=== PATIENT | female | born 1930 | race Two or more races ===

== ENCOUNTER 2016-06-08 01:21 | Emergency (ER) | payer MEDICARE, OTHER ==
[~2016-06-08] VITALS: Ht 162.6 cm; Wt 68.0 kg
[~2016-06-08 01:21] MED LIST: ANTIVERT25 MG ORAL; ASPIR-LOW81 MG PO; ATROVENT 0.03%30 M1 NASAL; CELEXA20 MG ORAL; DETROL LA2 MG ORAL; DIABETIC T100 MG/5 M; DILANTIN50 MG ORAL; DOC-Q-LACE100 M1 PO; EXELON1.5 MG ORAL; FOLIC ACID1 M1; IMODIUM2 MG ORAL; KENALOG IN ORABA1 EA APPLIC; LEVAQUIN750 MG ORAL; LINZESS290 MCG PO; MIRALAX17 G2 ORAL; MOBIC7.5 MG ORAL; OYSTER SHELL C500 MG PO; PEPCID20 MG ORAL; SIMVASTATIN20 MG ORAL; TOPIRAMATE100 MG ORAL; VOLTAREN 1%; ZESTRIL10 MG ORAL; ZOFRAN4 MG ORAL
[2016-06-08 01:30] VITALS: BP 148/78
[2016-06-08] MEDS ORDERED: Norco 5mg/325mg tab ORAL ONE (01:45)
--- NOTE | 2016-06-08 02:46 | Emergency Room Report ---
History of Present Illness General Chief Complaint: Pain Source: EMS Present Illness HPI The patient presents after a fall. According to the assisted living she has right shoulder pain. The patient after extensive questioning states that the pain is mainly in her right upper back when she attempts to ambulate. The shoulder does not hurt her. They allege she did not have a seizure. She has a h/o seizure disorder. No fevers, NVD, headache, dyspnea, chest pain, dysuria. Allergies: Coded Allergies: No Known Allergies (Unverified , 08/09/13) Patient History Past Medical History: see triage record, seizures Social History Narrative assisted living Last Menstrual Period: Unknown Now: No Reviewed Nursing Documentation: PMH: Agreed, PSxH: Agreed Nursing Documentation-PMH Past Medical History: No History, Except For Hx Cardiac Problems: Yes - Hyperlipidemia, anemia Hx Hypertension: Yes Hx Gastrointestinal Problems: Yes - Constipation Hx Neurological Problems: Yes - Alzh. Hx Seizures: Yes - S/P brain surg Review of Systems All Other Systems: negative except mentioned in HPI Physical Exam Vital Signs Date Time Temp Pulse Resp B/P Pulse Ox O2 Delivery O2 Flow Rate FiO2 06/08/16 01:18 98.4 80 16 148/78 100 Room Air Sp02 EP Interpretation: reviewed, normal General Appearance: well appearing, no apparent distress, alert Head: normocephalic, atraumatic Eyes: bilateral eye EOMI, bilateral eye PERRL, bilateral eye normal inspection ENT: moist mucus membranes - no lingual macerations Neck: supple Respiratory: lungs clear, normal breath sounds, other - tenderness R medial to scapula on R Cardiovascular #1: regular rate, rhythm Cardiovascular #2: 2+ radial (R) Gastrointestinal: normal inspection, normal bowel sounds, non tender, no mass, non-distended Musculoskeletal: gait/station normal, normal range of motion - including shoulder, tender - posterior R shoulder Neurologic: alert, motor strength/tone normal, DTRs symmetric, sensory intact, cerebellar normal, normal gait, speech normal - pressured, oriented - X2 Psychiatric: anxious Skin: no rash, other - no hematomata Medical Decision Making Diagnostic Impression: Primary Impression: Back contusion Qualified Codes: S20.221A - Contusion of right back wall of thorax, initial encounter Additional Impression: Fall Qualified Codes: W19.XXXA - Unspecified fall, initial encounter ER Course Patient presents post fall. Difficult to determine site injured - initially x- rayed R shoulder, but then re-evaluated and found to have more upper back pain. CT ordered. Ddx: fx, contusion, strain. Analgesic given. There is no physical evidence of seizure. No laboratory studies indicated. Xrays negative for acute traumatic injury. See various findings of CT below. Patient anxious and ambulating without difficulty. Patient stable for outpatient observation and treatment. Other X-Ray Diagnostic Results Other X-Ray Diagnostic Results : X-Ray Ordered: R shoulder EP Interpretation: Yes Findings: no fractures, no dislocation, no soft tissue swelling, other - djd Number of Views: 3 CT/MRI/US Diagnostic Results CT/MRI/US Diagnostic Results : Imaging Test Ordered: chest Impression Impression: Somewhat limited, due to lack of IV contrast ministration No definite acute traumatic abnormality demonstrated. Noncalcified 5 mm right upper lobe pulmonary nodule. This is stable since prior neck CT of 08/09/2013, and therefore presumed benign Chronic pulmonary parenchymal changes and bilateral basilar atelectasis Diffusely enlarged multinodular thyroid. This is also described on the neck CT scan of 08/09/2013 Cardiomegaly Incidental finding right upper pole renal cyst Last Vital Signs Date Time Temp Pulse Resp B/P Pulse Ox O2 Delivery O2 Flow Rate FiO2 06/08/16 08:44 98.1 79 16 141/79 100 Room Air Status: improved Disposition: ASSISTED LIVING Condition: Improved Scripts Lactulose (LACTULOSE*) 20 Gm/30 Ml Solution 30 ML ORAL BID Y for constipation, #240 ML 0 Refills Prov: Perez Garvey M.D. 06/08/16 Hydrocodone Bit/Acetaminophen 5-325* (NORCO 5-325*) 1 Each Tablet 1 TAB ORAL Q6H Y for For Pain, #16 TAB 0 Refills Prov: Perez Garvey M.D. 06/08/16 Referrals: SYED KIM (PCP) Perez Garvey M.D. Jun 08, 2016 02:46
[2016-06-08] MEDS ORDERED: NORCO 5-325 TA1 EACH ORAL (03:30)
[2016-06-08] MEDS ORDERED: LACTULOSE20 GM/301 ORAL (03:30)
[2016-06-08 03:48] VITALS: BP 144/75
[2016-06-08 05:48] VITALS: BP 146/79
[2016-06-08 07:21] VITALS: BP 141/79
[2016-06-08 08:44] VITALS: BP 141/79
--- NOTE | 2016-06-08 08:52 | Diagnostic Imaging Report ---
Clinical Indication: TRAUMA, chest pain Technique: Spiral acquisitions obtained through the chest. No IV contrast utilized, reason not stated. Multiplanar reconstructions generated. Total dose length product 618 mGycm. CTDIvol(s) 20 mGy. Dose reduction achieved using automated exposure control Comparison: None Findings:No acute fractures are evident. Lungs demonstrate an area of scarring and chronic volume loss at the right lung apex. There is also a 5 mm noncalcified nodule in the right upper lobe, series 4 image 14. This is also evident on prior neck CT, in retrospect. Chronic appearing interstitial changes and compressive atelectatic changes are seen at both lung bases. No pneumothorax. No infiltrates. No effusions. No masses. The heart is enlarged. No pericardial effusion is evident. No evidence of substernal hematoma. No mediastinal or hilar mass or adenopathy. There is a diffuse markedly enlarged heterogeneous thyroid, however. This is incompletely included on the imaging volume. No axillary or chest wall mass or adenopathy. The esophagus is unremarkable. The included upper abdomen and demonstrates a 3 cm cyst in the right renal upper pole. A calcification in the right renal hilum is probably arterial. Impression: Somewhat limited, due to lack of IV contrast ministration No definite acute traumatic abnormality demonstrated. Noncalcified 5 mm right upper lobe pulmonary nodule. This is stable since prior neck CT of 08/09/2013, and therefore presumed benign Chronic pulmonary parenchymal changes and bilateral basilar atelectasis Diffusely enlarged multinodular thyroid. This is also described on the neck CT scan of 08/09/2013 Cardiomegaly Incidental finding right upper pole renal cyst This agrees with the preliminary interpretation provided overnight by [facility]. The CT scanner at [facility] is accredited by the [employer] and the scans are performed using protocols designed to limit radiation exposure to as low as reasonably achievable to attain images of sufficient resolution adequate for diagnostic evaluation.
--- NOTE | 2016-06-08 14:48 | Diagnostic Imaging Report ---
Indication: TRAUMA Technique: 3 views of the right shoulder Comparison: none Findings: No acute fractures. No dislocations. The joint spaces are preserved. Impression:Negative This agrees with the preliminary interpretation provided by the emergency room physician
== END 2016-06-08 08:46 | disposition home or self-care (01) ==
LOC: EDBD 01:21 → EMR 02:03
DX: S20.221A Contusion of right back wall of thorax, initial encounter (principal); E78.5 Hyperlipidemia, unspecified; I10 Essential (primary) hypertension; G40.909 Epilepsy, unspecified, not intractable, without status epilepticus; R91.1 Solitary pulmonary nodule; J98.11 Atelectasis; E04.2 Nontoxic multinodular goiter; I51.7 Cardiomegaly; N28.1 Cyst of kidney, acquired; M25.511 Pain in right shoulder; G30.9 Alzheimer's disease, unspecified; F02.80 Dementia in other diseases classified elsewhere, unspecified severity, without behavioral disturbance, psychotic disturbance, mood disturbance, and anxiety; W18.30XA Fall on same level, unspecified, initial encounter; Y92.199 Unspecified place in other specified residential institution as the place of occurrence of the external cause; Y99.8 Other external cause status
CPT/HCPCS: 71250; 99284

== ENCOUNTER 2017-08-30 11:50 | Emergency (ER) | payer MEDICARE, OTHER ==
[~2017-08-30] VITALS: Ht 160 cm; Wt 72.6 kg
[~2017-08-30 11:50] MED LIST changes: +LACTULOSE20 GM/301 ORAL; +NORCO 5-325 TA1 EACH ORAL
[2017-08-30 11:54] VITALS: BP 157/33
[2017-08-30 12:45] VITALS: BP 148/42
[2017-08-30] MEDS ORDERED: Isovue-300 100ml vial INJ PRN (13:15)
[2017-08-30] MEDS ORDERED: LORazepam Inj 2mg/ml 1ml IV ONE (13:45)
[2017-08-30 14:50] LABS: BASOPHILS % (AUTO) 0.7 % (0.0-2.0); EOSINOPHILS % (AUTO) 0.5 % (0.0-3.0); HEMOGLOBIN 11.6 G/DL (12.0-16.0); LYMPHOCYTES % (AUTO) 23.6 % (20.0-45.0); MEAN CORPUSCULAR VOLUME 91 FL (80-99); MONOCYTES % (AUTO) 12.1 % (1.0-10.0); NEUTROPHILS % (AUTO) 63.1 % (45.0-75.0); PLATELET COUNT 309 K/UL (150-450); RED BLOOD COUNT 3.95 M/UL (4.20-5.40); RED CELL DISTRIBUTION WIDTH 12.1 % (11.6-14.8)
[2017-08-30 15:03] LABS: ANION GAP 8 mmol/L (5-15); BLOOD UREA NITROGEN 39 mg/dL (7-18); CALCIUM 9.7 MG/DL (8.5-10.1); CARBON DIOXIDE 25 MMOL/L (21-32); CHLORIDE 106 MMOL/L (98-107); CREATININE 1.4 MG/DL (0.55-1.30); POTASSIUM 3.4 MMOL/L (3.5-5.1); SODIUM 139 MMOL/L (136-145)
[2017-08-30 15:06] LABS: ALANINE AMINOTRANSFERASE 50 U/L (12-78); ALBUMIN 3.4 G/DL (3.4-5.0); ALBUMIN/GLOBULIN RATIO 0.8 (1.0-2.7); ALKALINE PHOSPHATASE 133 U/L (46-116); ASPARTATE AMINO TRANSFERASE 48 U/L (15-37); BILIRUBIN,TOTAL 0.4 MG/DL (0.2-1.0)
--- NOTE | 2017-08-30 15:49 | Emergency Room Report ---
History of Present Illness General Chief Complaint: Nausea, Vomiting, and Diarrhea Source: EMS Present Illness HPI 86-year-old female presents ED complaining of vomiting and diarrhea 1 day. Coming from [facility] facility. History of dementia. Upon arrival patient showing no signs of distress. No reported chest pain or shortness of breath. No other aggravating relieving factors. No other associated symptoms Allergies: Coded Allergies: No Known Allergies (Unverified , 08/09/13) Patient History Past Medical History: HTN, GERD, dementia, seizures, psych hx Past Surgical History: none Pertinent Family History: none Social History: Denies: smoking, alcohol use, drug use Last Menstrual Period: n/a Now: No Immunizations: UTD Reviewed Nursing Documentation: PMH: Agreed; PSxH: Agreed Nursing Documentation-PMH Hx Cardiac Problems: Yes - anemia, hyperlipidemia Hx Hypertension: Yes Hx Gastrointestinal Problems: Yes - GERD, constipation History Of Psychiatric Problem: Yes - depression Hx Neurological Problems: Yes - Alzh. Hx Seizures: Yes Review of Systems All Other Systems: negative except mentioned in HPI Physical Exam Vital Signs Date Time Temp Pulse Resp B/P (MAP) Pulse Ox O2 Delivery O2 Flow Rate FiO2 08/30/17 11:44 99.9 50 16 135/46 95 Room Air 99.9 Sp02 EP Interpretation: reviewed, normal General Appearance: no apparent distress, alert, GCS 15, non-toxic, other - dementia Head: normocephalic, atraumatic Eyes: bilateral eye normal inspection, bilateral eye PERRL ENT: hearing grossly normal, normal pharynx, no angioedema, normal voice Neck: full range of motion, supple/symm/no masses Respiratory: chest non-tender, lungs clear, normal breath sounds, speaking full sentences Cardiovascular #1: regular rate, rhythm, no edema Cardiovascular #2: 2+ carotid (R), 2+ carotid (L), 2+ radial (R), 2+ radial (L) , 2+ dorsalis pedis (R), 2+ dorsalis pedis (L) Gastrointestinal: normal bowel sounds, non tender, soft, non-distended, no guarding, no rebound Rectal: deferred Genitourinary: normal inspection, no CVA tenderness Musculoskeletal: back normal, gait/station normal, normal range of motion, non- tender Neurologic: alert, responsive, motor strength/tone normal, sensory intact, speech normal, other - dementia Psychiatric: other - dementia Reflexes: 3+ bicep (R), 3+ bicep (L), 3+ tricep (R), 3+ tricep (L), 3+ knee (R) , 3+ knee (L) Skin: normal color, no rash, warm/dry, well hydrated Lymphatic: no adenopathy Medical Decision Making Diagnostic Impression: Primary Impression: Gastroenteritis ER Course Hospital Course 86-year-old F presents to ED with vomiting, diarrhea differential diagnosis: gastritis, SBO, cholecystits, gastroenteritis Clinical course Patient placed on stretcher. On hospital monitor. After initial history and physical I ordered labs, IV fluids, Zofran and Zantac Labs - no leukocytosis, Cr 1.4, LFTs normal findings consistent with gastroenteritis. discussed findings with PMD Dr Riggs. No concern for C. difficile. Vital stable. He agrees that patient can be safely discharged back to facility after IV hydration I feel this is a highly complex case requiring extensive working including EKG/ Rhythm strip, Xray/CT/US, Blood/urine lab work, repeat exams while in ED, and administration of strong opiates/narcotics for pain control, admission to hospital or close patient follow up. Diagnosis - gastroenteritis Stable and discharged to SNF. Followup with PMD. Return to ED if symptoms recur or worsen Labs Test 08/30/17 14:25 White Blood Count 9.0 K/UL (4.8-10.8) Red Blood Count 3.95 M/UL (4.20-5.40) Hemoglobin 11.6 G/DL (12.0-16.0) Hematocrit 36.0 % (37.0-47.0) Mean Corpuscular Volume 91 FL (80-99) Mean Corpuscular Hemoglobin 29.4 PG (27.0-31.0) Mean Corpuscular Hemoglobin Concent 32.3 G/DL (32.0-36.0) Red Cell Distribution Width 12.1 % (11.6-14.8) Platelet Count 309 K/UL (150-450) Mean Platelet Volume 6.2 FL (6.5-10.1) Neutrophils (%) (Auto) 63.1 % (45.0-75.0) Lymphocytes (%) (Auto) 23.6 % (20.0-45.0) Monocytes (%) (Auto) 12.1 % (1.0-10.0) Eosinophils (%) (Auto) 0.5 % (0.0-3.0) Basophils (%) (Auto) 0.7 % (0.0-2.0) Sodium Level 139 MMOL/L (136-145) Potassium Level 3.4 MMOL/L (3.5-5.1) Chloride Level 106 MMOL/L (98-107) Carbon Dioxide Level 25 MMOL/L (21-32) Anion Gap 8 mmol/L (5-15) Blood Urea Nitrogen 39 mg/dL (7-18) Creatinine 1.4 MG/DL (0.55-1.30) Estimat Glomerular Filtration Rate mL/min (>60) Glucose Level 112 MG/DL (74-106) Calcium Level 9.7 MG/DL (8.5-10.1) Total Bilirubin 0.4 MG/DL (0.2-1.0) Aspartate Amino Transf (AST/SGOT) 48 U/L (15-37) Alanine Aminotransferase (ALT/SGPT) 50 U/L (12-78) Alkaline Phosphatase 133 U/L (46-116) Total Protein 7.7 G/DL (6.4-8.2) Albumin 3.4 G/DL (3.4-5.0) Globulin 4.3 g/dL Albumin/Globulin Ratio 0.8 (1.0-2.7) Lipase 215 U/L (73-393) Last Vital Signs Date Time Temp Pulse Resp B/P (MAP) Pulse Ox O2 Delivery O2 Flow Rate FiO2 08/30/17 11:54 99.9 58 12 157/33 99 Room Air 99.9 Status: improved Disposition: XFER SNF Condition: Stable Referrals: Addy Riggs MD Patient Instructions: Viral Gastroenteritis, Adult, [id number] Uche Lr MD Aug 30, 2017 15:49
[2017-08-30 17:40] VITALS: BP 140/65
[2017-08-30 17:45] VITALS: BP 140/65
== END 2017-08-30 17:45 ==
LOC: EDBD 11:50 → EMR 14:00
DX: K52.9 Noninfective gastroenteritis and colitis, unspecified (principal); K21.9 Gastro-esophageal reflux disease without esophagitis; F32.9 Major depressive disorder, single episode, unspecified; G30.9 Alzheimer's disease, unspecified; F02.80 Dementia in other diseases classified elsewhere, unspecified severity, without behavioral disturbance, psychotic disturbance, mood disturbance, and anxiety; E78.5 Hyperlipidemia, unspecified
CPT/HCPCS: 36415; 80053; 83690; 85025; 99284; J2405; S0028

== ENCOUNTER 2017-08-31 19:42 | Inpatient (IN) | payer MEDICARE, OTHER ==
[~2017-08-31] VITALS: Ht 170.2 cm; Wt 74.8 kg
[2017-08-31 20:00] VITALS: BP 158/67
--- NOTE | 2017-08-31 20:07 | Emergency Room Report ---
History of Present Illness General Chief Complaint: Generalized Weakness Source: Patient Present Illness HPI 86-year-old female coming from a [facility] facility for generalized weakness. Patient was seen yesterday and diagnosed with gastroenteritis had a normal workup done with the exception of mild renal insufficiency at 1.4. Patient screaming season saying that she does not want to be here. EMS states pt has been coughing Also daughter stating she is altered Allergies: Coded Allergies: No Known Allergies (Unverified , 08/09/13) Patient History Past Medical History: see triage record Past Surgical History: none Pertinent Family History: none Reviewed Nursing Documentation: PMH: Agreed; PSxH: Agreed Nursing Documentation-PMH Hx Cardiac Problems: Yes - anemia, hyperlipidemia Hx Hypertension: Yes Hx Gastrointestinal Problems: Yes - GERD, constipation Hx Neurological Problems: Yes - Alzh. Hx Seizures: Yes Review of Systems All Other Systems: negative except mentioned in HPI Physical Exam Vital Signs Date Time Temp Pulse Resp B/P (MAP) Pulse Ox O2 Delivery O2 Flow Rate FiO2 08/31/17 19:37 102.4 66 18 172/67 93 Room Air 102.4 Sp02 EP Interpretation: abnormal General Appearance: alert, moderate distress Head: normocephalic, atraumatic Eyes: bilateral eye normal inspection, bilateral eye PERRL, bilateral eye EOMI ENT: normal ENT inspection, normal pharynx, normal voice, moist mucus membranes Neck: normal inspection, full range of motion, supple Respiratory: lungs clear, no retraction, respiratory distress, speaking full sentences, other - +R sided dec b/s, chest symmetrical Cardiovascular #1: normal inspection, regular rate, rhythm, normal capillary refill Cardiovascular #2: 2+ radial (R), 2+ radial (L) Gastrointestinal: normal inspection, non tender, soft, non-distended, no guarding Musculoskeletal: normal inspection, back normal, normal range of motion, non- tender Neurologic: alert, responsive, motor strength/tone normal, sensory intact Skin: normal inspection, normal color, no rash, warm/dry, well hydrated, normal turgor Medical Decision Making Diagnostic Impression: Primary Impression: HCAP (healthcare-associated pneumonia) Additional Impressions: Altered mental status UTI (urinary tract infection) ER Course 86-year-old female coming from [facility] with generalized weakness DDX: Dehydration, electrolyte disturbance, UTI, pneumonia, worsening of her renal failure//enteritis Plan: Obtain labs, ua, EKG, CXR ER course: Patient has been monitored during ED stay, HD stable She was agitated so 2 mg Ativan given broad spec abx given - PNA noted on CXR Fluids given I discussed with Dr Rivera and let him know about patient's status Disposition: ADMIT TO MEDICINE Please note that this Emergency Department Report was dictated using [employer]/event planner technology software, occasionally this can lead to erroneous entry secondary to interpretation by the dictation equipment. EKG Diagnostic Results EP Interpretation: Yes Rate: normal Rhythm: NSR ST Segments: No acute changes ASA given to patient: No Rhythm Strip EP Interpretation: Yes Rate: 80 Rhythm: NSR, no PVCs, no ectopy Chest X-ray CXR: Ordered: Yes 1 view Indication: weakness EP interpretation: Yes Interpretation: R sided PNA Impression:R sided PNA Electronically signed by Fauzia Verma MD Laboratory Tests Test 08/31/17 20:46 09/01/17 07:50 White Blood Count 11.1 K/UL (4.8-10.8) H 13.0 K/UL (4.8-10.8) H Red Blood Count 3.81 M/UL (4.20-5.40) L 4.02 M/UL (4.20-5.40) L Hemoglobin 11.8 G/DL (12.0-16.0) L 12.0 G/DL (12.0-16.0) Hematocrit 34.6 % (37.0-47.0) L 36.8 % (37.0-47.0) L Mean Corpuscular Volume 91 FL (80-99) 91 FL (80-99) Mean Corpuscular Hemoglobin 31.0 PG (27.0-31.0) 29.9 PG (27.0-31.0) Mean Corpuscular Hemoglobin Concent 34.1 G/DL (32.0-36.0) 32.7 G/DL (32.0-36.0) Red Cell Distribution Width 12.1 % (11.6-14.8) 11.8 % (11.6-14.8) Platelet Count 254 K/UL (150-450) 251 K/UL (150-450) Mean Platelet Volume 5.7 FL (6.5-10.1) L 6.4 FL (6.5-10.1) L Neutrophils (%) (Auto) 80.9 % (45.0-75.0) H 76.1 % (45.0-75.0) H Lymphocytes (%) (Auto) 9.6 % (20.0-45.0) L 12.0 % (20.0-45.0) L Monocytes (%) (Auto) 9.0 % (1.0-10.0) 11.5 % (1.0-10.0) H Eosinophils (%) (Auto) 0.0 % (0.0-3.0) 0.1 % (0.0-3.0) Basophils (%) (Auto) 0.5 % (0.0-2.0) 0.4 % (0.0-2.0) Urine Color Pale yellow Urine Appearance Cloudy Urine pH 5 (4.5-8.0) Urine Specific [place] 1.010 (1.005-1.035) Urine Protein 3+ (NEGATIVE) H Urine Glucose (UA) Negative (NEGATIVE) Urine Ketones 1+ (NEGATIVE) H Urine Occult Blood 4+ (NEGATIVE) H Urine Nitrite Positive (NEGATIVE) H Urine Bilirubin Negative (NEGATIVE) Urine Urobilinogen Normal MG/DL (0.0-1.0) Urine Leukocyte Esterase 3+ (NEGATIVE) H Urine RBC 10-15 /HPF (0 - 2) H Urine WBC 30-40 /HPF (0 - 2) H Urine Squamous Epithelial Cells Few /LPF (NONE/OCC) Urine Bacteria Many /HPF (NONE) H Sodium Level 142 MMOL/L (136-145) 143 MMOL/L (136-145) Potassium Level 3.4 MMOL/L (3.5-5.1) L 3.2 MMOL/L (3.5-5.1) L Chloride Level 105 MMOL/L (98-107) 107 MMOL/L (98-107) Carbon Dioxide Level 28 MMOL/L (21-32) 23 MMOL/L (21-32) Anion Gap 9 mmol/L (5-15) 13 mmol/L (5-15) Blood Urea Nitrogen 27 mg/dL (7-18) H 25 mg/dL (7-18) H Creatinine 1.3 MG/DL (0.55-1.30) 1.3 MG/DL (0.55-1.30) Estimate Glomerular Filtration Rate mL/min (>60) mL/min (>60) Glucose Level 166 MG/DL (74-106) H 152 MG/DL (74-106) H Lactic Acid Level 1.60 mmol/L (0.4-2.0) Calcium Level 9.3 MG/DL (8.5-10.1) 8.8 MG/DL (8.5-10.1) Total Bilirubin 0.6 MG/DL (0.2-1.0) 0.8 MG/DL (0.2-1.0) Aspartate Amino Transferase (AST) 71 U/L (15-37) H 61 U/L (15-37) H Alanine Aminotransferase (ALT) 63 U/L (12-78) 58 U/L (12-78) Alkaline Phosphatase 150 U/L (46-116) H 135 U/L (46-116) H Total Creatine Kinase 116 U/L (26-308) Troponin I 0.618 ng/mL (0.000-0.056) 0.474 ng/mL (0.000-0.056) Pro-B-Type Natriuretic Peptide 4396 pg/mL (0-125) H Total Protein 7.9 G/DL (6.4-8.2) 7.4 G/DL (6.4-8.2) Albumin 3.5 G/DL (3.4-5.0) 3.1 G/DL (3.4-5.0) L Globulin 4.4 g/dL 4.3 g/dL Albumin/Globulin Ratio 0.8 (1.0-2.7) L 0.7 (1.0-2.7) L Last Vital Signs Date Time Temp Pulse Resp B/P (MAP) Pulse Ox O2 Delivery O2 Flow Rate FiO2 08/31/17 19:37 102.4 66 18 172/67 93 Room Air 102.4 Disposition: ADMITTED INPATIENT Condition: Fauzia Lobo M.D. Aug 31, 2017 20:07
[2017-08-31] MEDS ORDERED: LORazepam Inj 2mg/ml 1ml IV ONE (20:15)
[2017-08-31] MEDS ORDERED: Piperacillin/Tazobactam 3.375 GM in NS 110 ML IVPB ONE (20:30)
[2017-08-31] MEDS ORDERED: Vancomycin 1.5gm/D5W 250ml 250 ML IVPB ONE (20:30)
[2017-08-31 21:00] VITALS: BP 155/109
[2017-08-31 21:13] LABS: ANION GAP 9 mmol/L (5-15); BLOOD UREA NITROGEN 27 mg/dL (7-18); CALCIUM 9.3 MG/DL (8.5-10.1); CARBON DIOXIDE 28 MMOL/L (21-32); CHLORIDE 105 MMOL/L (98-107); CREATININE 1.3 MG/DL (0.55-1.30); POTASSIUM 3.4 MMOL/L (3.5-5.1); SODIUM 142 MMOL/L (136-145)
[2017-08-31 21:15] LABS: BASOPHILS % (AUTO) 0.5 % (0.0-2.0); HEMATOCRIT 34.6 % (37.0-47.0); HEMOGLOBIN 11.8 G/DL (12.0-16.0); LYMPHOCYTES % (AUTO) 9.6 % (20.0-45.0); MEAN CORPUSCULAR VOLUME 91 FL (80-99); NEUTROPHILS % (AUTO) 80.9 % (45.0-75.0); PLATELET COUNT 254 K/UL (150-450); RED BLOOD COUNT 3.81 M/UL (4.20-5.40); RED CELL DISTRIBUTION WIDTH 12.1 % (11.6-14.8); WHITE BLOOD COUNT 11.1 K/UL (4.8-10.8)
[2017-08-31 21:21] LABS: APPEARANCE,URINE CLOUDY; BILIRUBIN, URINE NEGATIVE (NEGATIVE); GLUCOSE, URINE (UA) NEGATIVE (NEGATIVE); KETONES,URINE 1+ (NEGATIVE); LEUKOCYTE ESTERASE ,URINE 3+ (NEGATIVE); NITRITE,URINE POSITIVE (NEGATIVE); PH,URINE 5 (4.5-8.0); PROTEIN,URINE 3+ (NEGATIVE); UROBILINOGEN,URINE NORMAL MG/DL (0.0-1.0)
[2017-08-31 21:23] LABS: ALANINE AMINOTRANSFERASE 63 U/L (12-78); ALBUMIN 3.5 G/DL (3.4-5.0); ALBUMIN/GLOBULIN RATIO 0.8 (1.0-2.7); ALKALINE PHOSPHATASE 150 U/L (46-116); ASPARTATE AMINO TRANSFERASE 71 U/L (15-37); BILIRUBIN,TOTAL 0.6 MG/DL (0.2-1.0); CREATINE KINASE 116 U/L (26-308)
[2017-08-31 21:24] LABS: COLOR,URINE PALE YELLOW
[2017-08-31 22:00] VITALS: BP 129/95
[2017-08-31 23:00] VITALS: BP 173/95
[2017-08-31] MEDS ORDERED: Enalaprilat 2.5mg/2ml Inj IV ONE (23:30)
[2017-09-01] VITALS (9 sets, daily range): BP systolic 113–182; BP diastolic 52–83
[2017-09-01] MEDS ORDERED: NUEDEXTA 20-101 EAC1 PO (00:25)
[2017-09-01] MEDS ORDERED: NORVASC5 MG ORAL (00:25)
[2017-09-01] MEDS ORDERED: HYZAAR 100-12.1 EACH ORAL (00:25)
[2017-09-01] MEDS ORDERED: Albuterol/Ipratropium 3ml neb HHN PRN (02:15)
[2017-09-01] MEDS ORDERED: Norco 5mg/325mg tab ORAL PRN (02:15)
--- NOTE | 2017-09-01 03:15 | History and Physical Report ---
DATE OF ADMISSION: 08/31/2017 CHIEF COMPLAINT: Coughing and altered mental status. HISTORY OF PRESENT ILLNESS: This is an 86-year-old [place] female who was brought in from assisted [facility] for complaint of coughing and being drowsy and altered for the past two days. The patient was seen in the emergency room yesterday. Her labs and workup were negative except for slight dehydration and the patient was hydrated and sent back to [facility]. However, she was seen today and she was more altered than yesterday and had a temperature in the assisted [facility] up to 101. The patient was taking Levaquin 750 for pneumonia and for bronchitis and apparently, the cough did not improve. She also had the workup of chest x-ray and UA in the emergency room. UA was consistent with urinary tract infection and chest x-ray was consistent with right-sided pneumonia. The patient received IV antibiotic Zosyn and vancomycin in the emergency room. PAST MEDICAL HISTORY: Includes history of hypertension, depression, history of constipation, GERD, osteoarthritis, hyperlipidemia, and has incontinence and memory loss. PAST SURGICAL HISTORY: None. FAMILY HISTORY: Noncontributory. SOCIAL HISTORY: No history of smoking. No alcohol use. No history of IV drug use. The patient resides at the [facility]. ALLERGIES: Questionable allergy to lisinopril. REVIEW OF SYSTEMS: Negative except for HPI. PHYSICAL EXAMINATION: VITAL SIGNS: Include temperature of 102.4, pulse 66, respiration 18, blood pressure 172/67, and pulse oximetry is 90% on room air. GENERAL APPEARANCE: Slightly drowsy with moderate distress. HEENT: Normocephalic and normochromic. Extraocular muscles intact. Throat is clear. NECK: Supple. No lymphadenopathy. LUNGS: Lungs showed right-sided decreased breath sounds. No crackles or rales and there is no respiratory distress. CARDIOVASCULAR: Regular rate and rhythm. No murmur. No gallop. ABDOMEN: Soft, nontender, and nondistended. Positive bowel sounds. EXTREMITIES: Positive for lymphedema. No cyanosis or clubbing. NEUROLOGICAL: Respond to commands and there are no motor or sensory deficits. SKIN: No rash. LABORATORY AND DIAGNOSTIC DATA: Sodium 142, potassium 3.4, chloride 105, carbon dioxide 28, BUN 27, creatinine 1.3, and glucose 166. Lactic acid 1.6. Calcium 9.3. AST 71, ALT 63, and alkaline phosphatase 150. Total creatine kinase 116. Troponin 0.618 and BNP 4396. Albumin 3.5. WBC 11.1, hemoglobin 11.8, hematocrit 34.6, platelet count 254,000, neutrophils 80.9, lymphocytes 9.6, monocytes 9, eosinophils 0, and basophils 0.5. UA showed +3 protein, +1 ketones, and +4 occult blood with positive nitrites and leukocyte esterase of +3, urine rbc 10 to 15, urine wbc 30 to 40, urine squamous epithelial cells are few, and urine bacteria many. Chest x-ray was consistent with right-sided pneumonia. EKG showed normal sinus rhythm, no acute changes. IMPRESSION: 1. Healthcare-associated pneumonia. 2. Altered mental status with mild encephalopathy. 3. Urinary tract infection. 4. Hypertension. 5. Elevated troponin. 6. Slight elevation in liver function tests. 7. History of depression. 8. Hyperlipidemia. 9. History of constipation. 10. Lymphedema. PLAN: 1. The patient will be started on IV antibiotic vancomycin and Zosyn to cover for pneumonia and urinary tract infection. The patient will have urine culture followed. 2. We will start the patient on her oral medications and adjust the blood pressure medications to control the blood pressure. 3. We will repeat the cardiac enzymes, troponin x3. We will have an echo done as an inpatient. The patient will be admitted for minimum of two-night stay for diagnoses of pneumonia and urinary tract infection with mild encephalopathy. Addy Riggs M.D. DR: POORNIMA JOB#: [id number] CC: PETER
[2017-09-01] MEDS: Piperacillin/Tazobactam 3.375 GM in D5W 110 ML IVPB SCH ×3 (04:00→23:12)
[2017-09-01 08:56] LABS: BASOPHILS % (AUTO) 0.4 % (0.0-2.0); EOSINOPHILS % (AUTO) 0.1 % (0.0-3.0); HEMATOCRIT 36.8 % (37.0-47.0); MEAN CORPUSCULAR VOLUME 91 FL (80-99); MONOCYTES % (AUTO) 11.5 % (1.0-10.0); NEUTROPHILS % (AUTO) 76.1 % (45.0-75.0); PLATELET COUNT 251 K/UL (150-450); RED BLOOD COUNT 4.02 M/UL (4.20-5.40); RED CELL DISTRIBUTION WIDTH 11.8 % (11.6-14.8)
[2017-09-01] MEDS: Citalopram Hydrobromide 10mg Tab ORAL SCH (09:00)
[2017-09-01] MEDS ORDERED: Hyzaar 12.5mg/50mg tab ORAL SCH (09:00)
[2017-09-01] MEDS ORDERED: Losartan 50mg tab ORAL SCH (09:00)
[2017-09-01] MEDS ORDERED: Nuedexta Capsule 20/10mg ORAL SCH (09:00)
[2017-09-01] MEDS: Aspirin Baby 81mg ORAL SCH (09:01)
[2017-09-01] MEDS: Heparin 5000 units/ml inj SUBQ SCH ×2 (09:03→23:18)
[2017-09-01] MEDS: Exelon 1.5mg cap ORAL SCH ×2 (09:23→18:03)
[2017-09-01] MEDS: Nuedexta Capsule 20/10mg ORAL SCH ×2 (09:23→18:03)
[2017-09-01 09:31] LABS: ALANINE AMINOTRANSFERASE 58 U/L (12-78); ALBUMIN 3.1 G/DL (3.4-5.0); ALBUMIN/GLOBULIN RATIO 0.7 (1.0-2.7); ALKALINE PHOSPHATASE 135 U/L (46-116); ANION GAP 13 mmol/L (5-15); ASPARTATE AMINO TRANSFERASE 61 U/L (15-37); BILIRUBIN,TOTAL 0.8 MG/DL (0.2-1.0); BLOOD UREA NITROGEN 25 mg/dL (7-18); CALCIUM 8.8 MG/DL (8.5-10.1); CARBON DIOXIDE 23 MMOL/L (21-32); CHLORIDE 107 MMOL/L (98-107); CREATININE 1.3 MG/DL (0.55-1.30); POTASSIUM 3.2 MMOL/L (3.5-5.1); SODIUM 143 MMOL/L (136-145)
--- NOTE | 2017-09-01 11:52 | Diagnostic Imaging Report ---
Indication: Chest pain Comparison: 08/09/2013 A single view chest radiograph was obtained. Findings: Interstitial edema and prominent vascularity demonstrated. There is evidence of a right pleural effusion. Cardiomegaly is present. The bones are mildly osteopenic. IMPRESSION: Congestive heart failure/interstitial edema. Right pleural effusion suspected
--- NOTE | 2017-09-01 12:57 | Consultation ---
History of Present Illness General Date patient seen: Sep 01, 2017 Chief Complaint: Generalized Weakness Present Illness HPI 86-year-old female with hx of mmp and dementia coming from a senior care facility for generalized weakness. the pt is agitated and yelling. She is unable to provide any hx. The staff are unable to care for her. the pt has waxing and waning of consciousness Allergies: Coded Allergies: No Known Allergies (Unverified , 08/09/13) Medication History Scheduled Amlodipine Besylate (Norvasc), 5 MG ORAL DAILY, (Reported) Aspirin* (Aspir-Low*), 81 MG PO DAILY, (Reported) Calcium Carbonate (Oyster Shell Calcium), 500 MG PO DAILY, (Reported) Citalopram Hydrobromide* (Celexa*), 20 MG ORAL DAILY, (Reported) Docusate Sodium (Doc-Q-Lace), 100 MG PO BID, (Reported) Famotidine (Pepcid), 20 MG ORAL BEDTIME, (Reported) Ipratropium [place] (Atrovent), 1 SPRAY NASAL BID, (Reported) Levofloxacin* (Levaquin*), 750 MG ORAL DAILY Linaclotide (Linzess), 290 MCG PO ACBREAKFAST, (Reported) Lisinopril* (Zestril*), 10 MG ORAL DAILY, (Reported) Losartan/Hydrochlorothiazide 100-12.5 Tablet (Hyzaar 100-12.5 Tablet), 1 TAB ORAL DAILY, (Reported) Meloxicam* (Mobic*), 7.5 MG ORAL DAILY, (Reported) Phenytoin (Dilantin), 100 MG ORAL QHS, (Reported) Rivastigmine Tartrate* (Exelon*), 1.5 MG ORAL TWICE A DAY, (Reported) Simvastatin (Zocor), 20 MG ORAL BEDTIME, (Reported) Tolterodine Tartrate (Detrol La), 2 MG ORAL DAILY, (Reported) Topiramate* (Topamax*), 100 MG ORAL DAILY, (Reported) Scheduled PRN Hydrocodone Bit/Acetaminophen 5-325* ([place] 5-325*), 1 TAB ORAL Q6H PRN for For Pain Lactulose (Lactulose*), 30 ML ORAL BID PRN for constipation Loperamide HCl (Loperamide), 2 MG ORAL BID PRN for Diarrhea, (Reported) Meclizine Hcl* (Antivert*), 25 MG ORAL BID PRN for for dizziness, (Reported) Ondansetron (Zofran), 4 MG ORAL Q8H PRN for Nausea & Vomiting, (Reported) Polyethylene Glycol 3350* (Miralax*), 17 GM ORAL DAILY PRN for Constipation, ( Reported) Triamcinolone (Triamcinolone Acetonide), 1 EA APPLIC BID PRN for skin irritation , (Reported) Miscellaneous Medications Dextromethorphan Hbr/Quinidine (Nuedexta 20-10 Mg Capsule), 1 EACH PO, (Reported ) Folic Acid (Folic Acid), (Reported) Guaifenesin (Diabetic Tussin Ex), (Reported) [voltaren gel 1 %], (Reported) Patient History Limited by: medical condition History Provided By: Patient, Medical Record, PMD Healthcare decision maker Resuscitation status Full Code Advanced Directive on File Past Medical/Surgical History Past Medical/Surgical History: (1) Peritonsillar abscess (2) Peritonsillar abscess (3) Peritonsillar abscess (4) Oropharyngeal mass (5) Oropharyngeal mass (6) Fall (7) Back contusion (8) Gastroenteritis (9) UTI (urinary tract infection) (10) Altered mental status (11) HCAP (healthcare-associated pneumonia) (12) Fever (13) Weakness (14) UTI (urinary tract infection) (15) Pneumonia Review of Systems Psychiatric: Reports: prior hx, anxiety, depressed feelings, emotional problems Physical Exam General Appearance: no apparent distress, lethargic, confused, agitated Last 24 Hour Vital Signs Date Time Temp Pulse Resp B/P (MAP) Pulse Ox O2 Delivery O2 Flow Rate FiO2 09/01/17 09:59 96.3 09/01/17 09:01 133/56 09/01/17 09:01 57 133/56 09/01/17 08:57 133/56 09/01/17 08:11 96.3 57 18 133/56 (81) 95 96.3 09/01/17 04:20 109 144/56 09/01/17 04:00 109 09/01/17 04:00 98.8 109 22 144/56 (85) 95 98.8 09/01/17 03:14 Room Air 09/01/17 02:44 99.1 64 22 147/62 (90) 96 99.1 09/01/17 00:50 99.1 60 18 129/83 100 Room Air 99.1 09/01/17 00:45 99.1 60 18 129/83 100 Room Air 99.1 09/01/17 00:30 99.1 62 18 155/52 99 Room Air 99.1 09/01/17 00:00 99.1 58 21 182/78 98 Room Air 99.1 08/31/17 23:51 182/78 08/31/17 23:00 99.1 65 18 173/95 99 Room Air 99.1 08/31/17 22:00 99.6 61 21 129/95 97 Room Air 99.6 08/31/17 21:00 100.2 62 18 155/109 96 Room Air 100.2 08/31/17 20:00 101.2 65 18 158/67 95 Room Air 101.2 08/31/17 19:37 102.4 66 18 172/67 93 Room Air 102.4 Intake and Output 08/31/17 09/01/17 19:00 07:00 Intake Total 1442.5 ml Output Total 400 ml Balance 1042.5 ml IV Total 1442.5 ml Output Urine Total 400 ml Laboratory Tests Test 08/31/17 20:46 09/01/17 07:50 White Blood Count 11.1 K/UL (4.8-10.8) H 13.0 K/UL (4.8-10.8) H Red Blood Count 3.81 M/UL (4.20-5.40) L 4.02 M/UL (4.20-5.40) L Hemoglobin 11.8 G/DL (12.0-16.0) L 12.0 G/DL (12.0-16.0) Hematocrit 34.6 % (37.0-47.0) L 36.8 % (37.0-47.0) L Mean Corpuscular Volume 91 FL (80-99) 91 FL (80-99) Mean Corpuscular Hemoglobin 31.0 PG (27.0-31.0) 29.9 PG (27.0-31.0) Mean Corpuscular Hemoglobin Concent 34.1 G/DL (32.0-36.0) 32.7 G/DL (32.0-36.0) Red Cell Distribution Width 12.1 % (11.6-14.8) 11.8 % (11.6-14.8) Platelet Count 254 K/UL (150-450) 251 K/UL (150-450) Mean Platelet Volume 5.7 FL (6.5-10.1) L 6.4 FL (6.5-10.1) L Neutrophils (%) (Auto) 80.9 % (45.0-75.0) H 76.1 % (45.0-75.0) H Lymphocytes (%) (Auto) 9.6 % (20.0-45.0) L 12.0 % (20.0-45.0) L Monocytes (%) (Auto) 9.0 % (1.0-10.0) 11.5 % (1.0-10.0) H Eosinophils (%) (Auto) 0.0 % (0.0-3.0) 0.1 % (0.0-3.0) Basophils (%) (Auto) 0.5 % (0.0-2.0) 0.4 % (0.0-2.0) Urine Color Pale yellow Urine Appearance Cloudy Urine pH 5 (4.5-8.0) Urine Specific [place] 1.010 (1.005-1.035) Urine Protein 3+ (NEGATIVE) H Urine Glucose (UA) Negative (NEGATIVE) Urine Ketones 1+ (NEGATIVE) H Urine Occult Blood 4+ (NEGATIVE) H Urine Nitrite Positive (NEGATIVE) H Urine Bilirubin Negative (NEGATIVE) Urine Urobilinogen Normal MG/DL (0.0-1.0) Urine Leukocyte Esterase 3+ (NEGATIVE) H Urine RBC 10-15 /HPF (0 - 2) H Urine WBC 30-40 /HPF (0 - 2) H Urine Squamous Epithelial Cells Few /LPF (NONE/OCC) Urine Bacteria Many /HPF (NONE) H Sodium Level 142 MMOL/L (136-145) 143 MMOL/L (136-145) Potassium Level 3.4 MMOL/L (3.5-5.1) L 3.2 MMOL/L (3.5-5.1) L Chloride Level 105 MMOL/L (98-107) 107 MMOL/L (98-107) Carbon Dioxide Level 28 MMOL/L (21-32) 23 MMOL/L (21-32) Anion Gap 9 mmol/L (5-15) 13 mmol/L (5-15) Blood Urea Nitrogen 27 mg/dL (7-18) H 25 mg/dL (7-18) H Creatinine 1.3 MG/DL (0.55-1.30) 1.3 MG/DL (0.55-1.30) Estimat Glomerular Filtration Rate mL/min (>60) mL/min (>60) Glucose Level 166 MG/DL (74-106) H 152 MG/DL (74-106) H Lactic Acid Level 1.60 mmol/L (0.4-2.0) Calcium Level 9.3 MG/DL (8.5-10.1) 8.8 MG/DL (8.5-10.1) Total Bilirubin 0.6 MG/DL (0.2-1.0) 0.8 MG/DL (0.2-1.0) Aspartate Amino Transf (AST/SGOT) 71 U/L (15-37) H 61 U/L (15-37) H Alanine Aminotransferase (ALT/SGPT) 63 U/L (12-78) 58 U/L (12-78) Alkaline Phosphatase 150 U/L (46-116) H 135 U/L (46-116) H Total Creatine Kinase 116 U/L (26-308) Troponin I 0.618 ng/mL (0.000-0.056) 0.474 ng/mL (0.000-0.056) Pro-B-Type Natriuretic Peptide 4396 pg/mL (0-125) H Total Protein 7.9 G/DL (6.4-8.2) 7.4 G/DL (6.4-8.2) Albumin 3.5 G/DL (3.4-5.0) 3.1 G/DL (3.4-5.0) L Globulin 4.4 g/dL 4.3 g/dL Albumin/Globulin Ratio 0.8 (1.0-2.7) L 0.7 (1.0-2.7) L Height (Feet): 5 Height (Inches): 7.00 Weight (Pounds): 165 Medications Current Medications Medications (Trade) Dose Ordered Sig/Kelly Route PRN Reason Start Time Stop Time Status Last Admin Dose Admin Acetaminophen (Tylenol) 650 mg Q6H PRN ORAL Mild Pain/Temp > 100.5 09/01/17 02:15 10/01/17 02:14 Acetaminophen/ Hydrocodone Bitart ([place] 5/325) 1 tab Q8H PRN ORAL For Pain 09/01/17 02:15 09/08/17 02:14 09/01/17 09:00 Albuterol/ Ipratropium (Albuterol/ Ipratropium) 3 ml Q6H PRN HHN Shortness of Breath 09/01/17 02:15 09/06/17 02:14 Amlodipine Besylate (Norvasc) 5 mg DAILY ORAL 09/01/17 09:00 10/01/17 08:59 09/01/17 09:01 Aspirin (ASA) 81 mg DAILY ORAL 09/01/17 09:00 10/01/17 08:59 09/01/17 09:01 Atorvastatin Calcium (Lipitor) 10 mg BEDTIME ORAL 09/01/17 21:00 10/01/17 20:59 Citalopram Hydrobromide (celeXA) 20 mg DAILY ORAL 09/01/17 09:00 10/01/17 08:59 09/01/17 09:00 Dextromethorphan/ Quinidine (Nuedexta Capsule) 1 cap BID ORAL 09/01/17 09:00 10/01/17 08:59 09/01/17 09:23 Famotidine (Pepcid) 20 mg BEDTIME ORAL 09/01/17 21:00 10/01/17 20:59 HCTZ/Losartan Potassium (Hyzaar 50-12.5) 1 tab DAILY ORAL 09/01/17 09:00 10/01/17 08:59 09/01/17 08:57 Heparin Sodium (Porcine) (Heparin 5000 units/ml) 5,000 units EVERY 12 HOURS SUBQ 09/01/17 09:00 10/01/17 08:59 09/01/17 09:03 Losartan Potassium (Cozaar) 50 mg DAILY ORAL 09/01/17 09:00 10/01/17 08:59 09/01/17 09:01 Meloxicam (Mobic) 7.5 mg DAILY ORAL 09/01/17 09:00 10/01/17 08:59 09/01/17 09:01 Ondansetron HCl (Zofran) 4 mg Q8H PRN ORAL Nausea & Vomiting 09/01/17 02:15 10/01/17 02:14 Phenytoin (Dilantin) 300 mg BEDTIME ORAL 09/01/17 21:00 10/01/17 20:59 Piperacillin Sod/ Tazobactam Sod 3.375 gm/Dextrose 110 ml @ 27.5 mls/hr Q8HR@0400,1200,2000 IVPB 09/01/17 04:00 09/08/17 03:59 09/01/17 12:01 Rivastigmine Tartrate (Exelon) 1.5 mg TWICE A DAY ORAL 09/01/17 09:00 10/01/17 08:59 09/01/17 09:23 Topiramate (Topamax) 100 mg DAILY ORAL 09/02/17 09:00 10/02/17 08:59 Vancomycin HCl (Vanco rx to dose) 1 ea DAILY PRN MISC Per rx protocol 09/01/17 02:45 10/01/17 02:44 Vancomycin HCl 1 gm/Dextrose 275 ml @ 183.708 mls/hr Q24H IVPB 09/02/17 00:00 09/07/17 00:00 Assessment/Plan Assessment/Plan Encephalopathy Agitation Dementia with behavioral dis -seroquel prn -provided ro - d/w staff Dayanna Luque MD Sep 01, 2017 12:57
--- NOTE | 2017-09-01 14:59 | Cardiology Report ---
APPROVED REPORT EXAM: Two-dimensional and M-mode echocardiogram with Doppler and color Doppler. INDICATION ALTERED LOC M-Mode DIMENSIONS IVSd2.1 (0.7-1.1cm)Left Atrium (MM)3.9 (1.6-4.0cm) LVDd4.7 (3.5-5.6cm)Aortic Root3.6 (2.0-3.7cm) PWd2.3 (0.7-1.1cm)Aortic Cusp Exc.1.9 (1.5-2.0cm) IVSs3.1 cm LVDs2.9 (2.5-4.0cm) PWs1.6 cm Normal left ventricular chamber size, systolic function and wall motion to extent visualized. Left ventricular ejection fraction estimated to be 55-60 %. No evidence of left ventricular hypertrophy. No evidence of pericardial effusion. All other cardiac chamber sizes are within normal limits. Focal aortic valve sclerosis with adequate cusp excursion. Thickened mitral valve leaflets with normal excursion. Mitral annulus and aortic root calcification. Pulmonic valve not well visualized. Normal tricuspid valve structure. IVC at 2.0 cm without physiologic collapse suggestive of increased RA pressure. A color flow and spectral Doppler study was performed and revealed: No aortic regurgitation. Mild mitral regurgitation. Normal left ventricular diastolic function . Mild tricuspid regurgitation. Tricuspid systolic velocities suggests peak right ventricular systolic pressure of 33 mmHg No Pulmonic regurgitation present.
--- NOTE | 2017-09-01 16:09 | Consultation ---
History of Present Illness General Date patient seen: Sep 01, 2017 Time patient seen: 16:00 Chief Complaint: Generalized Weakness Present Illness HPI Patient with history of hypertension, depression, history of constipation, GERD , osteoarthritis, hyperlipidemia, and has incontinence and memory loss.AOx1 was brought in by [facility] ambulance from [facility] with c/o generalized weakness. Patient was seen and released yesterday for similar symptoms. Patient is demented and easily agitated.The patient was taking Levaquin 750 for pneumonia and for bronchitis and apparently, the cough did not improve. She also had the workup of chest x-ray and UA in the emergency room. UA was consistent with urinary tract infection and chest x-ray was consistent with right-sided pneumonia. The patient received IV antibiotic Zosyn and vancomycin in the emergency room. cardiology consulted for elevated troponin. CXR with possible right pleural effusion, UA consistent with UTI, echo with preserved LV function. No chest pain currently. Allergies: Coded Allergies: No Known Allergies (Unverified , 08/09/13) Medication History Scheduled Amlodipine Besylate (Norvasc), 5 MG ORAL DAILY, (Reported) Aspirin* (Aspir-Low*), 81 MG PO DAILY, (Reported) Calcium Carbonate (Oyster Shell Calcium), 500 MG PO DAILY, (Reported) Citalopram Hydrobromide* (Celexa*), 20 MG ORAL DAILY, (Reported) Docusate Sodium (Doc-Q-Lace), 100 MG PO BID, (Reported) Famotidine (Pepcid), 20 MG ORAL BEDTIME, (Reported) Ipratropium [place] (Atrovent), 1 SPRAY NASAL BID, (Reported) Levofloxacin* (Levaquin*), 750 MG ORAL DAILY Linaclotide (Linzess), 290 MCG PO ACBREAKFAST, (Reported) Lisinopril* (Zestril*), 10 MG ORAL DAILY, (Reported) Losartan/Hydrochlorothiazide 100-12.5 Tablet (Hyzaar 100-12.5 Tablet), 1 TAB ORAL DAILY, (Reported) Meloxicam* (Mobic*), 7.5 MG ORAL DAILY, (Reported) Phenytoin (Dilantin), 100 MG ORAL QHS, (Reported) Rivastigmine Tartrate* (Exelon*), 1.5 MG ORAL TWICE A DAY, (Reported) Simvastatin (Zocor), 20 MG ORAL BEDTIME, (Reported) Tolterodine Tartrate (Detrol La), 2 MG ORAL DAILY, (Reported) Topiramate* (Topamax*), 100 MG ORAL DAILY, (Reported) Scheduled PRN Hydrocodone Bit/Acetaminophen 5-325* ([place] 5-325*), 1 TAB ORAL Q6H PRN for For Pain Lactulose (Lactulose*), 30 ML ORAL BID PRN for constipation Loperamide HCl (Loperamide), 2 MG ORAL BID PRN for Diarrhea, (Reported) Meclizine Hcl* (Antivert*), 25 MG ORAL BID PRN for for dizziness, (Reported) Ondansetron (Zofran), 4 MG ORAL Q8H PRN for Nausea & Vomiting, (Reported) Polyethylene Glycol 3350* (Miralax*), 17 GM ORAL DAILY PRN for Constipation, ( Reported) Triamcinolone (Triamcinolone Acetonide), 1 EA APPLIC BID PRN for skin irritation , (Reported) Miscellaneous Medications Dextromethorphan Hbr/Quinidine (Nuedexta 20-10 Mg Capsule), 1 EACH PO, (Reported ) Folic Acid (Folic Acid), (Reported) Guaifenesin (Diabetic Tussin Ex), (Reported) [voltaren gel 1 %], (Reported) Patient History Healthcare decision maker Resuscitation status Full Code Advanced Directive on File Review of Systems Constitutional: Reports: chills, sweats, fever, malaise, weakness Eye: Reports: no symptoms ENT: Reports: no symptoms Cardiovascular: Reports: no symptoms Gastrointestinal: Reports: no symptoms Genitourinary: Reports: no symptoms Musculoskeletal: Reports: no symptoms Skin: Reports: no symptoms Psychiatric: Reports: no symptoms Neurological: Reports: no symptoms Endocrine: Reports: no symptoms Hematologic/Lymphatic: Reports: no symptoms Physical Exam General Appearance: no apparent distress Lines, tubes and drains: peripheral HEENT: normocephalic Neck: non-tender Respiratory/Chest: chest wall non-tender Cardiovascular/Chest: normal peripheral pulses Abdomen: normal bowel sounds Extremities: normal range of motion Skin Exam: normal pigmentation Neurologic: motor weakness, sensory deficit, disoriented, depressed affect Last 24 Hour Vital Signs Date Time Temp Pulse Resp B/P (MAP) Pulse Ox O2 Delivery O2 Flow Rate FiO2 7/11/18 09:59 96.3 09/01/17 09:01 133/56 09/01/17 09:01 57 133/56 09/01/17 08:57 133/56 09/01/17 08:11 96.3 57 18 133/56 (81) 95 96.3 09/01/17 04:20 109 144/56 09/01/17 04:00 109 09/01/17 04:00 98.8 109 22 144/56 (85) 95 98.8 09/01/17 03:14 Room Air 09/01/17 02:44 99.1 64 22 147/62 (90) 96 99.1 09/01/17 00:50 99.1 60 18 129/83 100 Room Air 99.1 09/01/17 00:45 99.1 60 18 129/83 100 Room Air 99.1 09/01/17 00:30 99.1 62 18 155/52 99 Room Air 99.1 09/01/17 00:00 99.1 58 21 182/78 98 Room Air 99.1 08/31/17 23:51 182/78 08/31/17 23:00 99.1 65 18 173/95 99 Room Air 99.1 08/31/17 22:00 99.6 61 21 129/95 97 Room Air 99.6 08/31/17 21:00 100.2 62 18 155/109 96 Room Air 100.2 08/31/17 20:00 101.2 65 18 158/67 95 Room Air 101.2 08/31/17 19:37 102.4 66 18 172/67 93 Room Air 102.4 Intake and Output 08/31/17 09/01/17 19:00 07:00 Intake Total 1442.5 ml Output Total 400 ml Balance 1042.5 ml IV Total 1442.5 ml Output Urine Total 400 ml Laboratory Tests Test 08/31/17 20:46 09/01/17 07:50 White Blood Count 11.1 K/UL (4.8-10.8) H 13.0 K/UL (4.8-10.8) H Red Blood Count 3.81 M/UL (4.20-5.40) L 4.02 M/UL (4.20-5.40) L Hemoglobin 11.8 G/DL (12.0-16.0) L 12.0 G/DL (12.0-16.0) Hematocrit 34.6 % (37.0-47.0) L 36.8 % (37.0-47.0) L Mean Corpuscular Volume 91 FL (80-99) 91 FL (80-99) Mean Corpuscular Hemoglobin 31.0 PG (27.0-31.0) 29.9 PG (27.0-31.0) Mean Corpuscular Hemoglobin Concent 34.1 G/DL (32.0-36.0) 32.7 G/DL (32.0-36.0) Red Cell Distribution Width 12.1 % (11.6-14.8) 11.8 % (11.6-14.8) Platelet Count 254 K/UL (150-450) 251 K/UL (150-450) Mean Platelet Volume 5.7 FL (6.5-10.1) L 6.4 FL (6.5-10.1) L Neutrophils (%) (Auto) 80.9 % (45.0-75.0) H 76.1 % (45.0-75.0) H Lymphocytes (%) (Auto) 9.6 % (20.0-45.0) L 12.0 % (20.0-45.0) L Monocytes (%) (Auto) 9.0 % (1.0-10.0) 11.5 % (1.0-10.0) H Eosinophils (%) (Auto) 0.0 % (0.0-3.0) 0.1 % (0.0-3.0) Basophils (%) (Auto) 0.5 % (0.0-2.0) 0.4 % (0.0-2.0) Urine Color Pale yellow Urine Appearance Cloudy Urine pH 5 (4.5-8.0) Urine Specific [place] 1.010 (1.005-1.035) Urine Protein 3+ (NEGATIVE) H Urine Glucose (UA) Negative (NEGATIVE) Urine Ketones 1+ (NEGATIVE) H Urine Occult Blood 4+ (NEGATIVE) H Urine Nitrite Positive (NEGATIVE) H Urine Bilirubin Negative (NEGATIVE) Urine Urobilinogen Normal MG/DL (0.0-1.0) Urine Leukocyte Esterase 3+ (NEGATIVE) H Urine RBC 10-15 /HPF (0 - 2) H Urine WBC 30-40 /HPF (0 - 2) H Urine Squamous Epithelial Cells Few /LPF (NONE/OCC) Urine Bacteria Many /HPF (NONE) H Sodium Level 142 MMOL/L (136-145) 143 MMOL/L (136-145) Potassium Level 3.4 MMOL/L (3.5-5.1) L 3.2 MMOL/L (3.5-5.1) L Chloride Level 105 MMOL/L (98-107) 107 MMOL/L (98-107) Carbon Dioxide Level 28 MMOL/L (21-32) 23 MMOL/L (21-32) Anion Gap 9 mmol/L (5-15) 13 mmol/L (5-15) Blood Urea Nitrogen 27 mg/dL (7-18) H 25 mg/dL (7-18) H Creatinine 1.3 MG/DL (0.55-1.30) 1.3 MG/DL (0.55-1.30) Estimat Glomerular Filtration Rate mL/min (>60) mL/min (>60) Glucose Level 166 MG/DL (74-106) H 152 MG/DL (74-106) H Lactic Acid Level 1.60 mmol/L (0.4-2.0) Calcium Level 9.3 MG/DL (8.5-10.1) 8.8 MG/DL (8.5-10.1) Total Bilirubin 0.6 MG/DL (0.2-1.0) 0.8 MG/DL (0.2-1.0) Aspartate Amino Transf (AST/SGOT) 71 U/L (15-37) H 61 U/L (15-37) H Alanine Aminotransferase (ALT/SGPT) 63 U/L (12-78) 58 U/L (12-78) Alkaline Phosphatase 150 U/L (46-116) H 135 U/L (46-116) H Total Creatine Kinase 116 U/L (26-308) Troponin I 0.618 ng/mL (0.000-0.056) 0.474 ng/mL (0.000-0.056) Pro-B-Type Natriuretic Peptide 4396 pg/mL (0-125) H Total Protein 7.9 G/DL (6.4-8.2) 7.4 G/DL (6.4-8.2) Albumin 3.5 G/DL (3.4-5.0) 3.1 G/DL (3.4-5.0) L Globulin 4.4 g/dL 4.3 g/dL Albumin/Globulin Ratio 0.8 (1.0-2.7) L 0.7 (1.0-2.7) L Height (Feet): 5 Height (Inches): 7.00 Weight (Pounds): 165 Medications Current Medications Medications (Trade) Dose Ordered Sig/Kelly Route PRN Reason Start Time Stop Time Status Last Admin Dose Admin Acetaminophen (Tylenol) 650 mg Q6H PRN ORAL Mild Pain/Temp > 100.5 09/01/17 02:15 10/01/17 02:14 Acetaminophen/ Hydrocodone Bitart ([place] 5/325) 1 tab Q8H PRN ORAL For Pain 09/01/17 02:15 09/08/17 02:14 09/01/17 09:00 Albuterol/ Ipratropium (Albuterol/ Ipratropium) 3 ml Q6H PRN HHN Shortness of Breath 09/01/17 02:15 09/06/17 02:14 Amlodipine Besylate (Norvasc) 5 mg DAILY ORAL 09/01/17 09:00 10/01/17 08:59 09/01/17 09:01 Aspirin (ASA) 81 mg DAILY ORAL 09/01/17 09:00 10/01/17 08:59 09/01/17 09:01 Atorvastatin Calcium (Lipitor) 10 mg BEDTIME ORAL 09/01/17 21:00 10/01/17 20:59 Citalopram Hydrobromide (celeXA) 20 mg DAILY ORAL 09/01/17 09:00 10/01/17 08:59 09/01/17 09:00 Dextromethorphan/ Quinidine (Nuedexta Capsule) 1 cap BID ORAL 09/01/17 09:00 10/01/17 08:59 09/01/17 09:23 Famotidine (Pepcid) 20 mg BEDTIME ORAL 09/01/17 21:00 10/01/17 20:59 HCTZ/Losartan Potassium (Hyzaar 50-12.5) 1 tab DAILY ORAL 09/01/17 09:00 10/01/17 08:59 09/01/17 08:57 Heparin Sodium (Porcine) (Heparin 5000 units/ml) 5,000 units EVERY 12 HOURS SUBQ 09/01/17 09:00 10/01/17 08:59 09/01/17 09:03 Losartan Potassium (Cozaar) 50 mg DAILY ORAL 09/01/17 09:00 10/01/17 08:59 09/01/17 09:01 Meloxicam (Mobic) 7.5 mg DAILY ORAL 09/01/17 09:00 10/01/17 08:59 09/01/17 09:01 Ondansetron HCl (Zofran) 4 mg Q8H PRN ORAL Nausea & Vomiting 09/01/17 02:15 10/01/17 02:14 Phenytoin (Dilantin) 300 mg BEDTIME ORAL 09/01/17 21:00 10/01/17 20:59 Piperacillin Sod/ Tazobactam Sod 3.375 gm/Dextrose 110 ml @ 27.5 mls/hr Q8HR@0400,1200,2000 IVPB 09/01/17 04:00 09/08/17 03:59 09/01/17 12:01 Quetiapine Fumarate (SEROquel) 12.5 mg EVERY 4 HOURS PRN ORAL anxiety 09/01/17 13:00 10/01/17 12:59 Rivastigmine Tartrate (Exelon) 1.5 mg TWICE A DAY ORAL 09/01/17 09:00 10/01/17 08:59 09/01/17 09:23 Topiramate (Topamax) 100 mg DAILY ORAL 09/02/17 09:00 10/02/17 08:59 Vancomycin HCl (Vanco rx to dose) 1 ea DAILY PRN MISC Per rx protocol 09/01/17 02:45 10/01/17 02:44 Vancomycin HCl 1 gm/Dextrose 275 ml @ 183.708 mls/hr Q24H IVPB 09/02/17 00:00 09/07/17 00:00 Assessment/Plan Status: stable Assessment/Plan 1. Healthcare-associated pneumonia. 2. Altered mental status with mild encephalopathy. 3. Urinary tract infection. 4. Hypertension. 5. Elevated troponin. 6. Slight elevation in liver function tests. 7. History of depression. 8. Hyperlipidemia. 9. History of constipation. 10. Lymphedema. Plan Serial troponin -> downtrending, likely from urosepsis/PNA No indication for cath due to advanced age If troponin rises and conservatively give heparin gtt x48 hours Aspirin statin Physical therapy IV abx for UTI IV fluid hydration Amlodipine and Hyzaar for hypertension Perez Partida M.D. Sep 01, 2017 16:08
--- NOTE | 2017-09-01 16:18 | Cardiology Report ---
APPROVED REPORT EKG Measurement Heart [id number] Sinus rhythm with premature atrial complexes Nonspecific ST abnormality Abnormal ECG
--- NOTE | 2017-09-01 16:49 | Infectious Diseases Prog Note ---
Assessment/Plan Problems: (1) HCAP (healthcare-associated pneumonia) Assessment & Plan: continue vancomycin and zosyn empiric coverage for now, will order sputum culture (2) UTI (urinary tract infection) Assessment & Plan: will send urine culture, continue zosyn (3) Altered mental status Assessment & Plan: suspect metabolic and due to the above, continue neuro check (4) Fever Assessment & Plan: due to the above, improving, continue wide spectrum antibiotics and Tylenol (5) Sepsis Subjective Allergies: Coded Allergies: No Known Allergies (Unverified , 08/09/13) Objective Vital Signs Last 24 Hour Vital Signs Date Time Temp Pulse Resp B/P (MAP) Pulse Ox O2 Delivery O2 Flow Rate FiO2 09/01/17 09:59 96.3 09/01/17 09:01 133/56 09/01/17 09:01 57 133/56 09/01/17 08:57 133/56 09/01/17 08:11 96.3 57 18 133/56 (81) 95 96.3 09/01/17 04:20 109 144/56 09/01/17 04:00 109 09/01/17 04:00 98.8 109 22 144/56 (85) 95 98.8 09/01/17 03:14 Room Air 09/01/17 02:44 99.1 64 22 147/62 (90) 96 99.1 09/01/17 00:50 99.1 60 18 129/83 100 Room Air 99.1 09/01/17 00:45 99.1 60 18 129/83 100 Room Air 99.1 09/01/17 00:30 99.1 62 18 155/52 99 Room Air 99.1 09/01/17 00:00 99.1 58 21 182/78 98 Room Air 99.1 08/31/17 23:51 182/78 08/31/17 23:00 99.1 65 18 173/95 99 Room Air 99.1 08/31/17 22:00 99.6 61 21 129/95 97 Room Air 99.6 08/31/17 21:00 100.2 62 18 155/109 96 Room Air 100.2 08/31/17 20:00 101.2 65 18 158/67 95 Room Air 101.2 08/31/17 19:37 102.4 66 18 172/67 93 Room Air 102.4 Height (Feet): 5 Height (Inches): 7.00 Weight (Pounds): 165 Laboratory Tests Test 08/31/17 20:46 09/01/17 07:50 White Blood Count 11.1 K/UL (4.8-10.8) H 13.0 K/UL (4.8-10.8) H Red Blood Count 3.81 M/UL (4.20-5.40) L 4.02 M/UL (4.20-5.40) L Hemoglobin 11.8 G/DL (12.0-16.0) L 12.0 G/DL (12.0-16.0) Hematocrit 34.6 % (37.0-47.0) L 36.8 % (37.0-47.0) L Mean Corpuscular Volume 91 FL (80-99) 91 FL (80-99) Mean Corpuscular Hemoglobin 31.0 PG (27.0-31.0) 29.9 PG (27.0-31.0) Mean Corpuscular Hemoglobin Concent 34.1 G/DL (32.0-36.0) 32.7 G/DL (32.0-36.0) Red Cell Distribution Width 12.1 % (11.6-14.8) 11.8 % (11.6-14.8) Platelet Count 254 K/UL (150-450) 251 K/UL (150-450) Mean Platelet Volume 5.7 FL (6.5-10.1) L 6.4 FL (6.5-10.1) L Neutrophils (%) (Auto) 80.9 % (45.0-75.0) H 76.1 % (45.0-75.0) H Lymphocytes (%) (Auto) 9.6 % (20.0-45.0) L 12.0 % (20.0-45.0) L Monocytes (%) (Auto) 9.0 % (1.0-10.0) 11.5 % (1.0-10.0) H Eosinophils (%) (Auto) 0.0 % (0.0-3.0) 0.1 % (0.0-3.0) Basophils (%) (Auto) 0.5 % (0.0-2.0) 0.4 % (0.0-2.0) Urine Color Pale yellow Urine Appearance Cloudy Urine pH 5 (4.5-8.0) Urine Specific [place] 1.010 (1.005-1.035) Urine Protein 3+ (NEGATIVE) H Urine Glucose (UA) Negative (NEGATIVE) Urine Ketones 1+ (NEGATIVE) H Urine Occult Blood 4+ (NEGATIVE) H Urine Nitrite Positive (NEGATIVE) H Urine Bilirubin Negative (NEGATIVE) Urine Urobilinogen Normal MG/DL (0.0-1.0) Urine Leukocyte Esterase 3+ (NEGATIVE) H Urine RBC 10-15 /HPF (0 - 2) H Urine WBC 30-40 /HPF (0 - 2) H Urine Squamous Epithelial Cells Few /LPF (NONE/OCC) Urine Bacteria Many /HPF (NONE) H Sodium Level 142 MMOL/L (136-145) 143 MMOL/L (136-145) Potassium Level 3.4 MMOL/L (3.5-5.1) L 3.2 MMOL/L (3.5-5.1) L Chloride Level 105 MMOL/L (98-107) 107 MMOL/L (98-107) Carbon Dioxide Level 28 MMOL/L (21-32) 23 MMOL/L (21-32) Anion Gap 9 mmol/L (5-15) 13 mmol/L (5-15) Blood Urea Nitrogen 27 mg/dL (7-18) H 25 mg/dL (7-18) H Creatinine 1.3 MG/DL (0.55-1.30) 1.3 MG/DL (0.55-1.30) Estimat Glomerular Filtration Rate mL/min (>60) mL/min (>60) Glucose Level 166 MG/DL (74-106) H 152 MG/DL (74-106) H Lactic Acid Level 1.60 mmol/L (0.4-2.0) Calcium Level 9.3 MG/DL (8.5-10.1) 8.8 MG/DL (8.5-10.1) Total Bilirubin 0.6 MG/DL (0.2-1.0) 0.8 MG/DL (0.2-1.0) Aspartate Amino Transf (AST/SGOT) 71 U/L (15-37) H 61 U/L (15-37) H Alanine Aminotransferase (ALT/SGPT) 63 U/L (12-78) 58 U/L (12-78) Alkaline Phosphatase 150 U/L (46-116) H 135 U/L (46-116) H Total Creatine Kinase 116 U/L (26-308) Troponin I 0.618 ng/mL (0.000-0.056) 0.474 ng/mL (0.000-0.056) Pro-B-Type Natriuretic Peptide 4396 pg/mL (0-125) H Total Protein 7.9 G/DL (6.4-8.2) 7.4 G/DL (6.4-8.2) Albumin 3.5 G/DL (3.4-5.0) 3.1 G/DL (3.4-5.0) L Globulin 4.4 g/dL 4.3 g/dL Albumin/Globulin Ratio 0.8 (1.0-2.7) L 0.7 (1.0-2.7) L Current Medications Medications (Trade) Dose Ordered Sig/Kelly Route PRN Reason Start Time Stop Time Status Last Admin Dose Admin Acetaminophen (Tylenol) 650 mg Q6H PRN ORAL Mild Pain/Temp > 100.5 09/01/17 02:15 10/01/17 02:14 Acetaminophen/ Hydrocodone Bitart ([place] 5/325) 1 tab Q8H PRN ORAL For Pain 09/01/17 02:15 09/08/17 02:14 09/01/17 09:00 Albuterol/ Ipratropium (Albuterol/ Ipratropium) 3 ml Q6H PRN HHN Shortness of Breath 09/01/17 02:15 09/06/17 02:14 Amlodipine Besylate (Norvasc) 5 mg DAILY ORAL 09/01/17 09:00 10/01/17 08:59 09/01/17 09:01 Aspirin (ASA) 81 mg DAILY ORAL 09/01/17 09:00 10/01/17 08:59 09/01/17 09:01 Atorvastatin Calcium (Lipitor) 10 mg BEDTIME ORAL 09/01/17 21:00 10/01/17 20:59 Citalopram Hydrobromide (celeXA) 20 mg DAILY ORAL 09/01/17 09:00 10/01/17 08:59 09/01/17 09:00 Dextromethorphan/ Quinidine (Nuedexta Capsule) 1 cap BID ORAL 09/01/17 09:00 10/01/17 08:59 09/01/17 09:23 Famotidine (Pepcid) 20 mg BEDTIME ORAL 09/01/17 21:00 10/01/17 20:59 Heparin Sodium (Porcine) (Heparin 5000 units/ml) 5,000 units EVERY 12 HOURS SUBQ 09/01/17 09:00 10/01/17 08:59 09/01/17 09:03 Meloxicam (Mobic) 7.5 mg DAILY ORAL 09/01/17 09:00 10/01/17 08:59 09/01/17 09:01 Ondansetron HCl (Zofran) 4 mg Q8H PRN ORAL Nausea & Vomiting 09/01/17 02:15 10/01/17 02:14 Phenytoin (Dilantin) 300 mg BEDTIME ORAL 09/01/17 21:00 10/01/17 20:59 Piperacillin Sod/ Tazobactam Sod 3.375 gm/Dextrose 110 ml @ 27.5 mls/hr Q8HR@0400,1200,2000 IVPB 09/01/17 04:00 09/08/17 03:59 09/01/17 12:01 Quetiapine Fumarate (SEROquel) 12.5 mg EVERY 4 HOURS PRN ORAL anxiety 09/01/17 13:00 10/01/17 12:59 Rivastigmine Tartrate (Exelon) 1.5 mg TWICE A DAY ORAL 09/01/17 09:00 10/01/17 08:59 09/01/17 09:23 Topiramate (Topamax) 100 mg DAILY ORAL 09/02/17 09:00 10/02/17 08:59 Vancomycin HCl (Vanco rx to dose) 1 ea DAILY PRN MISC Per rx protocol 09/01/17 02:45 10/01/17 02:44 Vancomycin HCl 1 gm/Dextrose 275 ml @ 183.708 mls/hr Q24H IVPB 09/02/17 00:00 09/07/17 00:00 Maria G De León M.D. Sep 01, 2017 16:49
--- NOTE | 2017-09-01 16:56 | General Progress Note ---
Assessment/Plan Status: stable Assessment/Plan 1. Healthcare-associated pneumonia - cont vanco and zosyn. ID will follow the patient. 2. Altered mental status with mild encephalopathy. 3. Urinary tract infection - cont vanco and zosyn IV antibiotic. 4. Hypertension - cont norvasc 5 mg daily 5. Elevated troponin - cardiology consult done and elevated troponin 2nd to UTI and pneumonia most likely. 6. Slight elevation in liver function tests - Repeat LFT improved. 7. History of depression 8. Hyperlipidemia - cont home statin. 9. History of constipation - stable now. 10. Lymphedema. 11. slarred speech - CT of head ordered to eval for possible CVA. speech eval. Subjective Date patient seen: Sep 01, 2017 Time patient seen: 04:00 Constitutional: Reports: weakness HEENT: Reports: no symptoms Cardiovascular: Reports: no symptoms Respiratory: Reports: no symptoms Gastrointestinal/Abdominal: Reports: no symptoms Genitourinary: Reports: no symptoms Neurologic/Psychiatric: Reports: no symptoms Endocrine: Reports: no symptoms Hematologic/Lymphatic: Reports: no symptoms Allergies: Coded Allergies: No Known Allergies (Unverified , 08/09/13) Subjective She has slight slarred speech. no sob or chest pain. no fever or chills. no nausea or vomiting. Objective Last 24 Hour Vital Signs Date Time Temp Pulse Resp B/P (MAP) Pulse Ox O2 Delivery O2 Flow Rate FiO2 09/01/17 09:59 96.3 09/01/17 09:01 133/56 09/01/17 09:01 57 133/56 09/01/17 08:57 133/56 09/01/17 08:11 96.3 57 18 133/56 (81) 95 96.3 09/01/17 04:20 109 144/56 09/01/17 04:00 109 09/01/17 04:00 98.8 109 22 144/56 (85) 95 98.8 09/01/17 03:14 Room Air 09/01/17 02:44 99.1 64 22 147/62 (90) 96 99.1 09/01/17 00:50 99.1 60 18 129/83 100 Room Air 99.1 09/01/17 00:45 99.1 60 18 129/83 100 Room Air 99.1 09/01/17 00:30 99.1 62 18 155/52 99 Room Air 99.1 09/01/17 00:00 99.1 58 21 182/78 98 Room Air 99.1 08/31/17 23:51 182/78 08/31/17 23:00 99.1 65 18 173/95 99 Room Air 99.1 08/31/17 22:00 99.6 61 21 129/95 97 Room Air 99.6 08/31/17 21:00 100.2 62 18 155/109 96 Room Air 100.2 08/31/17 20:00 101.2 65 18 158/67 95 Room Air 101.2 08/31/17 19:37 102.4 66 18 172/67 93 Room Air 102.4 Intake and Output 08/31/17 09/01/17 19:00 07:00 Intake Total 1442.5 ml Output Total 400 ml Balance 1042.5 ml IV Total 1442.5 ml Output Urine Total 400 ml Laboratory Tests 08/31/17 20:46: White Blood Count 11.1H, Red Blood Count 3.81L, Hemoglobin 11.8L, Hematocrit 34.6L, Mean Corpuscular Volume 91, Mean Corpuscular Hemoglobin 31.0, Mean Corpuscular Hemoglobin Concent 34.1, Red Cell Distribution Width 12.1, Platelet Count 254, Mean Platelet Volume 5.7L, Neutrophils (%) (Auto) 80.9H, Lymphocytes (%) (Auto) 9.6L, Monocytes (%) (Auto) 9.0, Eosinophils (%) (Auto) 0.0, Basophils (%) (Auto) 0.5, Urine Color Pale yellow, Urine Appearance Cloudy, Urine pH 5, Urine Specific [place] 1.010, Urine Protein 3+H, Urine Glucose (UA) Negative, Urine Ketones 1+H, Urine Occult Blood 4+H, Urine Nitrite PositiveH, Urine Bilirubin Negative, Urine Urobilinogen Normal, Urine Leukocyte Esterase 3+ H, Urine RBC 10-15H, Urine WBC 30-40H, Urine Squamous Epithelial Cells Few, Urine Bacteria ManyH, Sodium Level 142, Potassium Level 3.4L, Chloride Level 105 , Carbon Dioxide Level 28, Anion Gap 9, Blood Urea Nitrogen 27H, Creatinine 1.3 , Estimat Glomerular Filtration Rate , Glucose Level 166H, Lactic Acid Level 1.60, Calcium Level 9.3, Total Bilirubin 0.6, Aspartate Amino Transf (AST/SGOT) 71H, Alanine Aminotransferase (ALT/SGPT) 63, Alkaline Phosphatase 150H, Total Creatine Kinase 116, Troponin I 0.618H, Pro-B-Type Natriuretic Peptide 4396H, Total Protein 7.9, Albumin 3.5, Globulin 4.4, Albumin/Globulin Ratio 0.8L 09/01/17 07:50: White Blood Count 13.0H, Red Blood Count 4.02L, Hemoglobin 12.0, Hematocrit 36.8L, Mean Corpuscular Volume 91, Mean Corpuscular Hemoglobin 29.9, Mean Corpuscular Hemoglobin Concent 32.7, Red Cell Distribution Width 11.8, Platelet Count 251, Mean Platelet Volume 6.4L, Neutrophils (%) (Auto) 76.1H, Lymphocytes (%) (Auto) 12.0L, Monocytes (%) (Auto) 11.5H, Eosinophils (%) (Auto) 0.1, Basophils (%) (Auto) 0.4, Sodium Level 143, Potassium Level 3.2L, Chloride Level 107, Carbon Dioxide Level 23, Anion Gap 13, Blood Urea Nitrogen 25H, Creatinine 1.3, Estimat Glomerular Filtration Rate , Glucose Level 152H, Calcium Level 8.8, Total Bilirubin 0.8, Aspartate Amino Transf (AST/SGOT) 61H, Alanine Aminotransferase (ALT/SGPT) 58, Alkaline Phosphatase 135H, Troponin I 0.474H, Total Protein 7.4, Albumin 3.1L, Globulin 4.3, Albumin/Globulin Ratio 0.7L Height (Feet): 5 Height (Inches): 7.00 Weight (Pounds): 165 General Appearance: no apparent distress, lethargic EENT: normal ENT inspection Neck: non-tender, normal alignment, supple Cardiovascular: normal peripheral pulses, normal rate, regular rhythm Respiratory/Chest: normal breath sounds, rhonchi - right Abdomen: normal bowel sounds, non tender, soft Extremities: normal range of motion, non-tender Edema: no edema noted Arm (L), no edema noted Arm (R), no edema noted Leg (L), no edema noted Leg (R), no edema noted Pedal (L), no edema noted Pedal (R), no edema noted Generalized Neurologic: alert, responsive Skin: warm/dry Lymphatic: normal anterior cervical (L), normal anterior cervical (R), normal posterior cervical (L), normal posterior cervical (R), normal submandibular (L) , normal submandibular (R), normal supraclavicular (L), normal supraclavicular ( R), normal axillary (L), normal axillary (R), normal inguinal (L), normal inguinal (R), normal other Addy Riggs MD Sep 01, 2017 16:56
[2017-09-01] MEDS ORDERED: NS 275ml ONE (16:58)
[2017-09-01] MEDS: Phenytoin 100mg cap ORAL SCH (21:00)
--- NOTE | 2017-09-01 22:45 | Consultation ---
DATE OF CONSULTATION: 09/01/2017 INFECTIOUS DISEASE CONSULTATION CONSULTING PHYSICIAN: Maria G De León M.D. REQUESTING PHYSICIAN: Addy Riggs M.D. REASON FOR CONSULTATION: Healthcare-acquired pneumonia, UTI, and sepsis with fever. Recommendation for antibiotics treatment. HISTORY OF PRESENT ILLNESS: The patient is an 86-year-old female with past medical history of hypertension, depression, GERD, osteoarthritis, hyperlipidemia, incontinence, brain hemorrhage, status post craniotomy as per the daughter, who was brought in from assisted living for altered mental status with fever. The patient has not been eating well over at the facility. She had cough when she eats and she has been drowsy for the last couple of days. The patient visited the emergency room on the 9, and she was found to be dehydrated, so she received IV fluid and she was sent back to the assisted living, but she spiked fever up to 101 even though she was taking Levaquin to cover for possible pneumonia and bronchitis, but it did not help with her fever, so she was sent back to the emergency room for evaluation again. She had a chest x-ray, which showed bilateral interstitial infiltration suspicious for pneumonia. Urinalysis showed evidence of urine infection, so she was started on vancomycin and Zosyn empiric coverage and Infectious Disease consultation was requested for further evaluation and management. As of note, the patient is altered and cannot provide any history. History was mainly obtained from the daughter at the bedside and the medical record. REVIEW OF SYSTEMS: Unable to obtain. The patient is altered. PAST MEDICAL HISTORY: Significant for hypertension, depression, constipation, GERD, osteoarthritis, hyperlipidemia, incontinence, memory loss, brain hemorrhage, status post craniotomy. PAST SURGICAL HISTORY: She had craniotomy for intracranial hemorrhage in the past. FAMILY HISTORY: Unable to obtain. SOCIAL HISTORY: The patient lives in the assisted living. No recent drugs, tobacco, or alcohol. ALLERGIES: Possible allergy to lisinopril. MEDICATIONS: She is on vancomycin and Zosyn. For the rest of her medications, please refer to [facility]. LABORATORY AND DIAGNOSTIC DATA: Labs showed white count of 13,000, hemoglobin of 12, platelet count of 251,000. BUN of 25, creatinine of 1.3. Urinalysis showed +3 leukocyte esterase, wbc of 30-40, and many bacteria in the urine. Microbiology, blood culture and urine culture pending. Imaging, chest x-ray showed congestive heart failure, interstitial edema, right pleural effusion suspected. Echocardiogram showed EF of 55% to 60%, no evidence of left ventricular hypertrophy, no evidence of pericardial effusion. PHYSICAL EXAMINATION: VITAL SIGNS: Temperature 99.2, pulse 57, respiration 18, blood pressure 133/57, saturation 95% on room air. GENERAL: An elderly female, up in bed, alert, Farsi speaker, responded to verbal command, but confused, not coherent. HEENT: Normocephalic and atraumatic. Mild facial droop to the right side, unclear whether it is chronic or acute. Pupils reactive to light. Unable to assess oral mucosa. The patient does not follow command well. NECK: Supple. No lymphadenopathy. CARDIOVASCULAR: Regular rate and rhythm. No murmur or gallop. LUNGS: She had expiratory wheezing at the bases with diminished breathing sounds. ABDOMEN: Soft, obese, nontender, and nondistended. Normal bowel sounds. No hepatosplenomegaly or ascites. EXTREMITIES: She has chronic lymphedema on both lower extremities. Unable to palpate a pulse. SKIN: No rash. No hives. ASSESSMENT AND RECOMMENDATION: 1. Healthcare-acquired pneumonia with possible aspiration. Continue vancomycin and Zosyn empiric coverage for now. We will send sputum culture, monitor chest x-ray, repeat one in the morning. Recommend speech evaluation. 2. UTI. We will send urine culture if not done and continue Zosyn empiric coverage for now pending culture. 3. Sepsis due to the above. Continue wide-spectrum antibiotics, monitor culture and laboratories. 4. Fever due to the above, improving. Continue wide-spectrum antibiotics and Tylenol as needed. 5. Altered mental status, suspect metabolic, possibly due to sepsis. Continue neuro-check. Recommend CT of the head noncontrast to rule out intracranial hemorrhage. Thank you for the consult. Plan of care was discussed with the daughter and the primary physician at the time the patient was seen. Maria G De León M.D. DR: Buddy JOB#: [id number] CC:
[2017-09-02] VITALS: BP 150/58
[2017-09-02] MEDS ORDERED: Vancomycin 1gm/D5W 275ml IVPB SCH ×2
[2017-09-02 04:00] VITALS: BP 143/84
[2017-09-02] MEDS: Piperacillin/Tazobactam 3.375 GM in D5W 110 ML IVPB SCH ×3 (05:33→20:33)
[2017-09-02 07:25] LABS: ANION GAP 11 mmol/L (5-15); BLOOD UREA NITROGEN 24 mg/dL (7-18); CALCIUM 8.7 MG/DL (8.5-10.1); CARBON DIOXIDE 25 MMOL/L (21-32); CHLORIDE 107 MMOL/L (98-107); CREATININE 1.4 MG/DL (0.55-1.30); POTASSIUM 3.3 MMOL/L (3.5-5.1); SODIUM 143 MMOL/L (136-145)
[2017-09-02 07:26] LABS: BASOPHILS % (AUTO) 0.5 % (0.0-2.0); HEMATOCRIT 36.9 % (37.0-47.0); HEMOGLOBIN 12.3 G/DL (12.0-16.0); MEAN CORPUSCULAR VOLUME 92 FL (80-99); MONOCYTES % (AUTO) 9.8 % (1.0-10.0); NEUTROPHILS % (AUTO) 77.6 % (45.0-75.0); PLATELET COUNT 238 K/UL (150-450); RED BLOOD COUNT 4.04 M/UL (4.20-5.40); RED CELL DISTRIBUTION WIDTH 12.1 % (11.6-14.8); WHITE BLOOD COUNT 11.9 K/UL (4.8-10.8)
[2017-09-02 08:00] VITALS: BP 152/64
--- NOTE | 2017-09-02 09:01 | General Progress Note ---
Assessment/Plan Status: stable Assessment/Plan 1. Healthcare-associated pneumonia - cont vanco and zosyn. ID following the patient. 2. Altered mental status with mild metabolic encephalopathy - improving. 3. Urinary tract infection - cont vanco and zosyn IV antibiotic. follow cultures. 4. Hypertension - cont norvasc 5 mg daily 5. Elevated troponin - cardiology consult done and elevated troponin 2nd to UTI and pneumonia most likely. 6. Slight elevation in liver function tests - Repeat LFT improved. 7. History of depression 8. Hyperlipidemia - cont home statin. 9. History of constipation - stable now. 10. Lymphedema. 11. slarred speech - improved. CT of head result pending to r/o CVA. speech eval. 12. Generalized weakness - P.T. and O.T. eval and txt done. 13. possible sepsis - cont IV abx for now. follow CX. Subjective Date patient seen: Sep 02, 2017 Time patient seen: 08:45 Constitutional: Reports: weakness HEENT: Reports: no symptoms Cardiovascular: Reports: no symptoms Respiratory: Reports: no symptoms Gastrointestinal/Abdominal: Reports: no symptoms Genitourinary: Reports: no symptoms Neurologic/Psychiatric: Reports: no symptoms Endocrine: Reports: no symptoms Hematologic/Lymphatic: Reports: no symptoms Allergies: Coded Allergies: No Known Allergies (Unverified , 08/09/13) Subjective She is better today. no sob or chest pain. low grade fever. no chills. no nausea or vomiting. Objective Last 24 Hour Vital Signs Date Time Temp Pulse Resp B/P (MAP) Pulse Ox O2 Delivery O2 Flow Rate FiO2 09/02/17 04:00 97.6 64 22 143/84 (103) 92 97.6 09/02/17 04:00 50 09/02/17 00:00 99.5 62 28 150/58 (88) 93 99.5 09/01/17 21:02 61 18 Room Air 09/01/17 21:00 Room Air 09/01/17 20:00 98.8 70 30 145/60 (88) 93 98.8 09/01/17 20:00 69 09/01/17 16:00 99.2 57 18 133/57 (82) 95 99.2 09/01/17 16:00 56 09/01/17 12:00 49 09/01/17 12:00 96.7 54 18 113/56 (75) 95 96.7 09/01/17 09:59 96.3 09/01/17 09:01 133/56 09/01/17 09:01 57 133/56 09/01/17 09:00 Room Air 09/01/17 08:57 133/56 Intake and Output 09/01/17 09/02/17 19:00 07:00 Intake Total 230 ml 385.0 ml Output Total 100 ml 600 ml Balance 130 ml -215.0 ml Intake Oral 120 ml IV Total 110 ml 385.0 ml Output Urine Total 100 ml 600 ml Laboratory Tests 09/02/17 05:25: White Blood Count 11.9H, Red Blood Count 4.04L, Hemoglobin 12.3, Hematocrit 36.9L, Mean Corpuscular Volume 92, Mean Corpuscular Hemoglobin 30.3, Mean Corpuscular Hemoglobin Concent 33.2, Red Cell Distribution Width 12.1, Platelet Count 238, Mean Platelet Volume 6.2L, Neutrophils (%) (Auto) 77.6H, Lymphocytes (%) (Auto) 12.0L, Monocytes (%) (Auto) 9.8, Eosinophils (%) (Auto) 0.0, Basophils (%) (Auto) 0.5, Sodium Level 143, Potassium Level 3.3L, Chloride Level 107, Carbon Dioxide Level 25, Anion Gap 11, Blood Urea Nitrogen 24H, Creatinine 1.4H, Estimat Glomerular Filtration Rate , Glucose Level 130H, Calcium Level 8.7 Height (Feet): 5 Height (Inches): 7.00 Weight (Pounds): 165 General Appearance: no apparent distress, alert Neck: non-tender, supple Cardiovascular: normal peripheral pulses, normal rate, regular rhythm Respiratory/Chest: chest wall non-tender, lungs clear, normal breath sounds Abdomen: normal bowel sounds, non tender, soft Extremities: normal range of motion, non-tender Edema: no edema noted Arm (L), no edema noted Arm (R), no edema noted Leg (L), no edema noted Leg (R), no edema noted Pedal (L), no edema noted Pedal (R), no edema noted Generalized Neurologic: alert, responsive Skin: warm/dry Lymphatic: normal anterior cervical (L), normal anterior cervical (R), normal posterior cervical (L), normal posterior cervical (R), normal submandibular (L) , normal submandibular (R), normal supraclavicular (L), normal supraclavicular ( R), normal axillary (L), normal axillary (R), normal inguinal (L), normal inguinal (R), normal other Addy Riggs MD Sep 02, 2017 09:01
[2017-09-02] MEDS: Topiramate 100mg tab ORAL SCH (09:22)
[2017-09-02] MEDS: Nuedexta Capsule 20/10mg ORAL SCH ×2 (09:22→17:31)
[2017-09-02] MEDS: Exelon 1.5mg cap ORAL SCH ×2 (09:22→17:31)
[2017-09-02] MEDS: Aspirin Baby 81mg ORAL SCH (09:22)
[2017-09-02] MEDS: Citalopram Hydrobromide 10mg Tab ORAL SCH (09:22)
[2017-09-02] MEDS: Heparin 5000 units/ml inj SUBQ SCH ×2 (09:27→20:33)
--- NOTE | 2017-09-02 10:21 | Diagnostic Imaging Report ---
Indication: Altered mental status Technique: Contiguous 5 mm thick transaxial imaging of the head obtained in a Siemens Sensation [address] scanner. Soft tissue and bone windows generated. Automatic Exposure Control was utilized. Total Dose length Product (DLP): 1418.[address] Dose Index Volume (CTDIvol): 70.38 mGy Comparison: none Findings: There is moderate prominence of the ventricles, basal cisterns, and cerebral sulci consistent with atrophy. Moderate, nonspecific, white matter hypoattenuation is noted throughout the brain consistent with chronic small vessel disease. There is no midline shift, edema, acute hemorrhage, mass effect, or abnormal extra-axial fluid collections. Right craniotomy is noted. There is opacification of the right mastoid air cells. Impression: No acute intracranial bleed, mass effect or edema. Moderate atrophy of the brain. Right temporal craniotomy Evidence of chronic small vessel disease involving white matter tracts. Right mastoiditis The CT scanner at [facility] is accredited by the [employer] and the scans are performed using dose optimization techniques as appropriate to a performed exam including Automatic Exposure control.
--- NOTE | 2017-09-02 10:26 | Diagnostic Imaging Report ---
Indication: Altered mental status Technique: Contiguous 5 mm thick transaxial imaging of the head obtained in a Siemens Sensation [address] scanner. Soft tissue and bone windows generated. Automatic Exposure Control was utilized. Total Dose length Product (DLP): [address] Dose Index Volume (CTDIvol): 70.38 x 3, 0.15 x 2 mGy Comparison: none Findings: The study is incomplete as portions of the brain are not imaged, despite multiple repeats. There is moderate prominence of the ventricles, basal cisterns, and cerebral sulci consistent with atrophy. Moderate, nonspecific, white matter hypoattenuation is noted throughout the brain consistent with chronic small vessel disease. Within the visualized part of the brain, there is no midline shift, edema, acute hemorrhage, mass effect, or abnormal extra-axial fluid collections. Bones and extra osseous soft tissues are unremarkable. Impression: Incomplete examination as discussed above. [facility] has communicated the preliminary results to the Emergency Department. Their findings are largely concordant with this report. The CT scanner at [facility] is accredited by the [employer] and the scans are performed using dose optimization techniques as appropriate to a performed exam including Automatic Exposure control.
[2017-09-02 12:00] VITALS: BP 155/62
--- NOTE | 2017-09-02 12:01 | Diagnostic Imaging Report ---
Indication: Cough Comparison: 08/31/2017 A single view chest radiograph was obtained. Findings: Interstitial edema again demonstrated with cardiomegaly. Right pleural effusion suspected. IMPRESSION: No change. Suspected CHF. Suspect a right pleural effusion
--- NOTE | 2017-09-02 15:44 | Infectious Diseases Prog Note ---
Assessment/Plan Problems: (1) HCAP (healthcare-associated pneumonia) Assessment & Plan: continue zosyn empiric coverage for now, not producing any sputum (2) UTI (urinary tract infection) Assessment & Plan: with gram negative rods , continue zosyn empirically pending culture (3) Altered mental status Assessment & Plan: suspect metabolic and due to the above, continue neuro check (4) Fever Assessment & Plan: due to the above, improving, continue wide spectrum antibiotics and Tylenol (5) Sepsis Assessment & Plan: with gram negative rods, source most likely UTI , continue zosyn empirically pending cultures Subjective ROS Limited/Unobtainable: Yes Allergies: Coded Allergies: No Known Allergies (Unverified , 08/09/13) Subjective she was in deep sleep after she received seroquel this noon, was agitated earlier . no fever or chills Objective Vital Signs Last 24 Hour Vital Signs Date Time Temp Pulse Resp B/P (MAP) Pulse Ox O2 Delivery O2 Flow Rate FiO2 09/02/17 12:00 52 09/02/17 12:00 98.0 59 20 155/62 (93) 95 98.0 09/02/17 09:25 58 166/64 09/02/17 09:00 Room Air 09/02/17 08:00 54 09/02/17 08:00 99.5 58 18 152/64 (93) 92 99.5 09/02/17 04:00 97.6 64 22 143/84 (103) 92 97.6 09/02/17 04:00 50 09/02/17 00:00 99.5 62 28 150/58 (88) 93 99.5 09/01/17 21:02 61 18 Room Air 09/01/17 21:00 Room Air 09/01/17 20:00 98.8 70 30 145/60 (88) 93 98.8 09/01/17 20:00 69 09/01/17 16:00 99.2 57 18 133/57 (82) 95 99.2 09/01/17 16:00 56 Height (Feet): 5 Height (Inches): 7.00 Weight (Pounds): 165 General Appearance: WD/WN, no acute distress HEENT: normocephalic, atraumatic, anicteric, mucous membranes moist Respiratory/Chest: chest wall non-tender, no respiratory distress, no accessory muscle use, decreased breath sounds, crackles/rales Cardiovascular: normal peripheral pulses, normal rate, regular rhythm, no gallop/murmur, no JVD Abdomen: normal bowel sounds, soft, non tender, no organomegaly, non distended , no mass, no scars Extremities: no cyanosis, no clubbing Skin: no rash, no lesions, no ulcers Neurologic/Psychiatric: unresponsiveness Lymphatic: no neck adenopathy, no groin adenopathy Microbiology Date/Time Source Procedure Growth Status 08/31/17 20:40 Blood Blood Culture - Preliminary Resulted 08/31/17 20:30 Blood Blood Culture - Preliminary NO GROWTH AFTER 24 HOURS Resulted 08/31/17 20:46 Urine,Clean Catch Urine Culture - Preliminary Gram Negative Bacillus 1 Resulted Laboratory Tests Test 09/02/17 05:25 White Blood Count 11.9 K/UL (4.8-10.8) H Red Blood Count 4.04 M/UL (4.20-5.40) L Hemoglobin 12.3 G/DL (12.0-16.0) Hematocrit 36.9 % (37.0-47.0) L Mean Corpuscular Volume 92 FL (80-99) Mean Corpuscular Hemoglobin 30.3 PG (27.0-31.0) Mean Corpuscular Hemoglobin Concent 33.2 G/DL (32.0-36.0) Red Cell Distribution Width 12.1 % (11.6-14.8) Platelet Count 238 K/UL (150-450) Mean Platelet Volume 6.2 FL (6.5-10.1) L Neutrophils (%) (Auto) 77.6 % (45.0-75.0) H Lymphocytes (%) (Auto) 12.0 % (20.0-45.0) L Monocytes (%) (Auto) 9.8 % (1.0-10.0) Eosinophils (%) (Auto) 0.0 % (0.0-3.0) Basophils (%) (Auto) 0.5 % (0.0-2.0) Sodium Level 143 MMOL/L (136-145) Potassium Level 3.3 MMOL/L (3.5-5.1) L Chloride Level 107 MMOL/L (98-107) Carbon Dioxide Level 25 MMOL/L (21-32) Anion Gap 11 mmol/L (5-15) Blood Urea Nitrogen 24 mg/dL (7-18) H Creatinine 1.4 MG/DL (0.55-1.30) H Estimat Glomerular Filtration Rate mL/min (>60) Glucose Level 130 MG/DL (74-106) H Calcium Level 8.7 MG/DL (8.5-10.1) Current Medications Medications (Trade) Dose Ordered Sig/Kelly Route PRN Reason Start Time Stop Time Status Last Admin Dose Admin Acetaminophen (Tylenol) 650 mg Q6H PRN ORAL Mild Pain/Temp > 100.5 09/01/17 02:15 10/01/17 02:14 Acetaminophen/ Hydrocodone Bitart (Zenia 5/325) 1 tab Q8H PRN ORAL For Pain 09/01/17 02:15 09/08/17 02:14 09/01/17 09:00 Albuterol/ Ipratropium (Albuterol/ Ipratropium) 3 ml Q6H PRN HHN Shortness of Breath 09/01/17 02:15 09/06/17 02:14 Amlodipine Besylate (Norvasc) 5 mg DAILY ORAL 09/01/17 09:00 10/01/17 08:59 09/02/17 09:25 Aspirin (ASA) 81 mg DAILY ORAL 09/01/17 09:00 10/01/17 08:59 09/02/17 09:22 Atorvastatin Calcium (Lipitor) 10 mg BEDTIME ORAL 09/01/17 21:00 10/01/17 20:59 Citalopram Hydrobromide (celeXA) 20 mg DAILY ORAL 09/01/17 09:00 10/01/17 08:59 09/02/17 09:22 Dextromethorphan/ Quinidine (Nuedexta Capsule) 1 cap BID ORAL 09/01/17 09:00 10/01/17 08:59 09/02/17 09:22 Famotidine (Pepcid) 20 mg BEDTIME ORAL 09/01/17 21:00 10/01/17 20:59 Heparin Sodium (Porcine) (Heparin 5000 units/ml) 5,000 units EVERY 12 HOURS SUBQ 09/01/17 09:00 10/01/17 08:59 09/02/17 09:27 Meloxicam (Mobic) 7.5 mg DAILY ORAL 09/01/17 09:00 10/01/17 08:59 09/02/17 09:22 Ondansetron HCl (Zofran) 4 mg Q8H PRN ORAL Nausea & Vomiting 09/01/17 02:15 10/01/17 02:14 Phenytoin (Dilantin) 300 mg BEDTIME ORAL 09/01/17 21:00 10/01/17 20:59 Piperacillin Sod/ Tazobactam Sod 3.375 gm/Dextrose 110 ml @ 27.5 mls/hr Q8HR@0400,1200,2000 IVPB 09/01/17 04:00 09/08/17 03:59 09/02/17 11:34 Quetiapine Fumarate (SEROquel) 12.5 mg EVERY 4 HOURS PRN ORAL anxiety 09/01/17 13:00 10/01/17 12:59 09/02/17 11:34 Rivastigmine Tartrate (Exelon) 1.5 mg TWICE A DAY ORAL 09/01/17 09:00 10/01/17 08:59 09/02/17 09:22 Sodium Chloride 1,000 ml @ 60 mls/hr [id number] ONCE IV 09/02/17 14:15 09/03/17 06:54 09/02/17 14:37 Topiramate (Topamax) 100 mg DAILY ORAL 09/02/17 09:00 10/02/17 08:59 09/02/17 09:22 Maria G De León M.D. Sep 02, 2017 15:44
[2017-09-02 16:00] VITALS: BP 156/108
--- NOTE | 2017-09-02 17:21 | Cardiology Progress Note ---
Assessment/Plan Status: stable Assessment/Plan 1. Healthcare-associated pneumonia. 2. Altered mental status with mild encephalopathy. 3. Urinary tract infection. 4. Hypertension. 5. Elevated troponin. 6. Slight elevation in liver function tests. 7. History of depression. 8. Hyperlipidemia. 9. History of constipation. 10. Lymphedema. Plan Serial troponin -> downtrending, likely from urosepsis/PNA No indication for cath due to advanced age If troponin rises and conservatively give heparin gtt x48 hours Aspirin statin Physical therapy Swallow evaluation IV abx for UTI IV fluid hydration Amlodipine and Hyzaar for hypertension Dispo planning Subjective Cardiovascular: Reports: no symptoms Respiratory: Reports: no symptoms Gastrointestinal/Abdominal: Reports: no symptoms Genitourinary: Reports: no symptoms Subjective No acute events, patient had swallow evaluation today, vitals stable Objective Last 24 Hour Vital Signs Date Time Temp Pulse Resp B/P (MAP) Pulse Ox O2 Delivery O2 Flow Rate FiO2 09/02/17 17:07 101 18 Room Air 21 09/02/17 16:00 98.1 101 18 156/108 (124) 95 98.1 09/02/17 12:00 52 09/02/17 12:00 98.0 59 20 155/62 (93) 95 98.0 09/02/17 09:25 58 166/64 09/02/17 09:00 Room Air 09/02/17 08:00 54 09/02/17 08:00 99.5 58 18 152/64 (93) 92 99.5 09/02/17 04:00 97.6 64 22 143/84 (103) 92 97.6 09/02/17 04:00 50 09/02/17 00:00 99.5 62 28 150/58 (88) 93 99.5 09/01/17 21:02 61 18 Room Air 09/01/17 21:00 Room Air 09/01/17 20:00 98.8 70 30 145/60 (88) 93 98.8 09/01/17 20:00 69 General Appearance: no apparent distress EENT: PERRL/EOMI Neck: non-tender Rhythm: NSR Cardiovascular: normal peripheral pulses Respiratory/Chest: chest wall non-tender Abdomen: normal bowel sounds Extremities: normal range of motion 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 Intake and Output 09/01/17 09/02/17 19:00 07:00 Intake Total 230 ml 385.0 ml Output Total 100 ml 600 ml Balance 130 ml -215.0 ml Intake Oral 120 ml IV Total 110 ml 385.0 ml Output Urine Total 100 ml 600 ml Laboratory Tests Test 09/02/17 05:25 White Blood Count 11.9 K/UL (4.8-10.8) H Red Blood Count 4.04 M/UL (4.20-5.40) L Hemoglobin 12.3 G/DL (12.0-16.0) Hematocrit 36.9 % (37.0-47.0) L Mean Corpuscular Volume 92 FL (80-99) Mean Corpuscular Hemoglobin 30.3 PG (27.0-31.0) Mean Corpuscular Hemoglobin Concent 33.2 G/DL (32.0-36.0) Red Cell Distribution Width 12.1 % (11.6-14.8) Platelet Count 238 K/UL (150-450) Mean Platelet Volume 6.2 FL (6.5-10.1) L Neutrophils (%) (Auto) 77.6 % (45.0-75.0) H Lymphocytes (%) (Auto) 12.0 % (20.0-45.0) L Monocytes (%) (Auto) 9.8 % (1.0-10.0) Eosinophils (%) (Auto) 0.0 % (0.0-3.0) Basophils (%) (Auto) 0.5 % (0.0-2.0) Sodium Level 143 MMOL/L (136-145) Potassium Level 3.3 MMOL/L (3.5-5.1) L Chloride Level 107 MMOL/L (98-107) Carbon Dioxide Level 25 MMOL/L (21-32) Anion Gap 11 mmol/L (5-15) Blood Urea Nitrogen 24 mg/dL (7-18) H Creatinine 1.4 MG/DL (0.55-1.30) H Estimat Glomerular Filtration Rate mL/min (>60) Glucose Level 130 MG/DL (74-106) H Calcium Level 8.7 MG/DL (8.5-10.1) Microbiology Date/Time Source Procedure Growth Status 08/31/17 20:40 Blood Blood Culture - Preliminary Resulted 08/31/17 20:30 Blood Blood Culture - Preliminary NO GROWTH AFTER 24 HOURS Resulted 08/31/17 20:46 Urine,Clean Catch Urine Culture - Preliminary Gram Negative Bacillus 1 Resulted Perez Partida M.D. Sep 02, 2017 17:21
[2017-09-02] MEDS: Phenytoin 100mg cap ORAL SCH ×2 (20:32→20:52)
[2017-09-03] VITALS: BP 139/62
[2017-09-03 04:00] VITALS: BP 142/80
[2017-09-03] MEDS: Piperacillin/Tazobactam 3.375 GM in D5W 110 ML IVPB SCH ×3 (04:35→21:25)
[2017-09-03 07:55] LABS: BASOPHILS % (AUTO) 0.5 % (0.0-2.0); EOSINOPHILS % (AUTO) 2.8 % (0.0-3.0); HEMATOCRIT 31.1 % (37.0-47.0); HEMOGLOBIN 10.2 G/DL (12.0-16.0); LYMPHOCYTES % (AUTO) 11.4 % (20.0-45.0); MEAN CORPUSCULAR VOLUME 91 FL (80-99); MONOCYTES % (AUTO) 11.2 % (1.0-10.0); NEUTROPHILS % (AUTO) 74.2 % (45.0-75.0); PLATELET COUNT 216 K/UL (150-450); RED BLOOD COUNT 3.41 M/UL (4.20-5.40); RED CELL DISTRIBUTION WIDTH 11.9 % (11.6-14.8)
[2017-09-03 08:00] VITALS: BP 145/78
[2017-09-03 08:26] LABS: ANION GAP 7 mmol/L (5-15); BLOOD UREA NITROGEN 21 mg/dL (7-18); CALCIUM 8.1 MG/DL (8.5-10.1); CARBON DIOXIDE 27 MMOL/L (21-32); CHLORIDE 111 MMOL/L (98-107); CREATININE 1.2 MG/DL (0.55-1.30); POTASSIUM 3.6 MMOL/L (3.5-5.1); SODIUM 145 MMOL/L (136-145)
--- NOTE | 2017-09-03 09:06 | General Progress Note ---
Assessment/Plan Status: stable Assessment/Plan 1. Healthcare-associated pneumonia - cont vanco and zosyn. ID following the patient. 2. Altered mental status with mild metabolic encephalopathy - improving. 3. Urinary tract infection - cont vanco and zosyn IV antibiotic. follow cultures. 4. Hypertension - cont norvasc 5 mg daily 5. Elevated troponin - cardiology consult done and elevated troponin 2nd to UTI and pneumonia most likely. 6. Slight elevation in liver function tests - Repeat LFT improved. 7. History of depression 8. Hyperlipidemia - cont home statin. 9. History of constipation - stable now. 10. Lymphedema. 11. slarred speech - improved. CT of head negative for CVA. speech eval done. asp precautions. 12. Generalized weakness - P.T. and O.T. eval and txt done. Pt needs long term. will plan for D/C 1-2 days to [facility] rehab. 13. Sepsis 2nd to UTI - cont IV abx. culture grow E Coli. Subjective Date patient seen: Sep 03, 2017 Time patient seen: 08:35 Constitutional: Reports: weakness HEENT: Reports: no symptoms Cardiovascular: Reports: no symptoms Respiratory: Reports: cough Gastrointestinal/Abdominal: Reports: no symptoms Genitourinary: Reports: no symptoms Neurologic/Psychiatric: Reports: no symptoms Endocrine: Reports: no symptoms Hematologic/Lymphatic: Reports: no symptoms Allergies: Coded Allergies: No Known Allergies (Unverified , 08/09/13) Subjective She is better today. no sob or chest pain. No fever or chills. no nausea or vomiting. Objective Last 24 Hour Vital Signs Date Time Temp Pulse Resp B/P (MAP) Pulse Ox O2 Delivery O2 Flow Rate FiO2 09/03/17 04:00 97.6 60 20 142/80 (100) 96 97.6 09/03/17 04:00 48 09/03/17 00:00 98.0 70 24 139/62 (87) 93 98.0 09/03/17 00:00 50 09/02/17 21:00 Room Air 09/02/17 20:00 52 09/02/17 17:07 101 18 Room Air 21 09/02/17 16:00 98.1 101 18 156/108 (124) 95 98.1 09/02/17 16:00 46 09/02/17 12:00 52 09/02/17 12:00 98.0 59 20 155/62 (93) 95 98.0 09/02/17 09:25 58 166/64 09/02/17 09:00 Room Air Intake and Output 09/02/17 09/03/17 19:00 07:00 Intake Total 320 ml Output Total 300 ml 300 ml Balance 20 ml -300 ml Intake Oral 140 ml IV Total 180 ml Output Urine Total 300 ml 300 ml Laboratory Tests 09/03/17 07:10: White Blood Count 7.0, Red Blood Count 3.41L, Hemoglobin 10.2L, Hematocrit 31.1L , Mean Corpuscular Volume 91, Mean Corpuscular Hemoglobin 30.0, Mean Corpuscular Hemoglobin Concent 32.8, Red Cell Distribution Width 11.9, Platelet Count 216, Mean Platelet Volume 6.1L, Neutrophils (%) (Auto) 74.2, Lymphocytes ( %) (Auto) 11.4L, Monocytes (%) (Auto) 11.2H, Eosinophils (%) (Auto) 2.8, Basophils (%) (Auto) 0.5, Sodium Level 145, Potassium Level 3.6, Chloride Level 111H, Carbon Dioxide Level 27, Anion Gap 7, Blood Urea Nitrogen 21H, Creatinine 1.2, Estimat Glomerular Filtration Rate , Glucose Level 113H, Calcium Level 8.1L Height (Feet): 5 Height (Inches): 7.00 Weight (Pounds): 165 General Appearance: no apparent distress Neck: non-tender, normal alignment, supple Cardiovascular: normal peripheral pulses, normal rate, regular rhythm Respiratory/Chest: chest wall non-tender, lungs clear, normal breath sounds, no respiratory distress Abdomen: normal bowel sounds, non tender, soft Extremities: normal range of motion, non-tender Edema: no edema noted Arm (L), no edema noted Arm (R), no edema noted Leg (L), no edema noted Leg (R), no edema noted Pedal (L), no edema noted Pedal (R), no edema noted Generalized Neurologic: responsive Skin: warm/dry Lymphatic: normal anterior cervical (L), normal anterior cervical (R), normal posterior cervical (L), normal posterior cervical (R), normal submandibular (L) , normal submandibular (R), normal supraclavicular (L), normal supraclavicular ( R), normal axillary (L), normal axillary (R), normal inguinal (L), normal inguinal (R), normal other Addy Riggs MD Sep 03, 2017 09:06
[2017-09-03] MEDS: Aspirin Baby 81mg ORAL SCH (09:50)
[2017-09-03] MEDS: Nuedexta Capsule 20/10mg ORAL SCH ×2 (09:50→17:09)
[2017-09-03] MEDS: Citalopram Hydrobromide 10mg Tab ORAL SCH (09:50)
[2017-09-03] MEDS: Topiramate 100mg tab ORAL SCH (09:51)
[2017-09-03] MEDS: Exelon 1.5mg cap ORAL SCH ×2 (09:51→17:09)
[2017-09-03] MEDS: Heparin 5000 units/ml inj SUBQ SCH ×2 (09:57→21:37)
--- NOTE | 2017-09-03 10:50 | General Progress Note ---
Assessment/Plan Status: stable, progressing Assessment/Plan Encephalopathy Agitation Dementia with behavioral dis -seroquel prn -provided ro - d/w staff Subjective Date patient seen: Sep 03, 2017 Neurologic/Psychiatric: Reports: anxiety, depressed, emotional problems Allergies: Coded Allergies: No Known Allergies (Unverified , 08/09/13) Subjective The pt is calmer and is confused Objective Last 24 Hour Vital Signs Date Time Temp Pulse Resp B/P (MAP) Pulse Ox O2 Delivery O2 Flow Rate FiO2 09/03/17 10:08 84 18 Room Air 21 09/03/17 09:54 Room Air 09/03/17 09:00 48 142/80 09/03/17 08:00 97.6 60 20 145/78 (100) 95 97.6 09/03/17 04:00 97.6 60 20 142/80 (100) 96 97.6 09/03/17 04:00 48 09/03/17 00:00 98.0 70 24 139/62 (87) 93 98.0 09/03/17 00:00 50 09/02/17 21:00 Room Air 09/02/17 20:00 52 09/02/17 17:07 101 18 Room Air 21 09/02/17 16:00 98.1 101 18 156/108 (124) 95 98.1 09/02/17 16:00 46 09/02/17 12:00 52 09/02/17 12:00 98.0 59 20 155/62 (93) 95 98.0 Intake and Output 09/02/17 09/03/17 19:00 07:00 Intake Total 320 ml Output Total 300 ml 300 ml Balance 20 ml -300 ml Intake Oral 140 ml IV Total 180 ml Output Urine Total 300 ml 300 ml Laboratory Tests 09/03/17 07:10: White Blood Count 7.0, Red Blood Count 3.41L, Hemoglobin 10.2L, Hematocrit 31.1L , Mean Corpuscular Volume 91, Mean Corpuscular Hemoglobin 30.0, Mean Corpuscular Hemoglobin Concent 32.8, Red Cell Distribution Width 11.9, Platelet Count 216, Mean Platelet Volume 6.1L, Neutrophils (%) (Auto) 74.2, Lymphocytes ( %) (Auto) 11.4L, Monocytes (%) (Auto) 11.2H, Eosinophils (%) (Auto) 2.8, Basophils (%) (Auto) 0.5, Sodium Level 145, Potassium Level 3.6, Chloride Level 111H, Carbon Dioxide Level 27, Anion Gap 7, Blood Urea Nitrogen 21H, Creatinine 1.2, Estimat Glomerular Filtration Rate , Glucose Level 113H, Calcium Level 8.1L Height (Feet): 5 Height (Inches): 7.00 Weight (Pounds): 165 General Appearance: no apparent distress, alert, confused, agitated Dayanna Luque MD Sep 03, 2017 10:50
[2017-09-03 12:00] VITALS: BP 147/59
--- NOTE | 2017-09-03 15:13 | Cardiology Progress Note ---
Assessment/Plan Assessment/Plan 1. Healthcare-associated pneumonia. 2. Altered mental status with mild encephalopathy. 3. Urinary tract infection. 4. Hypertension. 5. Elevated troponin. 6. Slight elevation in liver function tests. 7. History of depression. 8. Hyperlipidemia. 9. History of constipation. 10. Lymphedema. Plan Serial troponin -> downtrending, likely from urosepsis/PNA No indication for cath due to advanced age If troponin rises and conservatively give heparin gtt x48 hours Aspirin statin Physical therapy Swallow evaluation IV abx for UTI IV fluid hydration Amlodipine and Hyzaar for hypertension Dispo planning Subjective Cardiovascular: Reports: no symptoms Respiratory: Reports: no symptoms Gastrointestinal/Abdominal: Reports: no symptoms Genitourinary: Reports: no symptoms Subjective No acute events, vitals stable, no acute distress Objective Last 24 Hour Vital Signs Date Time Temp Pulse Resp B/P (MAP) Pulse Ox O2 Delivery O2 Flow Rate FiO2 09/03/17 12:00 97.6 55 20 147/59 (88) 95 97.6 09/03/17 11:21 50 09/03/17 10:08 84 18 Room Air 21 09/03/17 09:54 Room Air 09/03/17 09:00 48 142/80 09/03/17 08:00 97.6 60 20 145/78 (100) 95 97.6 09/03/17 08:00 47 09/03/17 04:00 97.6 60 20 142/80 (100) 96 97.6 09/03/17 04:00 48 09/03/17 00:00 98.0 70 24 139/62 (87) 93 98.0 09/03/17 00:00 50 09/02/17 21:00 Room Air 09/02/17 20:00 52 09/02/17 17:07 101 18 Room Air 21 09/02/17 16:00 98.1 101 18 156/108 (124) 95 98.1 09/02/17 16:00 46 General Appearance: no apparent distress EENT: PERRL/EOMI Neck: non-tender Rhythm: NSR Cardiovascular: normal peripheral pulses Respiratory/Chest: chest wall non-tender Abdomen: normal bowel sounds Extremities: normal range of motion 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 Intake and Output 09/02/17 09/03/17 19:00 07:00 Intake Total 320 ml Output Total 300 ml 300 ml Balance 20 ml -300 ml Intake Oral 140 ml IV Total 180 ml Output Urine Total 300 ml 300 ml Laboratory Tests Test 09/03/17 07:10 White Blood Count 7.0 K/UL (4.8-10.8) Red Blood Count 3.41 M/UL (4.20-5.40) L Hemoglobin 10.2 G/DL (12.0-16.0) L Hematocrit 31.1 % (37.0-47.0) L Mean Corpuscular Volume 91 FL (80-99) Mean Corpuscular Hemoglobin 30.0 PG (27.0-31.0) Mean Corpuscular Hemoglobin Concent 32.8 G/DL (32.0-36.0) Red Cell Distribution Width 11.9 % (11.6-14.8) Platelet Count 216 K/UL (150-450) Mean Platelet Volume 6.1 FL (6.5-10.1) L Neutrophils (%) (Auto) 74.2 % (45.0-75.0) Lymphocytes (%) (Auto) 11.4 % (20.0-45.0) L Monocytes (%) (Auto) 11.2 % (1.0-10.0) H Eosinophils (%) (Auto) 2.8 % (0.0-3.0) Basophils (%) (Auto) 0.5 % (0.0-2.0) Sodium Level 145 MMOL/L (136-145) Potassium Level 3.6 MMOL/L (3.5-5.1) Chloride Level 111 MMOL/L (98-107) H Carbon Dioxide Level 27 MMOL/L (21-32) Anion Gap 7 mmol/L (5-15) Blood Urea Nitrogen 21 mg/dL (7-18) H Creatinine 1.2 MG/DL (0.55-1.30) Estimat Glomerular Filtration Rate mL/min (>60) Glucose Level 113 MG/DL (74-106) H Calcium Level 8.1 MG/DL (8.5-10.1) L Microbiology Date/Time Source Procedure Growth Status 08/31/17 20:40 Blood Blood Culture - Preliminary Gram Negative Bacillus 1 Resulted 08/31/17 20:30 Blood Blood Culture - Preliminary NO GROWTH AFTER 48 HOURS Resulted 09/01/17 00:10 Nasal Nares MRSA Culture - Final NO METHICILLIN RESISTANT STAPH AUREUS... Complete 08/31/17 20:46 Urine,Clean Catch Urine Culture - Final Escherichia Coli Complete 09/01/17 00:10 Rectal Mucosa - Preliminary Resulted 09/01/17 00:10 Rectum VRE Culture - Final NO VANCOMYCIN RESISTANT ENTEROCOCCUS ... Complete Perez Partida M.D. Sep 03, 2017 15:13
[2017-09-03 16:00] VITALS: BP 150/51
--- NOTE | 2017-09-03 16:35 | Infectious Diseases Prog Note ---
Assessment/Plan Problems: (1) HCAP (healthcare-associated pneumonia) Assessment & Plan: continue zosyn empiric coverage for now, monitor CXR . (2) UTI (urinary tract infection) Assessment & Plan: with E coli already on zosyn empirically pending blood culture (3) Altered mental status Assessment & Plan: suspect metabolic and due to the above, improved, head CT was negative for bleeding , continue neuro check (4) Fever Assessment & Plan: due to the above, improving, continue wide spectrum antibiotics and Tylenol (5) Sepsis Assessment & Plan: with gram negative rods, source most likely UTI , continue zosyn empirically pending final culture result and identification Subjective Constitutional: Reports: no symptoms HEENT: Reports: no symptoms Respiratory: Reports: no symptoms Breasts: Reports: no symptoms Cardiovascular: Reports: no symptoms Gastrointestinal/Abdominal: Reports: no symptoms Genitourinary: Reports: no symptoms Neurologic: Reports: weakness Psychiatric: Reports: no symptoms Skin: Reports: no symptoms Endocrine: Reports: no symptoms Hematologic: Reports: no symptoms Musculoskeletal: Reports: no symptoms Allergies: Coded Allergies: No Known Allergies (Unverified , 08/09/13) Subjective she was more awake and responsive today , and follows commands well . no fever or chills Objective Vital Signs Last 24 Hour Vital Signs Date Time Temp Pulse Resp B/P (MAP) Pulse Ox O2 Delivery O2 Flow Rate FiO2 09/03/17 12:00 97.6 55 20 147/59 (88) 95 97.6 09/03/17 11:21 50 09/03/17 10:08 84 18 Room Air 21 09/03/17 09:54 Room Air 09/03/17 09:00 48 142/80 09/03/17 08:00 97.6 60 20 145/78 (100) 95 97.6 09/03/17 08:00 47 09/03/17 04:00 97.6 60 20 142/80 (100) 96 97.6 09/03/17 04:00 48 09/03/17 00:00 98.0 70 24 139/62 (87) 93 98.0 09/03/17 00:00 50 09/02/17 21:00 Room Air 09/02/17 20:00 52 09/02/17 17:07 101 18 Room Air 21 Height (Feet): 5 Height (Inches): 7.00 Weight (Pounds): 165 General Appearance: WD/WN, no acute distress HEENT: normocephalic, atraumatic, anicteric, mucous membranes moist, pharynx normal, supple, no JVD Respiratory/Chest: chest wall non-tender, no respiratory distress, no accessory muscle use, decreased breath sounds, crackles/rales Cardiovascular: normal peripheral pulses, normal rate, regular rhythm, no gallop/murmur, no JVD Abdomen: normal bowel sounds, soft, non tender, no organomegaly, non distended , no mass, no scars Extremities: no cyanosis, no clubbing Skin: no rash, no lesions Neurologic/Psychiatric: alert, responsive Lymphatic: no neck adenopathy, no groin adenopathy Microbiology Date/Time Source Procedure Growth Status 08/31/17 20:40 Blood Blood Culture - Preliminary Gram Negative Bacillus 1 Resulted 08/31/17 20:30 Blood Blood Culture - Preliminary NO GROWTH AFTER 48 HOURS Resulted 09/01/17 00:10 Nasal Nares MRSA Culture - Final NO METHICILLIN RESISTANT STAPH AUREUS... Complete 08/31/17 20:46 Urine,Clean Catch Urine Culture - Final Escherichia Coli Complete 09/01/17 00:10 Rectal Mucosa - Preliminary Resulted 09/01/17 00:10 Rectum VRE Culture - Final NO VANCOMYCIN RESISTANT ENTEROCOCCUS ... Complete Laboratory Tests Test 09/03/17 07:10 White Blood Count 7.0 K/UL (4.8-10.8) Red Blood Count 3.41 M/UL (4.20-5.40) L Hemoglobin 10.2 G/DL (12.0-16.0) L Hematocrit 31.1 % (37.0-47.0) L Mean Corpuscular Volume 91 FL (80-99) Mean Corpuscular Hemoglobin 30.0 PG (27.0-31.0) Mean Corpuscular Hemoglobin Concent 32.8 G/DL (32.0-36.0) Red Cell Distribution Width 11.9 % (11.6-14.8) Platelet Count 216 K/UL (150-450) Mean Platelet Volume 6.1 FL (6.5-10.1) L Neutrophils (%) (Auto) 74.2 % (45.0-75.0) Lymphocytes (%) (Auto) 11.4 % (20.0-45.0) L Monocytes (%) (Auto) 11.2 % (1.0-10.0) H Eosinophils (%) (Auto) 2.8 % (0.0-3.0) Basophils (%) (Auto) 0.5 % (0.0-2.0) Sodium Level 145 MMOL/L (136-145) Potassium Level 3.6 MMOL/L (3.5-5.1) Chloride Level 111 MMOL/L (98-107) H Carbon Dioxide Level 27 MMOL/L (21-32) Anion Gap 7 mmol/L (5-15) Blood Urea Nitrogen 21 mg/dL (7-18) H Creatinine 1.2 MG/DL (0.55-1.30) Estimat Glomerular Filtration Rate mL/min (>60) Glucose Level 113 MG/DL (74-106) H Calcium Level 8.1 MG/DL (8.5-10.1) L Current Medications Medications (Trade) Dose Ordered Sig/Kelly Route PRN Reason Start Time Stop Time Status Last Admin Dose Admin Acetaminophen (Tylenol) 650 mg Q6H PRN ORAL Mild Pain/Temp > 100.5 09/01/17 02:15 10/01/17 02:14 Acetaminophen/ Hydrocodone Bitart ([place] 5/325) 1 tab Q8H PRN ORAL For Pain 09/01/17 02:15 09/08/17 02:14 09/01/17 09:00 Albuterol/ Ipratropium (Albuterol/ Ipratropium) 3 ml Q6H PRN HHN Shortness of Breath 09/01/17 02:15 09/06/17 02:14 Amlodipine Besylate (Norvasc) 5 mg DAILY ORAL 09/01/17 09:00 10/01/17 08:59 09/03/17 09:00 Aspirin (ASA) 81 mg DAILY ORAL 09/01/17 09:00 10/01/17 08:59 09/03/17 09:50 Atorvastatin Calcium (Lipitor) 10 mg BEDTIME ORAL 09/01/17 21:00 10/01/17 20:59 Citalopram Hydrobromide (celeXA) 20 mg DAILY ORAL 09/01/17 09:00 10/01/17 08:59 09/03/17 09:50 Dextromethorphan/ Quinidine (Nuedexta Capsule) 1 cap BID ORAL 09/01/17 09:00 10/01/17 08:59 09/03/17 09:50 Famotidine (Pepcid) 20 mg BEDTIME ORAL 09/01/17 21:00 10/01/17 20:59 Heparin Sodium (Porcine) (Heparin 5000 units/ml) 5,000 units EVERY 12 HOURS SUBQ 09/01/17 09:00 10/01/17 08:59 09/03/17 09:57 Meloxicam (Mobic) 7.5 mg DAILY ORAL 09/01/17 09:00 10/01/17 08:59 09/03/17 09:50 Ondansetron HCl (Zofran) 4 mg Q8H PRN ORAL Nausea & Vomiting 09/01/17 02:15 10/01/17 02:14 Phenytoin (Dilantin) 300 mg BEDTIME ORAL 09/01/17 21:00 10/01/17 20:59 Piperacillin Sod/ Tazobactam Sod 3.375 gm/Dextrose 110 ml @ 27.5 mls/hr Q8HR@0400,1200,2000 IVPB 09/01/17 04:00 09/08/17 03:59 09/03/17 12:03 Quetiapine Fumarate (SEROquel) 12.5 mg EVERY 4 HOURS PRN ORAL anxiety 09/01/17 13:00 10/01/17 12:59 09/03/17 15:14 Rivastigmine Tartrate (Exelon) 1.5 mg TWICE A DAY ORAL 09/01/17 09:00 10/01/17 08:59 09/03/17 09:51 Topiramate (Topamax) 100 mg DAILY ORAL 09/02/17 09:00 10/02/17 08:59 09/03/17 09:51 Maria G De León M.D. Sep 03, 2017 16:35
[2017-09-03 20:00] VITALS: BP 189/60
[2017-09-03] MEDS: Phenytoin 100mg cap ORAL SCH (21:26)
[2017-09-04] VITALS: BP 176/63
[2017-09-04] MEDS: Piperacillin/Tazobactam 3.375 GM in D5W 110 ML IVPB SCH (03:03)
[2017-09-04 04:00] VITALS: BP 144/71
[2017-09-04] MEDS: Citalopram Hydrobromide 10mg Tab ORAL SCH (08:35)
[2017-09-04] MEDS: Aspirin Baby 81mg ORAL SCH (08:35)
[2017-09-04] MEDS: Exelon 1.5mg cap ORAL SCH ×2 (08:35→18:00)
[2017-09-04] MEDS: Topiramate 100mg tab ORAL SCH (08:45)
[2017-09-04] MEDS: Nuedexta Capsule 20/10mg ORAL SCH ×2 (08:45→18:00)
[2017-09-04 08:50] VITALS: BP 120/63
[2017-09-04] MEDS: Heparin 5000 units/ml inj SUBQ SCH ×2 (09:00→21:05)
--- NOTE | 2017-09-04 12:05 | General Progress Note ---
Assessment/Plan Status: stable Assessment/Plan 1. Healthcare-associated pneumonia - on vanco and zosyn. ID following the patient. 2. Altered mental status with mild metabolic encephalopathy - improved. 3. Urinary tract infection - on vanco and zosyn IV antibiotic. follow cultures. 4. Hypertension - cont norvasc 5 mg daily 5. Elevated troponin - cardiology consult done and elevated troponin 2nd to UTI and pneumonia most likely. 6. Slight elevation in liver function tests - Repeat LFT improved. 7. History of depression 8. Hyperlipidemia - cont home statin. 9. History of constipation - stable now. 10. Lymphedema. 11. slarred speech - improved. CT of head negative for CVA. speech eval done. asp precautions. 12. Generalized weakness - P.T. and O.T. eval and txt done. Pt needs detention. D/C to [facility] rehab tomorrow. 13. Sepsis 2nd to UTI - improved with abx. culture grow E Coli. repeat blood cx x 2 and CXR, cbc and bmp. re Subjective Date patient seen: Sep 04, 2017 Time patient seen: 11:45 Constitutional: Reports: weakness HEENT: Reports: no symptoms Cardiovascular: Reports: no symptoms Respiratory: Reports: no symptoms Gastrointestinal/Abdominal: Reports: no symptoms Genitourinary: Reports: no symptoms Neurologic/Psychiatric: Reports: no symptoms Endocrine: Reports: no symptoms Hematologic/Lymphatic: Reports: no symptoms Allergies: Coded Allergies: No Known Allergies (Unverified , 08/09/13) Subjective She is better today. no sob or chest pain. No fever or chills. no nausea or vomiting. ate 50 % of her foot this morning. Objective Last 24 Hour Vital Signs Date Time Temp Pulse Resp B/P (MAP) Pulse Ox O2 Delivery O2 Flow Rate FiO2 09/04/17 08:50 97.6 78 16 120/63 (82) 90 97.6 09/04/17 08:45 78 120/63 09/04/17 08:00 65 09/04/17 06:01 Room Air 09/04/17 04:00 71 09/04/17 04:00 97.8 65 20 144/71 (95) 96 97.8 09/04/17 00:00 64 09/04/17 00:00 97.9 63 20 176/63 (100) 93 97.9 09/03/17 20:00 99.1 63 20 189/60 (103) 94 99.1 09/03/17 19:30 80 18 Room Air 21 09/03/17 16:00 97.7 60 24 150/51 (84) 97 97.7 09/03/17 16:00 58 Intake and Output 09/03/17 09/04/17 19:00 07:00 Intake Total 160 ml Output Total 300 ml 1000 ml Balance -300 ml -840 ml Intake Oral 50 ml Other 110 ml Output Urine Total 300 ml 1000 ml # Bowel Movements 1 Height (Feet): 5 Height (Inches): 7.00 Weight (Pounds): 165 General Appearance: no apparent distress, alert EENT: TMs normal Neck: non-tender, normal alignment, supple Cardiovascular: normal rate, regular rhythm Respiratory/Chest: chest wall non-tender, lungs clear, normal breath sounds Abdomen: normal bowel sounds, non tender, soft Extremities: normal range of motion, non-tender Edema: no edema noted Arm (L), no edema noted Arm (R), no edema noted Leg (L), no edema noted Leg (R), no edema noted Pedal (L), no edema noted Pedal (R), no edema noted Generalized Neurologic: alert, responsive Skin: warm/dry Lymphatic: normal anterior cervical (L), normal anterior cervical (R), normal posterior cervical (L), normal posterior cervical (R), normal submandibular (L) , normal submandibular (R), normal supraclavicular (L), normal supraclavicular ( R), normal axillary (L), normal axillary (R), normal inguinal (L), normal inguinal (R), normal other Addy Riggs MD Sep 04, 2017 12:05
[2017-09-04 12:16] VITALS: BP 119/67
[2017-09-04] MEDS ORDERED: NS 275ml ONE (15:07)
--- NOTE | 2017-09-04 15:22 | Infectious Diseases Prog Note ---
Assessment/Plan Problems: (1) HCAP (healthcare-associated pneumonia) Assessment & Plan: will switch to meropenem to cover for sepsis and UTI too due to MDR E.coli , and stop zosyn empiric coverage, repeat CXR . (2) UTI (urinary tract infection) Assessment & Plan: with MDR E coli , on zosyn empirically will switch to meropenem to cover her sepsis too due to MDR E. coli (3) Altered mental status Assessment & Plan: suspect metabolic and due to the above, improved, head CT was negative for bleeding , continue neuro check (4) Fever Assessment & Plan: due to the above, improving, continue wide spectrum antibiotics and Tylenol (5) Sepsis Assessment & Plan: with MDR E.coli source most likely her UTI , will switch zosyn empirically to meropenem and treat for two weeks . will repeat blood culture today to confirm clearance Subjective Constitutional: Reports: no symptoms HEENT: Reports: no symptoms Respiratory: Reports: dry cough Breasts: Reports: no symptoms Cardiovascular: Reports: no symptoms Gastrointestinal/Abdominal: Reports: no symptoms Genitourinary: Reports: no symptoms Neurologic: Reports: weakness, confusion Psychiatric: Reports: no symptoms Skin: Reports: no symptoms Endocrine: Reports: no symptoms Hematologic: Reports: no symptoms Musculoskeletal: Reports: no symptoms Allergies: Coded Allergies: No Known Allergies (Unverified , 08/09/13) Subjective she was feeling better today, more awake and responsive follows commands well . no fever or chills Objective Vital Signs Last 24 Hour Vital Signs Date Time Temp Pulse Resp B/P (MAP) Pulse Ox O2 Delivery O2 Flow Rate FiO2 09/04/17 12:16 97.9 73 18 119/67 (84) 86 97.9 09/04/17 08:50 97.6 78 16 120/63 (82) 90 97.6 09/04/17 08:45 78 120/63 09/04/17 08:00 65 09/04/17 06:01 Room Air 09/04/17 04:00 71 09/04/17 04:00 97.8 65 20 144/71 (95) 96 97.8 09/04/17 00:00 64 09/04/17 00:00 97.9 63 20 176/63 (100) 93 97.9 09/03/17 20:00 99.1 63 20 189/60 (103) 94 99.1 09/03/17 19:30 80 18 Room Air 21 09/03/17 16:00 97.7 60 24 150/51 (84) 97 97.7 09/03/17 16:00 58 Height (Feet): 5 Height (Inches): 7.00 Weight (Pounds): 165 General Appearance: WD/WN, no acute distress HEENT: normocephalic, atraumatic, anicteric, mucous membranes moist Respiratory/Chest: chest wall non-tender, lungs clear, normal breath sounds, no respiratory distress, no accessory muscle use Cardiovascular: normal peripheral pulses, normal rate, regular rhythm, no gallop/murmur, no JVD Abdomen: normal bowel sounds, soft, non tender, no organomegaly, non distended , no mass, no scars Genitourinary: normal external genitalia Extremities: no cyanosis, no clubbing Skin: no rash, no lesions, no ulcers Neurologic/Psychiatric: alert, responsive Lymphatic: no neck adenopathy, no groin adenopathy Musculoskeletal: normal muscle bulk Current Medications Medications (Trade) Dose Ordered Sig/Kelly Route PRN Reason Start Time Stop Time Status Last Admin Dose Admin Acetaminophen (Tylenol) 650 mg Q6H PRN ORAL Mild Pain/Temp > 100.5 09/01/17 02:15 10/01/17 02:14 Acetaminophen/ Hydrocodone Bitart ([place] 5/325) 1 tab Q8H PRN ORAL For Pain 09/01/17 02:15 09/08/17 02:14 09/01/17 09:00 Albuterol/ Ipratropium (Albuterol/ Ipratropium) 3 ml Q6H PRN HHN Shortness of Breath 09/01/17 02:15 09/06/17 02:14 Amlodipine Besylate (Norvasc) 5 mg DAILY ORAL 09/01/17 09:00 10/01/17 08:59 09/04/17 08:45 Aspirin (ASA) 81 mg DAILY ORAL 09/01/17 09:00 10/01/17 08:59 09/04/17 08:35 Atorvastatin Calcium (Lipitor) 10 mg BEDTIME ORAL 09/01/17 21:00 10/01/17 20:59 09/03/17 21:25 Citalopram Hydrobromide (celeXA) 20 mg DAILY ORAL 09/01/17 09:00 10/01/17 08:59 09/04/17 08:35 Dextromethorphan/ Quinidine (Nuedexta Capsule) 1 cap BID ORAL 09/01/17 09:00 10/01/17 08:59 09/04/17 08:45 Famotidine (Pepcid) 20 mg BEDTIME ORAL 09/01/17 21:00 10/01/17 20:59 09/03/17 21:25 Heparin Sodium (Porcine) (Heparin 5000 units/ml) 5,000 units EVERY 12 HOURS SUBQ 09/01/17 09:00 10/01/17 08:59 09/03/17 21:37 Meloxicam (Mobic) 7.5 mg DAILY ORAL 09/01/17 09:00 10/01/17 08:59 09/04/17 08:36 Meropenem 1 gm/ Sodium Chloride 55 ml @ 110 mls/hr Q12HR@0300,1500 IVPB 09/04/17 15:00 09/09/17 14:59 Ondansetron HCl (Zofran) 4 mg Q8H PRN ORAL Nausea & Vomiting 09/01/17 02:15 10/01/17 02:14 09/04/17 08:35 Phenytoin (Dilantin) 300 mg BEDTIME ORAL 09/01/17 21:00 10/01/17 20:59 09/03/17 21:26 Quetiapine Fumarate (SEROquel) 12.5 mg EVERY 4 HOURS PRN ORAL anxiety 09/01/17 13:00 10/01/17 12:59 09/04/17 14:04 Rivastigmine Tartrate (Exelon) 1.5 mg TWICE A DAY ORAL 09/01/17 09:00 10/01/17 08:59 09/04/17 08:35 Topiramate (Topamax) 100 mg DAILY ORAL 09/02/17 09:00 10/02/17 08:59 09/04/17 08:45 Maria G De León M.D. Sep 04, 2017 15:22
[2017-09-04] MEDS: Meropenem 1 GM in NS 55 ML IVPB SCH (15:34)
--- NOTE | 2017-09-04 15:40 | Cardiology Progress Note ---
Assessment/Plan Status: doing well, stable, progressing Assessment/Plan 1. Healthcare-associated pneumonia. 2. Altered mental status with mild encephalopathy. 3. Urinary tract infection. 4. Hypertension. 5. Elevated troponin. 6. Slight elevation in liver function tests. 7. History of depression. 8. Hyperlipidemia. 9. History of constipation. 10. Lymphedema. Plan Serial troponin -> downtrending, likely from urosepsis/PNA No indication for cath due to advanced age If troponin rises and conservatively give heparin gtt x48 hours Aspirin statin Physical therapy Swallow evaluation IV abx for UTI IV fluid hydration Amlodipine and Hyzaar for hypertension Dispo planning Subjective Cardiovascular: Reports: no symptoms Respiratory: Reports: no symptoms Gastrointestinal/Abdominal: Reports: no symptoms Genitourinary: Reports: no symptoms Subjective No acute events, vitals stable, no acute distress, much better, conversant Objective Last 24 Hour Vital Signs Date Time Temp Pulse Resp B/P (MAP) Pulse Ox O2 Delivery O2 Flow Rate FiO2 09/04/17 12:16 97.9 73 18 119/67 (84) 86 97.9 09/04/17 08:50 97.6 78 16 120/63 (82) 90 97.6 09/04/17 08:45 78 120/63 09/04/17 08:00 65 09/04/17 06:01 Room Air 09/04/17 04:00 71 09/04/17 04:00 97.8 65 20 144/71 (95) 96 97.8 09/04/17 00:00 64 09/04/17 00:00 97.9 63 20 176/63 (100) 93 97.9 09/03/17 20:00 99.1 63 20 189/60 (103) 94 99.1 09/03/17 19:30 80 18 Room Air 21 09/03/17 16:00 97.7 60 24 150/51 (84) 97 97.7 09/03/17 16:00 58 General Appearance: no apparent distress EENT: PERRL/EOMI Neck: non-tender Rhythm: NSR Cardiovascular: normal peripheral pulses Respiratory/Chest: chest wall non-tender Abdomen: normal bowel sounds Extremities: normal range of motion 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 Sep 04, 2017 15:40
[2017-09-04 16:00] VITALS: BP 131/73
[2017-09-04 20:00] VITALS: BP 131/73
[2017-09-04] MEDS: Phenytoin 100mg cap ORAL SCH (21:03)
[2017-09-05] VITALS: BP 99/50
[2017-09-05 04:00] VITALS: BP 121/68
[2017-09-05] MEDS: Meropenem 1 GM in NS 55 ML IVPB SCH (05:34)
[2017-09-05 07:48] LABS: BASOPHILS % (AUTO) 0.5 % (0.0-2.0); EOSINOPHILS % (AUTO) 0.2 % (0.0-3.0); HEMATOCRIT 39.2 % (37.0-47.0); HEMOGLOBIN 12.9 G/DL (12.0-16.0); LYMPHOCYTES % (AUTO) 10.7 % (20.0-45.0); MEAN CORPUSCULAR VOLUME 92 FL (80-99); MONOCYTES % (AUTO) 8.7 % (1.0-10.0); NEUTROPHILS % (AUTO) 79.9 % (45.0-75.0); PLATELET COUNT 284 K/UL (150-450); RED BLOOD COUNT 4.27 M/UL (4.20-5.40); RED CELL DISTRIBUTION WIDTH 12.5 % (11.6-14.8); WHITE BLOOD COUNT 16.9 K/UL (4.8-10.8)
[2017-09-05 08:00] VITALS: BP 115/57
[2017-09-05 08:10] LABS: ANION GAP 16 mmol/L (5-15); BLOOD UREA NITROGEN 31 mg/dL (7-18); CARBON DIOXIDE 17 MMOL/L (21-32); CHLORIDE 107 MMOL/L (98-107); CREATININE 1.8 MG/DL (0.55-1.30); POTASSIUM 3.7 MMOL/L (3.5-5.1); SODIUM 140 MMOL/L (136-145)
[2017-09-05] MEDS: Citalopram Hydrobromide 10mg Tab ORAL SCH (09:12)
[2017-09-05] MEDS: Exelon 1.5mg cap ORAL SCH ×2 (09:12→17:30)
[2017-09-05] MEDS: Nuedexta Capsule 20/10mg ORAL SCH ×2 (09:12→17:31)
[2017-09-05] MEDS: Aspirin Baby 81mg ORAL SCH (09:12)
[2017-09-05] MEDS: Topiramate 100mg tab ORAL SCH (09:15)
[2017-09-05] MEDS: Heparin 5000 units/ml inj SUBQ SCH ×2 (09:17→21:57)
[2017-09-05] MEDS ORDERED: MEROPENEM1 GM IV (09:25)
[2017-09-05] MEDS ORDERED: MEROPENEM500 MG IV (09:25)
--- NOTE | 2017-09-05 10:39 | Diagnostic Imaging Report ---
History: COUGH Exam: XR CXR 1 VIEW Comparison: 09/02/2017 FINDINGS: Suggestion of mild increase in the patchy ill-defined perihilar and lower zone predominant opacities, correlate for possible worsening congestive heart failure. Again appearance of small right pleural effusion and partial collapse, atelectasis right lower lobe. The cardiac silhouette is enlarged. IMPRESSION: Suggestion of mild increase in the patchy ill-defined perihilar and lower zone predominant opacities, correlate for possible worsening congestive heart failure. Again appearance of small right pleural effusion and partial collapse, atelectasis right lower lobe. The cardiac silhouette is enlarged.
[2017-09-05 12:00] VITALS: BP 131/79
--- NOTE | 2017-09-05 13:18 | General Progress Note ---
Assessment/Plan Status: stable Assessment/Plan 1. Healthcare-associated pneumonia - on merapenem 1 gm IV q 12 hrs per ID. 2. Altered mental status with mild metabolic encephalopathy - improved. 3. Urinary tract infection - on Merapenem 1 gm IV q 12 hrs for sepsis and UTI. 4. Hypertension - cont norvasc 5 mg daily 5. Elevated troponin - cardiology following. Elevated troponin 2nd to UTI and pneumonia. 6. Slight elevation in liver function tests - Repeat LFT improved. 7. History of depression 8. Hyperlipidemia - cont home statin. 9. History of constipation - stable now. 10. Lymphedema. 11. slarred speech - improved. CT of head negative for CVA. speech eval done. asp precautions. 12. Generalized weakness - P.T. and O.T. eval and txt done. Pt needs intermediate. hold transfer to rehab until tomorrow. 13. Sepsis 2nd to UTI - on merapenem 1 gm IV q 12 hrs. culture grow E Coli. follow repeat blood cx. re Subjective Date patient seen: Sep 05, 2017 Time patient seen: 01:00 Constitutional: Reports: weakness HEENT: Reports: no symptoms Cardiovascular: Reports: no symptoms Respiratory: Reports: no symptoms Gastrointestinal/Abdominal: Reports: no symptoms Genitourinary: Reports: no symptoms Neurologic/Psychiatric: Reports: no symptoms Endocrine: Reports: no symptoms Hematologic/Lymphatic: Reports: no symptoms Allergies: Coded Allergies: No Known Allergies (Unverified , 08/09/13) Subjective afebrile. no sob or chest pain. Her WBC increased and became dehydrated b/c of poor po intake. no nausea or vomiting. Objective Last 24 Hour Vital Signs Date Time Temp Pulse Resp B/P (MAP) Pulse Ox O2 Delivery O2 Flow Rate FiO2 09/05/17 09:15 68 115/57 09/05/17 08:00 97.3 68 20 115/57 (76) 94 97.3 09/05/17 07:30 68 20 Room Air 21 09/05/17 04:00 98.0 18 121/68 (85) 90 98.0 09/05/17 00:00 97.7 20 99/50 (66) 92 97.7 09/05/17 00:00 68 09/04/17 22:15 73 20 Room Air 21 09/04/17 21:00 Room Air 09/04/17 20:00 97.6 67 24 131/73 (92) 92 97.6 09/04/17 20:00 72 09/04/17 17:49 78 24 Room Air 21 09/04/17 16:00 97.6 84 24 131/73 (92) 93 97.6 09/04/17 16:00 78 Intake and Output 09/04/17 09/05/17 19:00 07:00 Intake Total 50 ml Output Total 200 ml 250 ml Balance -200 ml -200 ml Intake Oral 50 ml Output Urine Total 200 ml 250 ml # Bowel Movements 2 Laboratory Tests 09/05/17 07:07: White Blood Count 16.9H, Red Blood Count 4.27, Hemoglobin 12.9, Hematocrit 39.2 , Mean Corpuscular Volume 92, Mean Corpuscular Hemoglobin 30.3, Mean Corpuscular Hemoglobin Concent 33.0, Red Cell Distribution Width 12.5, Platelet Count 284, Mean Platelet Volume 6.7, Neutrophils (%) (Auto) 79.9H, Lymphocytes ( %) (Auto) 10.7L, Monocytes (%) (Auto) 8.7, Eosinophils (%) (Auto) 0.2, Basophils (%) (Auto) 0.5, Sodium Level 140, Potassium Level 3.7, Chloride Level 107, Carbon Dioxide Level 17L, Anion Gap 16H, Blood Urea Nitrogen 31H, Creatinine 1.8H, Estimat Glomerular Filtration Rate , Glucose Level 171H, Calcium Level 9.0 Height (Feet): 5 Height (Inches): 7.00 Weight (Pounds): 165 General Appearance: no apparent distress, alert, obese EENT: normal ENT inspection Neck: non-tender, normal alignment, supple Cardiovascular: normal peripheral pulses, normal rate, regular rhythm Respiratory/Chest: chest wall non-tender, lungs clear, normal breath sounds Abdomen: normal bowel sounds, non tender, soft Extremities: normal range of motion, non-tender Edema: no edema noted Arm (L), no edema noted Arm (R); 2+ Leg (L), 2+ Leg (R); no edema noted Pedal (L), no edema noted Pedal (R), no edema noted Generalized Neurologic: no motor/sensory deficits, alert, responsive Skin: warm/dry Lymphatic: normal anterior cervical (L), normal anterior cervical (R), normal posterior cervical (L), normal posterior cervical (R), normal submandibular (L) , normal submandibular (R), normal supraclavicular (L), normal supraclavicular ( R), normal axillary (L), normal axillary (R), normal inguinal (L), normal inguinal (R), normal other Addy Riggs MD Sep 05, 2017 13:18
[2017-09-05] MEDS ORDERED: Meropenem 1 GM in NS 55 ML IVPB SCH ×2 (14:00→21:00)
--- NOTE | 2017-09-05 15:43 | Cardiology Progress Note ---
Assessment/Plan Status: stable Assessment/Plan 1. Healthcare-associated pneumonia. 2. Altered mental status with mild encephalopathy. 3. Urinary tract infection. 4. Hypertension. 5. Elevated troponin. 6. Slight elevation in liver function tests. 7. History of depression. 8. Hyperlipidemia. 9. History of constipation. 10. Lymphedema. Plan Serial troponin -> downtrending, likely from urosepsis/PNA No indication for cath due to advanced age If troponin rises and conservatively give heparin gtt x48 hours Aspirin statin Physical therapy Swallow evaluation IV abx for UTI IV fluid hydration Amlodipine and Hyzaar for hypertension Monitor WBC Cultures Adjust Abx Continue to monitor Subjective Cardiovascular: Reports: no symptoms Respiratory: Reports: no symptoms Gastrointestinal/Abdominal: Reports: no symptoms Genitourinary: Reports: no symptoms Subjective No acute events, vitals stable, no acute distress, WBC elevated today, creatinine went up to 1.8 Discharge plans held. continues to be on ABx Objective Last 24 Hour Vital Signs Date Time Temp Pulse Resp B/P (MAP) Pulse Ox O2 Delivery O2 Flow Rate FiO2 09/05/17 12:00 97.5 78 20 131/79 (96) 96 97.5 09/05/17 12:00 74 09/05/17 09:15 68 115/57 09/05/17 09:00 Room Air 09/05/17 08:00 97.3 68 20 115/57 (76) 94 97.3 09/05/17 07:30 68 20 Room Air 21 09/05/17 04:00 98.0 18 121/68 (85) 90 98.0 09/05/17 00:00 97.7 20 99/50 (66) 92 97.7 09/05/17 00:00 68 09/04/17 22:15 73 20 Room Air 21 09/04/17 21:00 Room Air 09/04/17 20:00 97.6 67 24 131/73 (92) 92 97.6 09/04/17 20:00 72 09/04/17 17:49 78 24 Room Air 21 09/04/17 16:00 97.6 84 24 131/73 (92) 93 97.6 09/04/17 16:00 78 General Appearance: no apparent distress EENT: PERRL/EOMI Neck: non-tender Rhythm: NSR Cardiovascular: normal peripheral pulses Respiratory/Chest: chest wall non-tender Abdomen: normal bowel sounds Extremities: normal range of motion 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 Intake and Output 09/04/17 09/05/17 19:00 07:00 Intake Total 50 ml Output Total 200 ml 250 ml Balance -200 ml -200 ml Intake Oral 50 ml Output Urine Total 200 ml 250 ml # Bowel Movements 2 Laboratory Tests Test 09/05/17 07:07 White Blood Count 16.9 K/UL (4.8-10.8) H Red Blood Count 4.27 M/UL (4.20-5.40) Hemoglobin 12.9 G/DL (12.0-16.0) Hematocrit 39.2 % (37.0-47.0) Mean Corpuscular Volume 92 FL (80-99) Mean Corpuscular Hemoglobin 30.3 PG (27.0-31.0) Mean Corpuscular Hemoglobin Concent 33.0 G/DL (32.0-36.0) Red Cell Distribution Width 12.5 % (11.6-14.8) Platelet Count 284 K/UL (150-450) Mean Platelet Volume 6.7 FL (6.5-10.1) Neutrophils (%) (Auto) 79.9 % (45.0-75.0) H Lymphocytes (%) (Auto) 10.7 % (20.0-45.0) L Monocytes (%) (Auto) 8.7 % (1.0-10.0) Eosinophils (%) (Auto) 0.2 % (0.0-3.0) Basophils (%) (Auto) 0.5 % (0.0-2.0) Sodium Level 140 MMOL/L (136-145) Potassium Level 3.7 MMOL/L (3.5-5.1) Chloride Level 107 MMOL/L (98-107) Carbon Dioxide Level 17 MMOL/L (21-32) L Anion Gap 16 mmol/L (5-15) H Blood Urea Nitrogen 31 mg/dL (7-18) H Creatinine 1.8 MG/DL (0.55-1.30) H Estimat Glomerular Filtration Rate mL/min (>60) Glucose Level 171 MG/DL (74-106) H Calcium Level 9.0 MG/DL (8.5-10.1) Perez Partida M.D. Sep 05, 2017 15:43
[2017-09-05 16:03] VITALS: BP 104/60
[2017-09-05 20:00] VITALS: BP 106/60
--- NOTE | 2017-09-05 20:05 | Infectious Diseases Prog Note ---
Assessment/Plan Problems: (1) HCAP (healthcare-associated pneumonia) Assessment & Plan: on meropenem to cover for sepsis and UTI too due to MDR E.coli , repeated CXR showed CHF . (2) UTI (urinary tract infection) Assessment & Plan: with MDR E coli , on meropenem to cover her sepsis too due to MDR E. coli for two weeks (3) Altered mental status Assessment & Plan: suspect metabolic , head CT was negative for bleeding , continue neuro check (4) Fever Assessment & Plan: due to the above, improving, continue wide spectrum antibiotics and Tylenol (5) Sepsis Assessment & Plan: with MDR E.coli source most likely her UTI , on meropenem for two weeks . repeated blood culture to confirm clearance is pending (6) NORMA (acute kidney injury) Assessment & Plan: suspect dehydration, hold diuresis , continue gentle hydration, monitor renal function Subjective ROS Limited/Unobtainable: Yes Allergies: Coded Allergies: No Known Allergies (Unverified , 08/09/13) Subjective she was more lethargic and less responsive today , no fever or chills, no cough or SOB Objective Vital Signs Last 24 Hour Vital Signs Date Time Temp Pulse Resp B/P (MAP) Pulse Ox O2 Delivery O2 Flow Rate FiO2 09/05/17 19:03 70 20 Room Air 21 09/05/17 16:09 63 09/05/17 16:03 98.2 65 20 104/60 (75) 93 98.2 09/05/17 12:00 97.5 78 20 131/79 (96) 96 97.5 09/05/17 12:00 74 09/05/17 09:15 68 115/57 09/05/17 09:00 Room Air 09/05/17 08:00 97.3 68 20 115/57 (76) 94 97.3 09/05/17 07:30 68 20 Room Air 21 09/05/17 04:00 98.0 18 121/68 (85) 90 98.0 09/05/17 00:00 97.7 20 99/50 (66) 92 97.7 09/05/17 00:00 68 09/04/17 22:15 73 20 Room Air 21 09/04/17 21:00 Room Air 09/04/17 20:00 97.6 67 24 131/73 (92) 92 97.6 09/04/17 20:00 72 Height (Feet): 5 Height (Inches): 7.00 Weight (Pounds): 165 General Appearance: WD/WN, no acute distress HEENT: normocephalic, atraumatic, anicteric, mucous membranes moist, PERRL Respiratory/Chest: chest wall non-tender, no respiratory distress, no accessory muscle use, decreased breath sounds, crackles/rales Breasts: no masses Cardiovascular: normal peripheral pulses, normal rate, regular rhythm, no gallop/murmur, no JVD Abdomen: normal bowel sounds, soft, non tender, no organomegaly, non distended , no mass, no scars Genitourinary: normal external genitalia Extremities: no cyanosis, no clubbing Skin: no rash, no lesions Neurologic/Psychiatric: alert, disoriented Laboratory Tests Test 09/05/17 07:07 White Blood Count 16.9 K/UL (4.8-10.8) H Red Blood Count 4.27 M/UL (4.20-5.40) Hemoglobin 12.9 G/DL (12.0-16.0) Hematocrit 39.2 % (37.0-47.0) Mean Corpuscular Volume 92 FL (80-99) Mean Corpuscular Hemoglobin 30.3 PG (27.0-31.0) Mean Corpuscular Hemoglobin Concent 33.0 G/DL (32.0-36.0) Red Cell Distribution Width 12.5 % (11.6-14.8) Platelet Count 284 K/UL (150-450) Mean Platelet Volume 6.7 FL (6.5-10.1) Neutrophils (%) (Auto) 79.9 % (45.0-75.0) H Lymphocytes (%) (Auto) 10.7 % (20.0-45.0) L Monocytes (%) (Auto) 8.7 % (1.0-10.0) Eosinophils (%) (Auto) 0.2 % (0.0-3.0) Basophils (%) (Auto) 0.5 % (0.0-2.0) Sodium Level 140 MMOL/L (136-145) Potassium Level 3.7 MMOL/L (3.5-5.1) Chloride Level 107 MMOL/L (98-107) Carbon Dioxide Level 17 MMOL/L (21-32) L Anion Gap 16 mmol/L (5-15) H Blood Urea Nitrogen 31 mg/dL (7-18) H Creatinine 1.8 MG/DL (0.55-1.30) H Estimat Glomerular Filtration Rate mL/min (>60) Glucose Level 171 MG/DL (74-106) H Calcium Level 9.0 MG/DL (8.5-10.1) Current Medications Medications (Trade) Dose Ordered Sig/Kelly Route PRN Reason Start Time Stop Time Status Last Admin Dose Admin Acetaminophen (Tylenol) 650 mg Q6H PRN ORAL Mild Pain/Temp > 100.5 09/01/17 02:15 10/01/17 02:14 Acetaminophen/ Hydrocodone Bitart ([place] 5/325) 1 tab Q8H PRN ORAL For Pain 09/01/17 02:15 09/08/17 02:14 09/01/17 09:00 Albuterol/ Ipratropium (Albuterol/ Ipratropium) 3 ml Q6H PRN HHN Shortness of Breath 09/01/17 02:15 09/06/17 02:14 Amlodipine Besylate (Norvasc) 5 mg DAILY ORAL 09/01/17 09:00 10/01/17 08:59 09/05/17 09:15 Aspirin (ASA) 81 mg DAILY ORAL 09/01/17 09:00 10/01/17 08:59 09/05/17 09:12 Atorvastatin Calcium (Lipitor) 10 mg BEDTIME ORAL 09/01/17 21:00 10/01/17 20:59 09/04/17 21:02 Citalopram Hydrobromide (celeXA) 20 mg DAILY ORAL 09/01/17 09:00 10/01/17 08:59 09/05/17 09:12 Dextromethorphan/ Quinidine (Nuedexta Capsule) 1 cap BID ORAL 09/01/17 09:00 10/01/17 08:59 09/05/17 17:31 Famotidine (Pepcid) 20 mg BEDTIME ORAL 09/01/17 21:00 10/01/17 20:59 09/04/17 21:02 Heparin Sodium (Porcine) (Heparin 5000 units/ml) 5,000 units EVERY 12 HOURS SUBQ 09/01/17 09:00 10/01/17 08:59 09/05/17 09:17 Meloxicam (Mobic) 7.5 mg DAILY ORAL 09/01/17 09:00 10/01/17 08:59 09/05/17 09:12 Meropenem 500 mg/ Sodium Chloride 55 ml @ 110 mls/hr Q12HR IVPB 09/05/17 21:00 09/10/17 20:59 Ondansetron HCl (Zofran) 4 mg Q8H PRN ORAL Nausea & Vomiting 09/01/17 02:15 10/01/17 02:14 09/04/17 08:35 Phenytoin (Dilantin) 300 mg BEDTIME ORAL 09/01/17 21:00 10/01/17 20:59 09/04/17 21:03 Quetiapine Fumarate (SEROquel) 12.5 mg EVERY 4 HOURS PRN ORAL anxiety 09/01/17 13:00 10/01/17 12:59 09/05/17 12:32 Rivastigmine Tartrate (Exelon) 1.5 mg TWICE A DAY ORAL 09/01/17 09:00 10/01/17 08:59 09/05/17 17:30 Sodium Chloride 1,000 ml @ 75 mls/hr [id number] IV 09/05/17 10:39 10/05/17 10:38 09/05/17 11:21 Topiramate (Topamax) 100 mg DAILY ORAL 09/02/17 09:00 10/02/17 08:59 09/05/17 09:15 Maria G De León M.D. Sep 05, 2017 20:05
[2017-09-05] MEDS: Phenytoin 100mg cap ORAL SCH (21:46)
[2017-09-05] MEDS: Meropenem 500 MG in NS 55 ML IVPB SCH (21:55)
--- NOTE | 2017-09-05 23:59 | General Progress Note ---
Assessment/Plan Assessment/Plan Encephalopathy Agitation Dementia with behavioral dis -seroquel prn -provided ro - d/w staff Subjective Allergies: Coded Allergies: No Known Allergies (Unverified , 08/09/13) Subjective The pt is calmer and is confused Objective Last 24 Hour Vital Signs Date Time Temp Pulse Resp B/P (MAP) Pulse Ox O2 Delivery O2 Flow Rate FiO2 09/05/17 21:00 Room Air 09/05/17 20:00 98.2 60 24 106/60 (75) 94 98.2 09/05/17 20:00 61 09/05/17 19:03 70 20 Room Air 21 09/05/17 16:09 63 09/05/17 16:03 98.2 65 20 104/60 (75) 93 98.2 09/05/17 12:00 97.5 78 20 131/79 (96) 96 97.5 09/05/17 12:00 74 09/05/17 09:15 68 115/57 09/05/17 09:00 Room Air 09/05/17 08:00 97.3 68 20 115/57 (76) 94 97.3 09/05/17 07:30 68 20 Room Air 21 09/05/17 04:00 98.0 18 121/68 (85) 90 98.0 09/05/17 00:00 97.7 20 99/50 (66) 92 97.7 09/05/17 00:00 68 Intake and Output 09/04/17 09/05/17 19:00 07:00 Intake Total 50 ml Output Total 200 ml 250 ml Balance -200 ml -200 ml Intake Oral 50 ml Output Urine Total 200 ml 250 ml # Bowel Movements 2 Laboratory Tests 09/05/17 07:07: White Blood Count 16.9H, Red Blood Count 4.27, Hemoglobin 12.9, Hematocrit 39.2 , Mean Corpuscular Volume 92, Mean Corpuscular Hemoglobin 30.3, Mean Corpuscular Hemoglobin Concent 33.0, Red Cell Distribution Width 12.5, Platelet Count 284, Mean Platelet Volume 6.7, Neutrophils (%) (Auto) 79.9H, Lymphocytes ( %) (Auto) 10.7L, Monocytes (%) (Auto) 8.7, Eosinophils (%) (Auto) 0.2, Basophils (%) (Auto) 0.5, Sodium Level 140, Potassium Level 3.7, Chloride Level 107, Carbon Dioxide Level 17L, Anion Gap 16H, Blood Urea Nitrogen 31H, Creatinine 1.8H, Estimat Glomerular Filtration Rate , Glucose Level 171H, Calcium Level 9.0 Height (Feet): 5 Height (Inches): 7.00 Weight (Pounds): 165 Dayanna Luque MD Sep 05, 2017 23:59
[2017-09-06] VITALS: BP 130/66
[2017-09-06 04:00] VITALS: BP 144/75
[2017-09-06 08:20] VITALS: BP 144/108
[2017-09-06 08:27] LABS: BASOPHILS % (AUTO) 0.4 % (0.0-2.0); EOSINOPHILS % (AUTO) 0.7 % (0.0-3.0); HEMATOCRIT 36.1 % (37.0-47.0); HEMOGLOBIN 12.2 G/DL (12.0-16.0); MEAN CORPUSCULAR VOLUME 92 FL (80-99); NEUTROPHILS % (AUTO) 78.8 % (45.0-75.0); PLATELET COUNT 254 K/UL (150-450); RED BLOOD COUNT 3.94 M/UL (4.20-5.40); RED CELL DISTRIBUTION WIDTH 12.7 % (11.6-14.8); WHITE BLOOD COUNT 14.8 K/UL (4.8-10.8)
[2017-09-06 09:09] LABS: ANION GAP 13 mmol/L (5-15); BLOOD UREA NITROGEN 32 mg/dL (7-18); CALCIUM 8.7 MG/DL (8.5-10.1); CARBON DIOXIDE 23 MMOL/L (21-32); CHLORIDE 110 MMOL/L (98-107); CREATININE 1.3 MG/DL (0.55-1.30); POTASSIUM 3.6 MMOL/L (3.5-5.1); SODIUM 146 MMOL/L (136-145)
[2017-09-06] MEDS: Meropenem 500 MG in NS 55 ML IVPB SCH ×2 (09:33→21:00)
[2017-09-06] MEDS: Topiramate 100mg tab ORAL SCH (09:33)
[2017-09-06] MEDS: Aspirin Baby 81mg ORAL SCH (09:33)
[2017-09-06] MEDS: Citalopram Hydrobromide 10mg Tab ORAL SCH (09:34)
[2017-09-06] MEDS: Exelon 1.5mg cap ORAL SCH ×2 (09:34→17:05)
[2017-09-06] MEDS: Nuedexta Capsule 20/10mg ORAL SCH ×2 (09:34→17:05)
[2017-09-06] MEDS: Heparin 5000 units/ml inj SUBQ SCH ×2 (09:35→21:00)
[2017-09-06 12:00] VITALS: BP 124/67
[2017-09-06] MEDS ORDERED: Potassium Chloride 10 MEQ in 1/2 NS 1000ml 1,000 ML IV SCH (12:30)
--- NOTE | 2017-09-06 15:49 | Infectious Diseases Prog Note ---
Assessment/Plan Problems: (1) HCAP (healthcare-associated pneumonia) Assessment & Plan: on meropenem to cover for sepsis and UTI too due to MDR E.coli , will treat for two weeks , repeated CXR showed CHF . EOT 09/18/17 (2) UTI (urinary tract infection) Assessment & Plan: with MDR E coli , on meropenem to cover her sepsis too due to MDR E. coli for two weeks (3) Altered mental status Assessment & Plan: suspect metabolic , head CT was negative for bleeding , continue neuro check (4) Fever Assessment & Plan: due to the above, improving, continue wide spectrum antibiotics and Tylenol (5) Sepsis Assessment & Plan: with MDR E.coli source most likely her UTI , on meropenem for two weeks . repeated blood culture to confirm clearance is negative on . EOT 09/18/17 (6) NORMA (acute kidney injury) Assessment & Plan: suspect dehydration, hold diuresis , continue gentle hydration, monitor renal function Subjective ROS Limited/Unobtainable: Yes Allergies: Coded Allergies: No Known Allergies (Unverified , 08/09/13) Subjective she was awake and alert, more responsive and interactive, farsi speaker , no cough or SOB, no fever or chills, urine is clearing up, not cloudy Objective Vital Signs Last 24 Hour Vital Signs Date Time Temp Pulse Resp B/P (MAP) Pulse Ox O2 Delivery O2 Flow Rate FiO2 09/06/17 12:00 98.9 70 17 124/67 (86) 95 98.9 09/06/17 12:00 63 09/06/17 09:33 81 144/108 09/06/17 09:00 Room Air 09/06/17 08:20 97.6 81 21 144/108 (120) 91 97.6 09/06/17 08:00 74 09/06/17 04:00 70 09/06/17 04:00 97.3 78 22 144/75 (98) 93 97.3 09/06/17 00:00 97.2 65 20 130/66 (87) 94 97.2 09/06/17 00:00 57 09/05/17 21:00 Room Air 09/05/17 20:00 98.2 60 24 106/60 (75) 94 98.2 09/05/17 20:00 61 09/05/17 19:03 70 20 Room Air 21 09/05/17 16:09 63 09/05/17 16:03 98.2 65 20 104/60 (29) 93 98.2 Height (Feet): 5 Height (Inches): 7.00 Weight (Pounds): 165 General Appearance: WD/WN, no acute distress HEENT: normocephalic, atraumatic, anicteric, mucous membranes moist, PERRL Respiratory/Chest: no respiratory distress, no accessory muscle use, decreased breath sounds, crackles/rales Cardiovascular: normal peripheral pulses, normal rate, regular rhythm, no gallop/murmur, no JVD Abdomen: normal bowel sounds, soft, non tender, no organomegaly, non distended , no mass, no scars Genitourinary: normal external genitalia Extremities: no cyanosis, no clubbing Skin: no rash, no lesions Neurologic/Psychiatric: alert, oriented x 3, responsive Lymphatic: no neck adenopathy, no groin adenopathy Musculoskeletal: normal muscle bulk, no effusion Microbiology Date/Time Source Procedure Growth Status 09/04/17 13:05 Blood Blood Culture - Preliminary NO GROWTH AFTER 24 HOURS Resulted 09/04/17 12:57 Blood Blood Culture - Preliminary NO GROWTH AFTER 24 HOURS Resulted Laboratory Tests Test 09/06/17 06:55 White Blood Count 14.8 K/UL (4.8-10.8) H Red Blood Count 3.94 M/UL (4.20-5.40) L Hemoglobin 12.2 G/DL (12.0-16.0) Hematocrit 36.1 % (37.0-47.0) L Mean Corpuscular Volume 92 FL (80-99) Mean Corpuscular Hemoglobin 31.0 PG (27.0-31.0) Mean Corpuscular Hemoglobin Concent 33.8 G/DL (32.0-36.0) Red Cell Distribution Width 12.7 % (11.6-14.8) Platelet Count 254 K/UL (150-450) Mean Platelet Volume 7.0 FL (6.5-10.1) Neutrophils (%) (Auto) 78.8 % (45.0-75.0) H Lymphocytes (%) (Auto) 13.0 % (20.0-45.0) L Monocytes (%) (Auto) 7.0 % (1.0-10.0) Eosinophils (%) (Auto) 0.7 % (0.0-3.0) Basophils (%) (Auto) 0.4 % (0.0-2.0) Sodium Level 146 MMOL/L (136-145) H Potassium Level 3.6 MMOL/L (3.5-5.1) Chloride Level 110 MMOL/L (98-107) H Carbon Dioxide Level 23 MMOL/L (21-32) Anion Gap 13 mmol/L (5-15) Blood Urea Nitrogen 32 mg/dL (7-18) H Creatinine 1.3 MG/DL (0.55-1.30) Estimat Glomerular Filtration Rate mL/min (>60) Glucose Level 141 MG/DL (74-106) H Calcium Level 8.7 MG/DL (8.5-10.1) Current Medications Medications (Trade) Dose Ordered Sig/Kelly Route PRN Reason Start Time Stop Time Status Last Admin Dose Admin Acetaminophen (Tylenol) 650 mg Q6H PRN ORAL Mild Pain/Temp > 100.5 09/01/17 02:15 10/01/17 02:14 Acetaminophen/ Hydrocodone Bitart ([place] 5/325) 1 tab Q8H PRN ORAL For Pain 09/01/17 02:15 09/08/17 02:14 09/01/17 09:00 Amlodipine Besylate (Norvasc) 5 mg DAILY ORAL 09/01/17 09:00 10/01/17 08:59 09/06/17 09:33 Aspirin (ASA) 81 mg DAILY ORAL 09/01/17 09:00 10/01/17 08:59 09/06/17 09:33 Atorvastatin Calcium (Lipitor) 10 mg BEDTIME ORAL 09/01/17 21:00 10/01/17 20:59 09/05/17 21:45 Citalopram Hydrobromide (celeXA) 20 mg DAILY ORAL 09/01/17 09:00 10/01/17 08:59 09/06/17 09:34 Dextromethorphan/ Quinidine (Nuedexta Capsule) 1 cap BID ORAL 09/01/17 09:00 10/01/17 08:59 09/06/17 09:34 Famotidine (Pepcid) 20 mg BEDTIME ORAL 09/01/17 21:00 10/01/17 20:59 09/05/17 21:45 Heparin Sodium (Porcine) (Heparin 5000 units/ml) 5,000 units EVERY 12 HOURS SUBQ 09/01/17 09:00 10/01/17 08:59 09/06/17 09:35 Meloxicam (Mobic) 7.5 mg DAILY ORAL 09/01/17 09:00 10/01/17 08:59 09/06/17 09:33 Meropenem 500 mg/ Sodium Chloride 55 ml @ 110 mls/hr Q12HR IVPB 09/05/17 21:00 09/10/17 20:59 09/06/17 09:33 Ondansetron HCl (Zofran) 4 mg Q8H PRN ORAL Nausea & Vomiting 09/01/17 02:15 10/01/17 02:14 09/04/17 08:35 Phenytoin (Dilantin) 300 mg BEDTIME ORAL 09/01/17 21:00 10/01/17 20:59 09/05/17 21:46 Potassium Chloride 10 meq/ Sodium Chloride 1,005 ml @ 75 mls/hr [id number] IV 09/06/17 12:30 10/06/17 12:29 09/06/17 12:41 Quetiapine Fumarate (SEROquel) 12.5 mg EVERY 4 HOURS PRN ORAL anxiety 09/01/17 13:00 10/01/17 12:59 09/05/17 12:32 Rivastigmine Tartrate (Exelon) 1.5 mg TWICE A DAY ORAL 09/01/17 09:00 10/01/17 08:59 09/06/17 09:34 Topiramate (Topamax) 100 mg DAILY ORAL 09/02/17 09:00 10/02/17 08:59 09/06/17 09:33 Maria G De León M.D. Sep 06, 2017 15:49
--- NOTE | 2017-09-06 15:58 | General Progress Note ---
Assessment/Plan Status: stable, progressing Assessment/Plan Encephalopathy Agitation Dementia with behavioral dis -seroquel prn -provided ro - d/w staff Subjective Date patient seen: Sep 06, 2017 Neurologic/Psychiatric: Reports: anxiety, depressed, emotional problems Allergies: Coded Allergies: No Known Allergies (Unverified , 08/09/13) Subjective The pt is calmer and is confused Objective Last 24 Hour Vital Signs Date Time Temp Pulse Resp B/P (MAP) Pulse Ox O2 Delivery O2 Flow Rate FiO2 09/06/17 12:00 98.9 70 17 124/67 (86) 95 98.9 09/06/17 12:00 63 09/06/17 09:33 81 144/108 09/06/17 09:00 Room Air 09/06/17 08:20 97.6 81 21 144/108 (120) 91 97.6 09/06/17 08:00 74 09/06/17 04:00 70 09/06/17 04:00 97.3 78 22 144/75 (98) 93 97.3 09/06/17 00:00 97.2 65 20 130/66 (87) 94 97.2 09/06/17 00:00 57 09/05/17 21:00 Room Air 09/05/17 20:00 98.2 60 24 106/60 (75) 94 98.2 09/05/17 20:00 61 09/05/17 19:03 70 20 Room Air 21 09/05/17 16:09 63 09/05/17 16:03 98.2 65 20 104/60 (75) 93 98.2 Intake and Output 09/05/17 09/06/17 19:00 07:00 Intake Total 925 ml 910 ml Output Total 200 ml 200 ml Balance 725 ml 710 ml Intake Oral 400 ml IV Total 525 ml 910 ml Output Urine Total 200 ml 200 ml Laboratory Tests 09/06/17 06:55: White Blood Count 14.8H, Red Blood Count 3.94L, Hemoglobin 12.2, Hematocrit 36.1L, Mean Corpuscular Volume 92, Mean Corpuscular Hemoglobin 31.0, Mean Corpuscular Hemoglobin Concent 33.8, Red Cell Distribution Width 12.7, Platelet Count 254, Mean Platelet Volume 7.0, Neutrophils (%) (Auto) 78.8H, Lymphocytes ( %) (Auto) 13.0L, Monocytes (%) (Auto) 7.0, Eosinophils (%) (Auto) 0.7, Basophils (%) (Auto) 0.4, Sodium Level 146H, Potassium Level 3.6, Chloride Level 110H, Carbon Dioxide Level 23, Anion Gap 13, Blood Urea Nitrogen 32H, Creatinine 1.3, Estimat Glomerular Filtration Rate , Glucose Level 141H, Calcium Level 8.7 Height (Feet): 5 Height (Inches): 7.00 Weight (Pounds): 165 General Appearance: no apparent distress, alert, confused Dayanna Luque MD Sep 06, 2017 15:58
[2017-09-06 16:00] VITALS: BP 115/63
--- NOTE | 2017-09-06 17:26 | General Progress Note ---
Assessment/Plan Status: stable Assessment/Plan 1. Healthcare-associated pneumonia - on merapenem 1 gm IV q 12 hrs per ID for total of 2 wks. 2. Altered mental status with mild metabolic encephalopathy - improved. 3. Urinary tract infection - on Merapenem 1 gm IV q 12 hrs for sepsis and UTI. 4. Hypertension - cont norvasc 5 mg daily 5. Elevated troponin - cardiology following. Elevated troponin 2nd to UTI and pneumonia. 6. Slight elevation in liver function tests - Repeat LFT improved. 7. History of depression 8. Hyperlipidemia - cont home statin. 9. History of constipation - stable now. 10. Lymphedema. 11. slarred speech - improved. CT of head negative for CVA. speech eval done. asp precautions. 12. Generalized weakness - P.T. and O.T. eval and txt done. Pt needs group home. D/C tomorrow to [facility]. 13. Sepsis 2nd to UTI - on merapenem 1 gm IV q 12 hrs. culture grow E Coli. repeat blood cx neg x 24 hrs. Subjective Date patient seen: Sep 06, 2017 Time patient seen: 05:00 Constitutional: Reports: weakness HEENT: Reports: no symptoms Cardiovascular: Reports: no symptoms Respiratory: Reports: no symptoms Gastrointestinal/Abdominal: Reports: no symptoms Genitourinary: Reports: no symptoms Neurologic/Psychiatric: Reports: no symptoms Endocrine: Reports: no symptoms Hematologic/Lymphatic: Reports: no symptoms Allergies: Coded Allergies: No Known Allergies (Unverified , 08/09/13) Subjective afebrile. no sob or chest pain. Her WBC improved with IV hydration. no nausea or vomiting. Objective Last 24 Hour Vital Signs Date Time Temp Pulse Resp B/P (MAP) Pulse Ox O2 Delivery O2 Flow Rate FiO2 09/06/17 16:00 98.0 80 17 115/63 (80) 100 98.0 09/06/17 14:44 95 Nasal Cannula 3.0 32 09/06/17 14:44 Nasal Cannula 3.0 32 09/06/17 14:44 71 22 Nasal Cannula 3.0 32 09/06/17 12:00 98.9 70 17 124/67 (86) 95 98.9 09/06/17 12:00 63 09/06/17 09:33 81 144/108 09/06/17 09:00 Room Air 09/06/17 08:20 97.6 81 21 144/108 (120) 91 97.6 09/06/17 08:00 74 09/06/17 04:00 70 09/06/17 04:00 97.3 78 22 144/75 (98) 93 97.3 09/06/17 00:00 97.2 65 20 130/66 (87) 94 97.2 09/06/17 00:00 57 09/05/17 21:00 Room Air 09/05/17 20:00 98.2 60 24 106/60 (75) 94 98.2 09/05/17 20:00 61 09/05/17 19:03 70 20 Room Air 21 Intake and Output 09/05/17 09/06/17 19:00 07:00 Intake Total 925 ml 910 ml Output Total 200 ml 200 ml Balance 725 ml 710 ml Intake Oral 400 ml IV Total 525 ml 910 ml Output Urine Total 200 ml 200 ml Laboratory Tests 09/06/17 06:55: White Blood Count 14.8H, Red Blood Count 3.94L, Hemoglobin 12.2, Hematocrit 36.1L, Mean Corpuscular Volume 92, Mean Corpuscular Hemoglobin 31.0, Mean Corpuscular Hemoglobin Concent 33.8, Red Cell Distribution Width 12.7, Platelet Count 254, Mean Platelet Volume 7.0, Neutrophils (%) (Auto) 78.8H, Lymphocytes ( %) (Auto) 13.0L, Monocytes (%) (Auto) 7.0, Eosinophils (%) (Auto) 0.7, Basophils (%) (Auto) 0.4, Sodium Level 146H, Potassium Level 3.6, Chloride Level 110H, Carbon Dioxide Level 23, Anion Gap 13, Blood Urea Nitrogen 32H, Creatinine 1.3, Estimat Glomerular Filtration Rate , Glucose Level 141H, Calcium Level 8.7 Height (Feet): 5 Height (Inches): 7.00 Weight (Pounds): 165 General Appearance: no apparent distress, alert EENT: normal ENT inspection Neck: non-tender, normal alignment, supple Cardiovascular: normal rate, regular rhythm Respiratory/Chest: chest wall non-tender, lungs clear, normal breath sounds Abdomen: non tender, soft Extremities: normal range of motion, non-tender Edema: no edema noted Arm (L), no edema noted Arm (R), no edema noted Leg (L), no edema noted Leg (R), no edema noted Pedal (L), no edema noted Pedal (R), no edema noted Generalized Neurologic: alert, responsive Skin: warm/dry Lymphatic: normal anterior cervical (L), normal anterior cervical (R), normal posterior cervical (L), normal posterior cervical (R), normal submandibular (L) , normal submandibular (R), normal supraclavicular (L), normal supraclavicular ( R), normal axillary (L), normal axillary (R), normal inguinal (L), normal inguinal (R), normal other Addy Riggs MD Sep 06, 2017 17:26
--- NOTE | 2017-09-06 17:38 | Diagnostic Imaging Report ---
Indications: Dysphagia Technique: Patient ingested multiple substances under the supervision of speech pathology. Video fluoroscopic recording performed. Total fluoroscopy time 127 seconds. Total dose area product 0.11350 mGycm2 Comparison: none Findings: Sean aspiration on initial swallow of thin liquid barium is demonstrated. Multiple episodes of laryngeal penetration also demonstrated with repeated ingestion of thin liquid barium. Episodes of supraglottic laryngeal penetration seen with nectar thick liquid barium. Minimal early pooling but no aspiration or penetration seen with honey thick liquid barium and barium puree. Impression: Positive for aspiration of thin liquid barium and penetration of nectar thick liquid barium Please refer to speech pathology report for more detailed assessment
--- NOTE | 2017-09-06 18:41 | Cardiology Progress Note ---
Assessment/Plan Status: stable Assessment/Plan 1. Healthcare-associated pneumonia. 2. Altered mental status with mild encephalopathy. 3. Urinary tract infection. 4. Hypertension. 5. Elevated troponin. 6. Slight elevation in liver function tests. 7. History of depression. 8. Hyperlipidemia. 9. History of constipation. 10. Lymphedema. Plan Serial troponin -> downtrending, likely from urosepsis/PNA No indication for cath due to advanced age If troponin rises and conservatively give heparin gtt x48 hours Aspirin statin Physical therapy Swallow evaluation IV abx for UTI IV fluid hydration Amlodipine and Hyzaar for hypertension Monitor WBC Cultures Adjust Abx Continue to monitor Encourage PO intake Subjective Cardiovascular: Reports: no symptoms Respiratory: Reports: no symptoms Gastrointestinal/Abdominal: Reports: no symptoms Genitourinary: Reports: no symptoms Subjective No acute events, vitals stable, no acute distress, WBC elevated, creatinine went up Discharge plans held. continues to be on ABx Poor PO intake Blood cultures negative, vitals stable Objective Last 24 Hour Vital Signs Date Time Temp Pulse Resp B/P (MAP) Pulse Ox O2 Delivery O2 Flow Rate FiO2 09/06/17 16:00 98.0 80 17 115/63 (80) 100 98.0 09/06/17 14:44 95 Nasal Cannula 3.0 32 09/06/17 14:44 Nasal Cannula 3.0 32 09/06/17 14:44 71 22 Nasal Cannula 3.0 32 09/06/17 12:00 98.9 70 17 124/67 (86) 95 98.9 09/06/17 12:00 63 09/06/17 09:33 81 144/108 09/06/17 09:00 Room Air 09/06/17 08:20 97.6 81 21 144/108 (120) 91 97.6 09/06/17 08:00 74 09/06/17 04:00 70 09/06/17 04:00 97.3 78 22 144/75 (98) 93 97.3 09/06/17 00:00 97.2 65 20 130/66 (87) 94 97.2 09/06/17 00:00 57 09/05/17 21:00 Room Air 09/05/17 20:00 98.2 60 24 106/60 (75) 94 98.2 09/05/17 20:00 61 7/15/18 19:03 70 20 Room Air 21 General Appearance: no apparent distress EENT: PERRL/EOMI Neck: non-tender Rhythm: NSR Cardiovascular: normal peripheral pulses Respiratory/Chest: chest wall non-tender Abdomen: normal bowel sounds Extremities: normal range of motion 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 Intake and Output 09/05/17 09/06/17 19:00 07:00 Intake Total 925 ml 910 ml Output Total 200 ml 200 ml Balance 725 ml 710 ml Intake Oral 400 ml IV Total 525 ml 910 ml Output Urine Total 200 ml 200 ml Laboratory Tests Test 09/06/17 06:55 White Blood Count 14.8 K/UL (4.8-10.8) H Red Blood Count 3.94 M/UL (4.20-5.40) L Hemoglobin 12.2 G/DL (12.0-16.0) Hematocrit 36.1 % (37.0-47.0) L Mean Corpuscular Volume 92 FL (80-99) Mean Corpuscular Hemoglobin 31.0 PG (27.0-31.0) Mean Corpuscular Hemoglobin Concent 33.8 G/DL (32.0-36.0) Red Cell Distribution Width 12.7 % (11.6-14.8) Platelet Count 254 K/UL (150-450) Mean Platelet Volume 7.0 FL (6.5-10.1) Neutrophils (%) (Auto) 78.8 % (45.0-75.0) H Lymphocytes (%) (Auto) 13.0 % (20.0-45.0) L Monocytes (%) (Auto) 7.0 % (1.0-10.0) Eosinophils (%) (Auto) 0.7 % (0.0-3.0) Basophils (%) (Auto) 0.4 % (0.0-2.0) Sodium Level 146 MMOL/L (136-145) H Potassium Level 3.6 MMOL/L (3.5-5.1) Chloride Level 110 MMOL/L (98-107) H Carbon Dioxide Level 23 MMOL/L (21-32) Anion Gap 13 mmol/L (5-15) Blood Urea Nitrogen 32 mg/dL (7-18) H Creatinine 1.3 MG/DL (0.55-1.30) Estimat Glomerular Filtration Rate mL/min (>60) Glucose Level 141 MG/DL (74-106) H Calcium Level 8.7 MG/DL (8.5-10.1) Microbiology Date/Time Source Procedure Growth Status 09/04/17 13:05 Blood Blood Culture - Preliminary NO GROWTH AFTER 24 HOURS Resulted 09/04/17 12:57 Blood Blood Culture - Preliminary NO GROWTH AFTER 24 HOURS Resulted Perez Partida M.D. Sep 06, 2017 18:41
[2017-09-06 20:23] VITALS: BP 119/66
[2017-09-06] MEDS: Phenytoin 100mg cap ORAL SCH (21:00)
[2017-09-07 00:49] VITALS: BP 122/72
[2017-09-07 04:49] VITALS: BP 116/60
[2017-09-07 08:00] VITALS: BP 121/65
[2017-09-07] MEDS: Topiramate 100mg tab ORAL SCH (08:31)
[2017-09-07] MEDS: Nuedexta Capsule 20/10mg ORAL SCH (08:31)
[2017-09-07] MEDS: Exelon 1.5mg cap ORAL SCH (08:31)
[2017-09-07] MEDS: Citalopram Hydrobromide 10mg Tab ORAL SCH (08:31)
[2017-09-07] MEDS: Aspirin Baby 81mg ORAL SCH (08:31)
[2017-09-07] MEDS: Meropenem 500 MG in NS 55 ML IVPB SCH (08:32)
[2017-09-07] MEDS: Heparin 5000 units/ml inj SUBQ SCH (08:33)
--- NOTE | 2017-09-07 09:11 | General Progress Note ---
Assessment/Plan Status: stable Assessment/Plan 1. Healthcare-associated pneumonia - on merapenem 1 gm IV q 12 hrs per ID for total of 2 wks. last day on 09/18/17. 2. Altered mental status with mild metabolic encephalopathy - resolved. 3. Urinary tract infection - on Merapenem 1 gm IV q 12 hrs for sepsis and UTI. 4. Hypertension - cont norvasc 5 mg daily 5. Elevated troponin - Elevated troponin 2nd to UTI and pneumonia. 6. Slight elevation in liver function tests - Repeat LFT improved. 7. History of depression 8. Hyperlipidemia - cont home statin. 9. History of constipation - stable now. 10. Lymphedema. 11. slarred speech - improved. CT of head negative for CVA. speech eval done. asp precautions. 12. Generalized weakness - P.T. and O.T. eval and txt done. Pt needs [facility]. D[facility]C to [facility]. 13. Sepsis 2nd to UTI - on merapenem 1 gm IV q 12 hrs. culture grow E Coli. repeat blood cx neg. Subjective Date patient seen: Sep 07, 2017 Time patient seen: 08:50 Constitutional: Reports: weakness HEENT: Reports: no symptoms Cardiovascular: Reports: no symptoms Respiratory: Reports: no symptoms Gastrointestinal/Abdominal: Reports: no symptoms Genitourinary: Reports: no symptoms Neurologic/Psychiatric: Reports: no symptoms Endocrine: Reports: no symptoms Hematologic/Lymphatic: Reports: no symptoms Allergies: Coded Allergies: No Known Allergies (Unverified , 08/09/13) Subjective afebrile. no sob or chest pain. doing well today. no nausea or vomiting. Objective Last 24 Hour Vital Signs Date Time Temp Pulse Resp B/P (MAP) Pulse Ox O2 Delivery O2 Flow Rate FiO2 09/07/17 08:41 93 121/55 09/07/17 08:00 97.6 66 18 121/65 (83) 95 97.6 09/07/17 06:00 79 09/07/17 04:49 97.3 79 19 116/60 (78) 95 97.3 09/07/17 00:49 97.7 68 19 122/72 (89) 94 97.7 09/07/17 00:00 66 09/06/17 21:00 Room Air 09/06/17 20:40 Nasal Cannula 3.0 32 09/06/17 20:23 96.8 77 20 119/66 (83) 95 96.8 09/06/17 20:00 66 09/06/17 16:00 98.0 80 17 115/63 (80) 100 98.0 09/06/17 14:44 95 Nasal Cannula 3.0 32 09/06/17 14:44 Nasal Cannula 3.0 32 09/06/17 14:44 71 22 Nasal Cannula 3.0 32 09/06/17 12:00 98.9 70 17 124/67 (86) 95 98.9 09/06/17 12:00 63 09/06/17 09:33 81 144/108 Intake and Output 09/06/17 09/07/17 19:00 07:00 Intake Total 1210 ml Output Total 300 ml 120 ml Balance 910 ml -120 ml IV Total 710 ml Other 500 ml Output Urine Total 300 ml 120 ml Height (Feet): 5 Height (Inches): 7.00 Weight (Pounds): 165 General Appearance: no apparent distress, alert Neck: non-tender, normal alignment, supple Cardiovascular: normal rate, regular rhythm Respiratory/Chest: chest wall non-tender, lungs clear, normal breath sounds Abdomen: normal bowel sounds, non tender, soft Extremities: normal range of motion, non-tender Edema: no edema noted Arm (L), no edema noted Arm (R), no edema noted Leg (L), no edema noted Leg (R), no edema noted Pedal (L), no edema noted Pedal (R), no edema noted Generalized Neurologic: alert, oriented x 3, responsive Skin: warm/dry Lymphatic: normal anterior cervical (L), normal anterior cervical (R), normal posterior cervical (L), normal posterior cervical (R), normal submandibular (L) , normal submandibular (R), normal supraclavicular (L), normal supraclavicular ( R), normal axillary (L), normal axillary (R), normal inguinal (L), normal inguinal (R), normal other Addy Riggs MD Sep 07, 2017 09:11
[2017-09-07 10:01] LABS: BASOPHILS % (AUTO) 0.4 % (0.0-2.0); EOSINOPHILS % (AUTO) 0.8 % (0.0-3.0); HEMATOCRIT 37.8 % (37.0-47.0); HEMOGLOBIN 12.2 G/DL (12.0-16.0); MEAN CORPUSCULAR VOLUME 93 FL (80-99); NEUTROPHILS % (AUTO) 80.9 % (45.0-75.0); PLATELET COUNT 344 K/UL (150-450); RED BLOOD COUNT 4.07 M/UL (4.20-5.40); RED CELL DISTRIBUTION WIDTH 12.7 % (11.6-14.8); WHITE BLOOD COUNT 14.2 K/UL (4.8-10.8)
[2017-09-07 10:31] LABS: ANION GAP 14 mmol/L (5-15); BLOOD UREA NITROGEN 29 mg/dL (7-18); CALCIUM 8.5 MG/DL (8.5-10.1); CARBON DIOXIDE 21 MMOL/L (21-32); CHLORIDE 109 MMOL/L (98-107); CREATININE 1.3 MG/DL (0.55-1.30); SODIUM 144 MMOL/L (136-145)
[2017-09-07 10:48] LABS: ALANINE AMINOTRANSFERASE 54 U/L (12-78); ALBUMIN 2.5 G/DL (3.4-5.0); ALBUMIN/GLOBULIN RATIO 0.6 (1.0-2.7); ALKALINE PHOSPHATASE 106 U/L (46-116); ASPARTATE AMINO TRANSFERASE 76 U/L (15-37); BILIRUBIN,TOTAL 0.3 MG/DL (0.2-1.0)
[2017-09-07 12:00] VITALS: BP 123/63
--- NOTE | 2017-09-07 14:23 | Infectious Diseases Prog Note ---
Assessment/Plan Problems: (1) HCAP (healthcare-associated pneumonia) Assessment & Plan: on meropenem to cover for sepsis and UTI too due to MDR E.coli , will treat for two weeks . EOT 09/18/17 (2) UTI (urinary tract infection) Assessment & Plan: with MDR E coli , on meropenem to cover her sepsis too due to MDR E. coli for two weeks (3) Altered mental status Assessment & Plan: resolved, suspect metabolic , head CT was negative for bleeding (4) Fever Assessment & Plan: due to the above, resolved , continue antibiotics to treat her bacteremia and UTI, continue Tylenol as needed (5) Sepsis Assessment & Plan: with MDR E.coli source most likely her UTI , on meropenem for two weeks . repeated blood culture to confirm clearance is negative on . EOT 09/18/17 (6) NORMA (acute kidney injury) Assessment & Plan: suspect dehydration, hold diuresis , encourage hydration, monitor renal function Subjective Constitutional: Reports: no symptoms HEENT: Reports: no symptoms Respiratory: Reports: no symptoms Breasts: Reports: no symptoms Cardiovascular: Reports: no symptoms Gastrointestinal/Abdominal: Reports: no symptoms Genitourinary: Reports: no symptoms Neurologic: Reports: no symptoms Psychiatric: Reports: no symptoms Skin: Reports: no symptoms Endocrine: Reports: no symptoms Hematologic: Reports: no symptoms Musculoskeletal: Reports: no symptoms Allergies: Coded Allergies: No Known Allergies (Unverified , 08/09/13) Subjective she was awake and alert, more responsive and interactive, farsi speaker , no cough or SOB, no fever or chills, urine is clearing up, not cloudy Objective Vital Signs Last 24 Hour Vital Signs Date Time Temp Pulse Resp B/P (MAP) Pulse Ox O2 Delivery O2 Flow Rate FiO2 09/07/17 12:00 96.8 75 20 123/63 (83) 95 96.8 09/07/17 09:00 Room Air 09/07/17 08:41 93 121/55 09/07/17 08:00 68 09/07/17 08:00 97.6 66 18 121/65 (83) 95 97.6 09/07/17 07:15 Nasal Cannula 3.0 32 09/07/17 07:15 97 Nasal Cannula 2.0 28 09/07/17 06:00 79 09/07/17 04:49 97.3 79 19 116/60 (78) 95 97.3 09/07/17 00:49 97.7 68 19 122/72 (89) 94 97.7 09/07/17 00:00 66 09/06/17 21:00 Room Air 09/06/17 20:40 Nasal Cannula 3.0 32 09/06/17 20:23 96.8 77 20 119/66 (83) 95 96.8 09/06/17 20:00 66 09/06/17 16:00 98.0 80 17 115/63 (80) 100 98.0 09/06/17 14:44 95 Nasal Cannula 3.0 32 09/06/17 14:44 Nasal Cannula 3.0 32 09/06/17 14:44 71 22 Nasal Cannula 3.0 32 Height (Feet): 5 Height (Inches): 7.00 Weight (Pounds): 165 General Appearance: WD/WN, no acute distress HEENT: normocephalic, atraumatic, anicteric, mucous membranes moist Respiratory/Chest: chest wall non-tender, normal breath sounds, no respiratory distress, no accessory muscle use, decreased breath sounds Cardiovascular: normal peripheral pulses, normal rate, regular rhythm, no gallop/murmur, no JVD Abdomen: normal bowel sounds, soft, non tender, no organomegaly, non distended , no mass, no scars Extremities: no cyanosis, no clubbing Skin: no rash, no lesions, no ulcers Neurologic/Psychiatric: alert, oriented x 3, responsive Lymphatic: no neck adenopathy, no groin adenopathy Musculoskeletal: normal muscle bulk, no effusion Laboratory Tests Test 09/07/17 09:40 White Blood Count 14.2 K/UL (4.8-10.8) H Red Blood Count 4.07 M/UL (4.20-5.40) L Hemoglobin 12.2 G/DL (12.0-16.0) Hematocrit 37.8 % (37.0-47.0) Mean Corpuscular Volume 93 FL (80-99) Mean Corpuscular Hemoglobin 30.1 PG (27.0-31.0) Mean Corpuscular Hemoglobin Concent 32.4 G/DL (32.0-36.0) Red Cell Distribution Width 12.7 % (11.6-14.8) Platelet Count 344 K/UL (150-450) Mean Platelet Volume 7.1 FL (6.5-10.1) Neutrophils (%) (Auto) 80.9 % (45.0-75.0) H Lymphocytes (%) (Auto) 11.0 % (20.0-45.0) L Monocytes (%) (Auto) 7.0 % (1.0-10.0) Eosinophils (%) (Auto) 0.8 % (0.0-3.0) Basophils (%) (Auto) 0.4 % (0.0-2.0) Sodium Level 144 MMOL/L (136-145) Potassium Level 4.0 MMOL/L (3.5-5.1) Chloride Level 109 MMOL/L (98-107) H Carbon Dioxide Level 21 MMOL/L (21-32) Anion Gap 14 mmol/L (5-15) Blood Urea Nitrogen 29 mg/dL (7-18) H Creatinine 1.3 MG/DL (0.55-1.30) Estimat Glomerular Filtration Rate mL/min (>60) Glucose Level 182 MG/DL (74-106) H Calcium Level 8.5 MG/DL (8.5-10.1) Total Bilirubin 0.3 MG/DL (0.2-1.0) Aspartate Amino Transf (AST/SGOT) 76 U/L (15-37) H Alanine Aminotransferase (ALT/SGPT) 54 U/L (12-78) Alkaline Phosphatase 106 U/L (46-116) Total Protein 7.0 G/DL (6.4-8.2) Albumin 2.5 G/DL (3.4-5.0) L Globulin 4.5 g/dL Albumin/Globulin Ratio 0.6 (1.0-2.7) L Current Medications Medications (Trade) Dose Ordered Sig/Kelly Route PRN Reason Start Time Stop Time Status Last Admin Dose Admin Acetaminophen (Tylenol) 650 mg Q6H PRN ORAL Mild Pain/Temp > 100.5 09/01/17 02:15 10/01/17 02:14 Acetaminophen/ Hydrocodone Bitart ([place] 5/325) 1 tab Q8H PRN ORAL For Pain 09/01/17 02:15 09/08/17 02:14 09/01/17 09:00 Amlodipine Besylate (Norvasc) 5 mg DAILY ORAL 09/01/17 09:00 10/01/17 08:59 09/07/17 08:41 Aspirin (ASA) 81 mg DAILY ORAL 09/01/17 09:00 10/01/17 08:59 09/07/17 08:31 Atorvastatin Calcium (Lipitor) 10 mg BEDTIME ORAL 09/01/17 21:00 10/01/17 20:59 09/06/17 21:00 Citalopram Hydrobromide (celeXA) 20 mg DAILY ORAL 09/01/17 09:00 10/01/17 08:59 09/07/17 08:31 Dextromethorphan/ Quinidine (Nuedexta Capsule) 1 cap BID ORAL 09/01/17 09:00 10/01/17 08:59 09/07/17 08:31 Famotidine (Pepcid) 20 mg BEDTIME ORAL 09/01/17 21:00 10/01/17 20:59 09/06/17 21:00 Heparin Sodium (Porcine) (Heparin 5000 units/ml) 5,000 units EVERY 12 HOURS SUBQ 09/01/17 09:00 10/01/17 08:59 09/07/17 08:33 Meloxicam (Mobic) 7.5 mg DAILY ORAL 09/01/17 09:00 10/01/17 08:59 09/07/17 08:31 Meropenem 500 mg/ Sodium Chloride 55 ml @ 110 mls/hr Q12HR IVPB 09/05/17 21:00 09/10/17 20:59 09/07/17 08:32 Ondansetron HCl (Zofran) 4 mg Q8H PRN ORAL Nausea & Vomiting 09/01/17 02:15 10/01/17 02:14 09/04/17 08:35 Phenytoin (Dilantin) 300 mg BEDTIME ORAL 09/01/17 21:00 10/01/17 20:59 09/06/17 21:00 Quetiapine Fumarate (SEROquel) 12.5 mg EVERY 4 HOURS PRN ORAL anxiety 09/01/17 13:00 10/01/17 12:59 09/05/17 12:32 Rivastigmine Tartrate (Exelon) 1.5 mg TWICE A DAY ORAL 09/01/17 09:00 10/01/17 08:59 09/07/17 08:31 Topiramate (Topamax) 100 mg DAILY ORAL 09/02/17 09:00 10/02/17 08:59 09/07/17 08:31 Maria G De León M.D. Sep 07, 2017 14:23
--- NOTE | 2017-09-07 23:24 | General Progress Note ---
Assessment/Plan Assessment/Plan Encephalopathy Agitation Dementia with behavioral dis -seroquel prn -provided ro - d/w staff Subjective Date patient seen: Sep 07, 2017 Neurologic/Psychiatric: Reports: anxiety Allergies: Coded Allergies: No Known Allergies (Unverified , 08/09/13) Subjective The pt is calmer and is confused Objective Last 24 Hour Vital Signs Date Time Temp Pulse Resp B/P (MAP) Pulse Ox O2 Delivery O2 Flow Rate FiO2 09/07/17 12:00 96.8 75 20 123/63 (83) 95 96.8 09/07/17 09:00 Room Air 09/07/17 08:41 93 121/55 09/07/17 08:00 68 09/07/17 08:00 97.6 66 18 121/65 (83) 95 97.6 09/07/17 07:15 Nasal Cannula 3.0 32 09/07/17 07:15 97 Nasal Cannula 2.0 28 09/07/17 06:00 79 09/07/17 04:49 97.3 79 19 116/60 (78) 95 97.3 09/07/17 00:49 97.7 68 19 122/72 (89) 94 97.7 09/07/17 00:00 66 Intake and Output 09/06/17 09/07/17 19:00 07:00 Intake Total 1210 ml Output Total 300 ml 120 ml Balance 910 ml -120 ml IV Total 710 ml Other 500 ml Output Urine Total 300 ml 120 ml Laboratory Tests 09/07/17 09:40: White Blood Count 14.2H, Red Blood Count 4.07L, Hemoglobin 12.2, Hematocrit 37.8 , Mean Corpuscular Volume 93, Mean Corpuscular Hemoglobin 30.1, Mean Corpuscular Hemoglobin Concent 32.4, Red Cell Distribution Width 12.7, Platelet Count 344, Mean Platelet Volume 7.1, Neutrophils (%) (Auto) 80.9H, Lymphocytes ( %) (Auto) 11.0L, Monocytes (%) (Auto) 7.0, Eosinophils (%) (Auto) 0.8, Basophils (%) (Auto) 0.4, Sodium Level 144, Potassium Level 4.0, Chloride Level 109H, Carbon Dioxide Level 21, Anion Gap 14, Blood Urea Nitrogen 29H, Creatinine 1.3, Estimat Glomerular Filtration Rate , Glucose Level 182H, Calcium Level 8.5, Total Bilirubin 0.3, Aspartate Amino Transf (AST/SGOT) 76H, Alanine Aminotransferase (ALT/SGPT) 54, Alkaline Phosphatase 106, Total Protein 7.0, Albumin 2.5L, Globulin 4.5, Albumin/Globulin Ratio 0.6L Height (Feet): 5 Height (Inches): 7.00 Weight (Pounds): 165 Dayanna Luque MD Sep 07, 2017 23:24
--- NOTE | 2017-09-10 09:39 | Discharge Summary ---
Discharge Summary Discharge Summary _ DATE OF ADMISSION: 08/31/2017 DATE OF DISCHARGE: 09/07/2017 REASON FOR ADMISSION: 86 years old female with past medical history significant for hypertension, hyperlipidemia, osteoarthritis, GERD, depression, seizure disorder, history of right craniotomy, urinary incontinence, was sent from the assisted living with complaint of cough. Patient was reported being drowsy and altered for the last 2 days. Patient had a temperature in assisted living up to 101. Patient was taken Levaquin as outpatient for probable pneumonia , but her symptoms did not improve. Upon evaluation in emergency department , patient had leukocytosis and fever- 102.4. Urinalysis with evidence of UTI Chest x-ray showed pulmonary congestion and possible infiltrates. Creatinine 1.3. Troponin elevated 0.618. Pro BNP 4396. EKG revealed normal sinus rhythm, no acute ischemic changes. AST 71 , ALT in normal range. Patient admitted with diagnosis of altered mental status with mild encephalopathy, healthcare associated pneumonia, urinary tract infection, probably sepsis, hypertension, elevated troponin, slight elevation in liver function test, hyperlipidemia, history of depression, history of constipation, lymphedema. CONSULTANTS: tire classifier ID specialist Dr. De León psychiatrist [facility] COURSE: Patient admitted to telemetry floor. Patient started on empiric antibiotics. Initial blood culture revealed Escherichia coli. Urine culture revealed multidrug resistant Escherichia coli. Infectious disease specialist closely followed and optimized antibiotic regimen. Repeated blood culture on 09/04 were negative. Patient spiked leukocytosis at 15 up to 16.9. Chest x-ray was repeated and still revealed evidence of possible infiltrates. Patient was afebrile. Patient will need to complete IV antibiotics at the facility for total of 2 weeks as per ID recommendations. Leukocytosis trending down, patient afebrile. Housekeeping Supervisor closely followed. Troponin was downtrending. Mild elevation in troponin was likely secondary to sepsis. As per tire classifier, no indication for catheterization given advanced age. Per tire classifier, if troponin would rise, recommended conservatively give heparin drip for 48 hours. However troponin downtrending. No cardiac complaints. Patient was on aspirin and statin. CT of the head revealed no acute intracranial pathology, but showed evidence of chronic small vessel disease and evidence off right temporal craniotomy. Seizure precautions were maintained. Dilantin and Topamax were continued. Patient developed acute kidney injury with creatinine up to 1.8. Patient started on IV hydration. Renal parameters and electrolytes were closely monitored, electrolytes replaced as needed, nephrotoxins were avoided. With IV hydration creatinine down to 1.3 ( patient;s baseline). Blood pressure was managed with calcium channel [place] and Hyzaar and remained stable. Swallow evaluation was done, including bedside swallow evaluation and video swallow evaluation. Patient had dysphagia and aspiration was demonstrated on video swallow evaluation. Diet initiated as per speech therapist recommendations with strict aspiration/ reflux precautions and one-to-one feeding. Family was educated on strict aspiration precautions. AST downtrending. ALT remained in normal range. Pain management was addressed and controlled. Bowel regimen was instituted. GI prophylaxis provided. Supportive care provided. Psychiatry seen and evaluated patient and diagnosed patient with encephalopathy , agitation, dementia with behavioral disturbances. Psychiatrist optimized psychiatric medication regimen. Reality orientation and supportive therapy provided. Placement was found at the intermediate facility. Patient was stable for transfer. FINAL DIAGNOSES: Sepsis with Escherichia coli bacteremia ( secondary to UTI) UTI with MDR Escherichia coli Healthcare associated pneumonia Altered mental status with mild encephalopathy secondary to sepsis Hypertension Elevated troponin, likely due to sepsis Slight elevation in liver function tests Hyperlipidemia Dysphagia Dementia with behavioral disturbances Acute kidney injury Probable dehydration DISCHARGE MEDICATIONS: See Medication Reconciliation list. DISCHARGE INSTRUCTIONS: Patient was discharged to intermediate facility. Follow up with medical doctor at the facility. I have been assigned to dictate discharge summary for this account. I was not involved in the patient's management. Graciela Reynaga NP Sep 10, 2017 09:39
== END 2017-09-07 14:10 | DRG 871 ==
LOC: EDBD 19:42 → EMR 21:19 → 2E 21:28 → EDBEDREQTM 21:34 → EDBEDREQSVC 21:34 → EDBEDREQ 22:26 → 2E 23:38
DX: A41.51 Sepsis due to Escherichia coli [E. coli] (principal); J18.9 Pneumonia, unspecified organism; G93.40 Encephalopathy, unspecified; N39.0 Urinary tract infection, site not specified; F03.91 Unspecified dementia, unspecified severity, with behavioral disturbance; N17.9 Acute kidney failure, unspecified; Z16.24 Resistance to multiple antibiotics; Y95 Nosocomial condition; I10 Essential (primary) hypertension; K21.9 Gastro-esophageal reflux disease without esophagitis; R45.1 Restlessness and agitation; F32.9 Major depressive disorder, single episode, unspecified; E78.5 Hyperlipidemia, unspecified; I89.0 Lymphedema, not elsewhere classified; E86.0 Dehydration
CPT/HCPCS: 36415; 70450; 71045; 74230; 80048; 80053; 81003; 82550; 83605; 83880; 84484; 85025; 87040; 87081; 87086; 87181; 93005; 93306; 94664; 94760; 99285; J8499

== ENCOUNTER 2017-11-19 17:46 | Inpatient (IN) | payer MEDICARE, OTHER ==
[~2017-11-19] VITALS: Ht 160 cm; Wt 86.0 kg
[~2017-11-19 17:46] MED LIST changes: +HYZAAR 100-12.1 EACH ORAL; +MEROPENEM1 GM IV; +MEROPENEM500 MG IV; +NORVASC5 MG ORAL; +NUEDEXTA 20-101 EAC1 PO
[2017-11-19 17:53] VITALS: BP 138/50
[2017-11-19] MEDS ORDERED: OYSCO 500+D TA1 EAC1 PO (17:57)
[2017-11-19] MEDS ORDERED: SIMVASTATIN20 MG ORAL (17:57)
[2017-11-19] MEDS ORDERED: IBUPROFEN600 MG ORAL (17:57)
[2017-11-19] MEDS ORDERED: PEPCID40 MG/5 ML PO (17:57)
[2017-11-19] MEDS ORDERED: ARICEPT23 MG ORAL (17:57)
[2017-11-19] MEDS ORDERED: HYZAAR 100-12.1 EACH ORAL (17:57)
[2017-11-19] MEDS ORDERED: OLANZAPINE2.5 MG ORAL (17:57)
[2017-11-19] MEDS ORDERED: REMERON15 M1 ORAL (17:57)
[2017-11-19] MEDS ORDERED: VALPROIC A250 MG/5 M PO (17:57)
[2017-11-19 18:32] LABS: APPEARANCE,URINE CLEAR; BILIRUBIN, URINE NEGATIVE (NEGATIVE); COLOR,URINE PALE YELLOW; GLUCOSE, URINE (UA) NEGATIVE (NEGATIVE); KETONES,URINE NEGATIVE (NEGATIVE); LEUKOCYTE ESTERASE ,URINE 3+ (NEGATIVE); NITRITE,URINE NEGATIVE (NEGATIVE); PH,URINE 6 (4.5-8.0); PROTEIN,URINE 2+ (NEGATIVE); UROBILINOGEN,URINE NORMAL MG/DL (0.0-1.0)
[2017-11-19 18:33] LABS: BASOPHILS % (AUTO) 0.8 % (0.0-2.0); EOSINOPHILS % (AUTO) 0.4 % (0.0-3.0); HEMATOCRIT 39.2 % (37.0-47.0); HEMOGLOBIN 12.9 G/DL (12.0-16.0); LYMPHOCYTES % (AUTO) 20.5 % (20.0-45.0); MEAN CORPUSCULAR VOLUME 93 FL (80-99); MONOCYTES % (AUTO) 8.7 % (1.0-10.0); NEUTROPHILS % (AUTO) 69.6 % (45.0-75.0); PLATELET COUNT 269 K/UL (150-450); RED BLOOD COUNT 4.22 M/UL (4.20-5.40); RED CELL DISTRIBUTION WIDTH 11.8 % (11.6-14.8); WHITE BLOOD COUNT 13.6 K/UL (4.8-10.8)
[2017-11-19 18:42] LABS: ANION GAP 8 mmol/L (5-15); BLOOD UREA NITROGEN 32 mg/dL (7-18); CARBON DIOXIDE 30 MMOL/L (21-32); CHLORIDE 101 MMOL/L (98-107); POTASSIUM 4.1 MMOL/L (3.5-5.1); SODIUM 139 MMOL/L (136-145)
[2017-11-19 18:56] LABS: ALANINE AMINOTRANSFERASE 24 U/L (12-78); ALBUMIN 3.3 G/DL (3.4-5.0); ALBUMIN/GLOBULIN RATIO 0.6 (1.0-2.7); ALKALINE PHOSPHATASE 96 U/L (46-116); ASPARTATE AMINO TRANSFERASE 21 U/L (15-37); BILIRUBIN,TOTAL 0.3 MG/DL (0.2-1.0)
[2017-11-19] MEDS ORDERED: cefTRIAXone 1 GM in NS 55 ML IVPB ONE (19:00)
--- NOTE | 2017-11-19 19:21 | Emergency Room Report ---
History of Present Illness General Chief Complaint: General Complaint Source: Patient Present Illness HPI Patient is an 87-year-old female who presented after increased agitation with intermittent out burst. The patient was noted to have prior history of seizure disorder. As she had been recently been tapering off of Dilantin and starting on Depakote. The patient presented been taking Topamax as well. Patient was noted to have increased agitation. The patient was noted to have no episodes of vomiting. She was sent in by . Allergies: Coded Allergies: No Known Allergies (Unverified , 08/09/13) Patient History Past Medical History: see triage record, seizures, psych hx Now: No Reviewed Nursing Documentation: PMH: Agreed; PSxH: Agreed Nursing Documentation-PMH Hx Cardiac Problems: Yes - anemia, hyperlipidemia Hx Hypertension: Yes Hx Cancer: No Hx Gastrointestinal Problems: Yes - GERD, constipation Hx Neurological Problems: Yes - Alzh. Hx Seizures: Yes Review of Systems All Other Systems: limited - by mental status Physical Exam Vital Signs Date Time Temp Pulse Resp B/P (MAP) Pulse Ox O2 Delivery O2 Flow Rate FiO2 11/19/17 17:43 103 20 145/73 96 Room Air 11/19/17 17:53 98.7 98.7 General Appearance: alert, obese, Chronically Ill Eyes: bilateral eye PERRL Neck: full range of motion Respiratory: chest non-tender, lungs clear, normal breath sounds Cardiovascular #1: normal peripheral pulses, regular rate, rhythm, no edema Genitourinary: no CVA tenderness Musculoskeletal: back normal Neurologic: normal inspection, alert, oriented x3 Psychiatric: anxious Medical Decision Making Diagnostic Impression: Primary Impression: UTI (urinary tract infection) Additional Impression: Weakness ER Course Patient presented for generalized weakness and agitation.. Differential diagnosis included was not limited to anemia, urinary tract infection, electrolyte abnormality, hypothyroidism, myocardial infarction, myasthenia gravis, dehydration, among others. Because of complexity of patient's case laboratory testing and imaging studies were ordered. The patient was noted to have evidence of urinary tract infection. The patient did have mildly elevated white blood count per she was given IV Rocephin. The patient was noted to have slightly subtherapeutic Depakote level. The patient be admitted for adjustment of medications as well as IV antibiotics. Dr. Westbrook was contacted for inpatient management due to primary care physician. Labs Test 11/19/17 18:15 11/19/17 18:23 White Blood Count 13.6 K/UL (4.8-10.8) Red Blood Count 4.22 M/UL (4.20-5.40) Hemoglobin 12.9 G/DL (12.0-16.0) Hematocrit 39.2 % (37.0-47.0) Mean Corpuscular Volume 93 FL (80-99) Mean Corpuscular Hemoglobin 30.5 PG (27.0-31.0) Mean Corpuscular Hemoglobin Concent 32.8 G/DL (32.0-36.0) Red Cell Distribution Width 11.8 % (11.6-14.8) Platelet Count 269 K/UL (150-450) Mean Platelet Volume 8.8 FL (6.5-10.1) Neutrophils (%) (Auto) 69.6 % (45.0-75.0) Lymphocytes (%) (Auto) 20.5 % (20.0-45.0) Monocytes (%) (Auto) 8.7 % (1.0-10.0) Eosinophils (%) (Auto) 0.4 % (0.0-3.0) Basophils (%) (Auto) 0.8 % (0.0-2.0) Sodium Level 139 MMOL/L (136-145) Potassium Level 4.1 MMOL/L (3.5-5.1) Chloride Level 101 MMOL/L (98-107) Carbon Dioxide Level 30 MMOL/L (21-32) Anion Gap 8 mmol/L (5-15) Blood Urea Nitrogen 32 mg/dL (7-18) Creatinine 1.0 MG/DL (0.55-1.30) Estimat Glomerular Filtration Rate mL/min (>60) Glucose Level 108 MG/DL (74-106) Calcium Level 10.0 MG/DL (8.5-10.1) Total Bilirubin 0.3 MG/DL (0.2-1.0) Aspartate Amino Transf (AST/SGOT) 21 U/L (15-37) Alanine Aminotransferase (ALT/SGPT) 24 U/L (12-78) Alkaline Phosphatase 96 U/L (46-116) Total Protein 8.8 G/DL (6.4-8.2) Albumin 3.3 G/DL (3.4-5.0) Globulin 5.5 g/dL Albumin/Globulin Ratio 0.6 (1.0-2.7) Thyroid Stimulating Hormone (TSH) 0.018 uiU/mL (0.358-3.740) Salicylates Level 1.7 ug/mL (2.8-20) Acetaminophen Level < 2 MCG/ML (10-30) Phenytoin (Dilantin) Level 2.6 ug/mL (10-20) Valproic Acid (Depakene) Level 41 MCG/ML (50-100) Serum Alcohol < 3 mg/dL Urine Color Pale yellow Urine Appearance Clear Urine pH 6 (4.5-8.0) Urine Specific Drury 1.010 (1.005-1.035) Urine Protein 2+ (NEGATIVE) Urine Glucose (UA) Negative (NEGATIVE) Urine Ketones Negative (NEGATIVE) Urine Blood 2+ (NEGATIVE) Urine Nitrite Negative (NEGATIVE) Urine Bilirubin Negative (NEGATIVE) Urine Urobilinogen Normal MG/DL (0.0-1.0) Urine Leukocyte Esterase 3+ (NEGATIVE) Urine RBC 0-2 /HPF (0 - 2) Urine WBC Tntc /HPF (0 - 2) Urine Squamous Epithelial Cells Occasional /LPF Urine Bacteria Many /HPF (NONE) Last Vital Signs Date Time Temp Pulse Resp B/P (MAP) Pulse Ox O2 Delivery O2 Flow Rate FiO2 11/19/17 17:53 98.7 87 22 138/50 94 Room Air 98.7 Status: unchanged Disposition: ADMITTED INPATIENT Referrals: Addy Riggs MD (PCP) Dario Mcmullen MD Nov 19, 2017 19:21
[2017-11-19 19:22] VITALS: BP 144/64
[2017-11-19] MEDS ORDERED: Depakote 500mg tab ORAL ONE (19:30)
[2017-11-19 20:49] VITALS: BP 128/51
[2017-11-19 21:30] VITALS: BP 133/62
[2017-11-19] MEDS ORDERED: Depakote 125mg Sprinkles ORAL ONE (22:00)
[2017-11-20] VITALS: BP 109/58
[2017-11-20] MEDS ORDERED: OLANZapine 2.5mg tab ORAL PRN (01:15)
[2017-11-20 04:00] VITALS: BP 130/68
[2017-11-20] MEDS: OLANZapine 2.5mg tab ORAL SCH ×2 (09:45→17:22)
[2017-11-20] MEDS: Heparin 5000 units/ml inj SUBQ SCH ×2 (09:46→20:48)
[2017-11-20] MEDS: VASCULERA 630 MG ORAL SCH (09:47)
[2017-11-20 12:00] VITALS: BP 114/43
--- NOTE | 2017-11-20 12:56 | General Progress Note ---
Assessment/Plan Status: stable Assessment/Plan 1. UTI - cont rocephin 1 gm IV daily. follow up urine CX. 2. HTN - will decrease norvasc 2.5 mg today due to low blood pressure. 3. 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 5. Generalized Weakness - will have PT and OT eval and txt. 6. GERD - on pepcid 20 mg daily. 7. Altered mental status 2nd to UTI - patient has been calm and without any aggitation since admission. Subjective Date patient seen: Nov 20, 2017 Time patient seen: 11:45 Constitutional: Reports: weakness HEENT: Reports: no symptoms Cardiovascular: Reports: no symptoms Respiratory: Reports: no symptoms Gastrointestinal/Abdominal: Reports: no symptoms Genitourinary: Reports: no symptoms Neurologic/Psychiatric: Reports: no symptoms Endocrine: Reports: no symptoms Hematologic/Lymphatic: Reports: no symptoms Allergies: Coded Allergies: No Known Allergies (Unverified , 08/09/13) Subjective This morning she is afebrile. no sob or chest pain. no abd pain. no nausea or vomiting. Objective Last 24 Hour Vital Signs Date Time Temp Pulse Resp B/P (MAP) Pulse Ox O2 Delivery O2 Flow Rate FiO2 11/20/17 12:00 98.0 63 17 114/43 (66) 96 98.0 11/20/17 09:44 90 130/68 11/20/17 09:44 90 130/68 11/20/17 09:00 Room Air 11/20/17 04:00 98.9 90 20 130/68 (88) 95 98.9 11/20/17 00:00 98.9 86 20 109/58 (75) 95 98.9 11/19/17 22:27 Room Air 11/19/17 21:37 97.6 87 15 128/51 96 Room Air 97.6 84 11/19/17 21:30 98.8 84 20 133/62 (85) 96 98.8 11/19/17 20:49 97.6 84 15 128/51 96 Room Air 97.6 11/19/17 19:22 99.6 88 27 144/64 96 Room Air 99.6 11/19/17 17:53 98.7 87 22 138/50 94 Room Air 98.7 11/19/17 17:43 103 20 145/73 96 Room Air Intake and Output 11/19/17 11/20/17 19:00 07:00 Intake Total 100 ml Output Total 100 ml Balance -100 ml 100 ml Intake IV Total 100 ml Output Urine Total 100 ml # Voids 1 # Bowel Movements 1 Laboratory Tests 11/19/17 18:15: White Blood Count 13.6H, Red Blood Count 4.22, Hemoglobin 12.9, Hematocrit 39.2 , Mean Corpuscular Volume 93, Mean Corpuscular Hemoglobin 30.5, Mean Corpuscular Hemoglobin Concent 32.8, Red Cell Distribution Width 11.8, Platelet Count 269, Mean Platelet Volume 8.8, Neutrophils (%) (Auto) 69.6, Lymphocytes (% ) (Auto) 20.5, Monocytes (%) (Auto) 8.7, Eosinophils (%) (Auto) 0.4, Basophils ( %) (Auto) 0.8, Sodium Level 139, Potassium Level 4.1, Chloride Level 101, Carbon Dioxide Level 30, Anion Gap 8, Blood Urea Nitrogen 32H, Creatinine 1.0, Estimat Glomerular Filtration Rate , Glucose Level 108H, Calcium Level 10.0, Total Bilirubin 0.3, Aspartate Amino Transf (AST/SGOT) 21, Alanine Aminotransferase (ALT/SGPT) 24, Alkaline Phosphatase 96, Total Protein 8.8H, Albumin 3.3L, Globulin 5.5, Albumin/Globulin Ratio 0.6L, Thyroid Stimulating Hormone (TSH) 0.018L, Salicylates Level 1.7L, Acetaminophen Level < 2L, Phenytoin (Dilantin) Level 2.6L, Valproic Acid (Depakene) Level 41L, Serum Alcohol < 3 11/19/17 18:23: Urine Color Pale yellow, Urine Appearance Clear, Urine pH 6, Urine Specific Nabb 1.010, Urine Protein 2+H, Urine Glucose (UA) Negative, Urine Ketones Negative, Urine Blood 2+H, Urine Nitrite Negative, Urine Bilirubin Negative, Urine Urobilinogen Normal, Urine Leukocyte Esterase 3+H, Urine RBC 0-2, Urine WBC TntcH, Urine Squamous Epithelial Cells Occasional, Urine Bacteria ManyH Height (Feet): 5 Height (Inches): 3.00 Weight (Pounds): 145 General Appearance: no apparent distress, alert EENT: normal ENT inspection Neck: non-tender, normal alignment, supple Cardiovascular: normal peripheral pulses, normal rate, regular rhythm Respiratory/Chest: chest wall non-tender, lungs clear, normal breath sounds Abdomen: normal bowel sounds, non tender, soft, no organomegaly Extremities: normal range of motion, non-tender Edema: no edema noted Arm (L), no edema noted Arm (R), no edema noted Leg (L), no edema noted Leg (R), no edema noted Pedal (L), no edema noted Pedal (R), no edema noted Generalized Neurologic: alert, oriented x 3, responsive Lymphatic: normal anterior cervical (L), normal anterior cervical (R), normal posterior cervical (L), normal posterior cervical (R) Addy Riggs MD Nov 20, 2017 12:56
--- NOTE | 2017-11-20 16:45 | History and Physical Report ---
DATE OF ADMISSION: 11/19/2017 CHIEF COMPLAINT: Altered mental status and agitation. HISTORY OF PRESENT ILLNESS: This is an 87-year-old [place] female who was brought in by paramedics from [facility] for complaint of increased agitation with intermittent outbursts at the facility especially recently. This patient in the emergency room was found to have urinary tract infection. She has history of seizure disorder and the patient was recently at the [facility] and her seizure medication was changed to Depakote from Dilantin and the patient's Dilantin was slowly tapering down and will be discontinued. The last Depakote level in the rehab was 61, which is therapeutic, however, the patient's current Depakote level in the hospital shows 41, which is slightly lower than therapeutic. She did not have any fever or chills except for slight low-grade temperature. No nausea or vomiting. No chest pain. No shortness of breath. No diarrhea. PAST MEDICAL HISTORY: Includes history of seizure disorder, hypertension, coronary artery disease, GERD, lymphedema, and central obesity. PAST SURGICAL HISTORY: Includes history of brain surgery with resection of part of the brain. SOCIAL HISTORY: No history of smoking. No history of alcohol use. No history of IV drug use. [facility] but recently in re[facility]. ALLERGIES: No known drug allergies. REVIEW OF SYSTEMS: Negative except per HPI. PHYSICAL EXAMINATION: VITAL SIGNS: Include pulse 103, temperature 98.7, blood pressure 145/73, pulse oximetry 96% on room air. GENERAL APPEARANCE: Alert, obese, but responded to commands. HEENT: Normocephalic and normochromic. Extraocular muscles intact. Throat is clear. CHEST: The lungs are clear to auscultation bilaterally. No rales or rhonchi. CARDIOVASCULAR: Regular rate and rhythm. No murmur. No gallop. ABDOMEN: Soft, nontender, and nondistended. Positive bowel sounds. Central obesity. EXTREMITIES: Positive lymphedema bilaterally. No cyanosis or clubbing. NEUROLOGIC: Responds to commands. Cranial nerves II through XII intact. Alert and oriented x3. LABORATORY DATA: Include WBC 13.6, hemoglobin 12.9, hematocrit 39.2, platelet count 269,000; neutrophils 69, lymphocytes 20. Sodium 139, potassium 4.1, chloride 101, bicarbonate 30, BUN 32, creatinine 1, glucose 108, calcium 10, AST 21, ALT 24, alkaline phosphatase 96, albumin 3.3. TSH 0.018. Urine showed +2 protein, +2 blood, +3 leukocyte esterase, wbc too many to count, urine bacteria many. Valproic acid 41. Serum alcohol less than 3. Phenytoin level is 2.6. Acetaminophen less than 2. Salicylate 1.7. IMPRESSION: 1. Urinary tract infection - will start IV recephin 1 gm daily and follow up U/ A and CX. 2. Generalized weakness - will order PT and OT eval and txt. 3. Agitation, probably secondary to urinary tract infection and dementia 4. Coronary artery disease. 5. Hyperlipidemia. 6. Hypertension. 7. Seizure disorder. 8. Lymphedema. PLAN: The patient will be admitted for minimum of 2-night stay for diagnosis of UTI with treatment of IV antibiotic. Rossy Cornelius JOB#: [id number] CC: PETER
[2017-11-20] MEDS: cefTRIAXone 1 GM in D5W 55 ML IVPB SCH (19:04)
[2017-11-20 20:00] VITALS: BP 129/58
[2017-11-20] MEDS: Donepezil 5mg Tab ORAL SCH (20:45)
[2017-11-20] MEDS: Phenytoin 50mg tab ORAL SCH (20:46)
[2017-11-21] VITALS: BP 123/50
[2017-11-21 04:00] VITALS: BP 121/70
[2017-11-21 08:00] VITALS: BP 135/50
[2017-11-21] MEDS ORDERED: Tubing IV Secondary IV ONE (08:16)
[2017-11-21] MEDS ORDERED: NS 275ml ONE (08:16)
[2017-11-21] MEDS: OLANZapine 2.5mg tab ORAL SCH ×2 (08:55→17:30)
[2017-11-21] MEDS: VASCULERA 630 MG ORAL SCH (08:57)
[2017-11-21] MEDS: Heparin 5000 units/ml inj SUBQ SCH ×2 (08:59→20:05)
[2017-11-21 10:48] LABS: BASOPHILS % (AUTO) 0.5 % (0.0-2.0); EOSINOPHILS % (AUTO) 0.3 % (0.0-3.0); HEMATOCRIT 37.8 % (37.0-47.0); HEMOGLOBIN 12.1 G/DL (12.0-16.0); MEAN CORPUSCULAR VOLUME 91 FL (80-99); MONOCYTES % (AUTO) 10.6 % (1.0-10.0); NEUTROPHILS % (AUTO) 73.5 % (45.0-75.0); PLATELET COUNT 221 K/UL (150-450); RED BLOOD COUNT 4.17 M/UL (4.20-5.40); RED CELL DISTRIBUTION WIDTH 11.5 % (11.6-14.8); WHITE BLOOD COUNT 12.2 K/UL (4.8-10.8)
--- NOTE | 2017-11-21 10:55 | General Progress Note ---
Assessment/Plan Status: stable Assessment/Plan 1. UTI - cont rocephin 1 gm IV daily. follow up urine CX. 2. HTN - will cont norvasc 2.5 mg po daily. 3. 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 5. Generalized Weakness - cont PT and OT eval and txt. 6. GERD - on pepcid 20 mg daily. 7. Altered mental status 2nd to UTI and Dementia - cont IV abx and zyprexa 2.5 mg bid and prn for aggitation. 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 Subjective Date patient seen: Nov 21, 2017 Constitutional: Reports: weakness HEENT: Reports: no symptoms Cardiovascular: Reports: no symptoms Respiratory: Reports: no symptoms Gastrointestinal/Abdominal: Reports: no symptoms Genitourinary: Reports: no symptoms Neurologic/Psychiatric: Reports: no symptoms Endocrine: Reports: no symptoms Hematologic/Lymphatic: Reports: no symptoms Allergies: Coded Allergies: No Known Allergies (Unverified , 08/09/13) Subjective This morning she is afebrile. no sob or chest pain. no abd pain. no nausea or vomiting. This morning she was aggitated and given her zyprexa 2.5 mg and responded well per nursing. Objective Last 24 Hour Vital Signs Date Time Temp Pulse Resp B/P (MAP) Pulse Ox O2 Delivery O2 Flow Rate FiO2 11/21/17 09:00 Room Air 11/21/17 08:56 59 135/50 11/21/17 08:55 59 135/50 11/21/17 08:00 98.4 59 17 135/50 (78) 98 98.4 11/21/17 04:00 98.1 58 18 121/70 (87) 97 98.1 11/21/17 00:00 98.3 57 18 123/50 (74) 96 98.3 11/20/17 21:00 Room Air 11/20/17 20:00 98.9 58 19 129/58 (81) 96 98.9 11/20/17 12:00 98.0 63 17 114/43 (66) 96 98.0 Intake and Output 11/20/17 11/21/17 19:00 07:00 Intake Total 830 ml Balance 830 ml Intake Oral 720 ml IV Total 110 ml # Voids 1 Laboratory Tests 11/21/17 10:40: White Blood Count 12.2H, Red Blood Count 4.17L, Hemoglobin 12.1, Hematocrit 37.8 , Mean Corpuscular Volume 91, Mean Corpuscular Hemoglobin 29.1, Mean Corpuscular Hemoglobin Concent 32.1, Red Cell Distribution Width 11.5L, Platelet Count 221, Mean Platelet Volume 9.2, Neutrophils (%) (Auto) 73.5, Lymphocytes (%) (Auto) 15.0L, Monocytes (%) (Auto) 10.6H, Eosinophils (%) (Auto ) 0.3, Basophils (%) (Auto) 0.5, Sodium Level [Pending], Potassium Level [ Pending], Chloride Level [Pending], Carbon Dioxide Level [Pending], Blood Urea Nitrogen [Pending], Creatinine [Pending], Estimat Glomerular Filtration Rate [ Pending], Glucose Level [Pending], Calcium Level [Pending] Height (Feet): 5 Height (Inches): 3.00 Weight (Pounds): 145 General Appearance: no apparent distress, alert EENT: normal ENT inspection Neck: non-tender, normal alignment, supple Cardiovascular: normal peripheral pulses, normal rate, regular rhythm Respiratory/Chest: chest wall non-tender, lungs clear, normal breath sounds Abdomen: normal bowel sounds, non tender, soft Extremities: normal range of motion, non-tender Edema: 2+ Leg (L), 2+ Leg (R) Edema: non-pitting Neurologic: alert, responsive Skin: warm/dry Lymphatic: normal anterior cervical (L), normal anterior cervical (R), normal posterior cervical (L), normal posterior cervical (R), normal submandibular (L) , normal submandibular (R), normal supraclavicular (L), normal supraclavicular ( R), normal axillary (L), normal axillary (R), normal inguinal (L), normal inguinal (R), normal other Addy Riggs MD Nov 21, 2017 10:55
[2017-11-21 11:04] LABS: ANION GAP 9 mmol/L (5-15); BLOOD UREA NITROGEN 36 mg/dL (7-18); CALCIUM 9.2 MG/DL (8.5-10.1); CARBON DIOXIDE 27 MMOL/L (21-32); CHLORIDE 104 MMOL/L (98-107); CREATININE 1.1 MG/DL (0.55-1.30); POTASSIUM 4.1 MMOL/L (3.5-5.1); SODIUM 140 MMOL/L (136-145)
[2017-11-21 12:00] VITALS: BP 130/53
--- NOTE | 2017-11-21 12:31 | Diagnostic Imaging Report ---
EXAM: XR Right Hip With Pelvis When Performed, 2 or 3 Views CLINICAL HISTORY: PAIN TECHNIQUE: Two or three views of the right hip, with pelvis when performed. COMPARISON: No relevant prior studies available. FINDINGS: Bones/joints: Moderate degenerative joint space loss and marginal osteophytes at the right hip joint. No visible fracture or dislocation. Right SI joint and symphysis pubis appear unremarkable. Soft tissues: Unremarkable. IMPRESSION: Moderate degenerative joint space loss and marginal osteophytes at the right hip joint.
[2017-11-21 16:19] VITALS: BP 131/62
[2017-11-21] MEDS: cefTRIAXone 1 GM in D5W 55 ML IVPB SCH (18:14)
[2017-11-21 20:00] VITALS: BP 126/51
[2017-11-21] MEDS: Phenytoin 50mg tab ORAL SCH (20:03)
[2017-11-21] MEDS: Donepezil 5mg Tab ORAL SCH (20:04)
[2017-11-22] VITALS: BP 100/56
[2017-11-22 04:00] VITALS: BP 102/58
[2017-11-22 06:43] LABS: ANION GAP 8 mmol/L (5-15); BLOOD UREA NITROGEN 39 mg/dL (7-18); CALCIUM 8.7 MG/DL (8.5-10.1); CARBON DIOXIDE 28 MMOL/L (21-32); CHLORIDE 106 MMOL/L (98-107); CREATININE 1.1 MG/DL (0.55-1.30); SODIUM 142 MMOL/L (136-145)
[2017-11-22 06:50] LABS: BASOPHILS % (AUTO) 0.7 % (0.0-2.0); EOSINOPHILS % (AUTO) 0.3 % (0.0-3.0); HEMATOCRIT 32.3 % (37.0-47.0); LYMPHOCYTES % (AUTO) 20.4 % (20.0-45.0); MEAN CORPUSCULAR VOLUME 90 FL (80-99); NEUTROPHILS % (AUTO) 63.5 % (45.0-75.0); PLATELET COUNT 223 K/UL (150-450); RED BLOOD COUNT 3.59 M/UL (4.20-5.40); RED CELL DISTRIBUTION WIDTH 11.5 % (11.6-14.8)
[2017-11-22] MEDS: VASCULERA 630 MG ORAL SCH (08:44)
[2017-11-22] MEDS: OLANZapine 2.5mg tab ORAL SCH (08:49)
[2017-11-22] MEDS: Heparin 5000 units/ml inj SUBQ SCH ×2 (08:52→23:06)
[2017-11-22] MEDS ORDERED: Tylenol #3 tab (300mg/30mg) ORAL PRN (09:15)
--- NOTE | 2017-11-22 09:18 | General Progress Note ---
Assessment/Plan Status: stable Assessment/Plan 1. UTI - change rocephin 1 gm IV to Ertapenam 1 gm IV daily. not responding to rocephin. ID consult done. 2. HTN - will cont norvasc 2.5 mg po daily. 3. 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 will increase dilantin 300 mg qhs due to low valproic acid level and interaction with Ertapenam. 5. Generalized Weakness - cont PT and OT eval and txt. 6. GERD - on pepcid 20 mg daily. 7. Altered mental status 2nd to UTI and Dementia - cont IV abx and zyprexa 2.5 mg bid and prn for aggitation. 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 10. LBP - start tylenol # 3 one po q 6 hrs prn for mod to severe pain. and tylenol 650 mg q 6 hrs prn for mild pain. Subjective Date patient seen: Nov 22, 2017 Time patient seen: 08:40 Constitutional: Reports: weakness HEENT: Reports: no symptoms Cardiovascular: Reports: no symptoms Respiratory: Reports: no symptoms Gastrointestinal/Abdominal: Reports: no symptoms Genitourinary: Reports: no symptoms Neurologic/Psychiatric: Reports: no symptoms Endocrine: Reports: no symptoms Hematologic/Lymphatic: Reports: no symptoms Allergies: Coded Allergies: No Known Allergies (Unverified , 08/09/13) Subjective This morning she c/o low back pain. Her WBC has increased this morning. she also has low grade fever. she is not responding to rocephin and will be changed to ertapenam and ID consult done. Objective Last 24 Hour Vital Signs Date Time Temp Pulse Resp B/P (MAP) Pulse Ox O2 Delivery O2 Flow Rate FiO2 11/22/17 08:50 61 126/81 11/22/17 08:49 62 126/81 11/22/17 04:00 98.9 58 18 102/58 (73) 96 98.9 11/22/17 00:00 99.2 51 18 100/56 (71) 93 99.2 11/21/17 21:00 Room Air 11/21/17 20:00 99.3 67 18 126/51 (76) 94 99.3 11/21/17 16:19 97.8 79 19 131/62 (85) 98 97.8 11/21/17 12:00 98.0 60 18 130/53 (78) 98 98.0 Intake and Output 11/21/17 11/22/17 19:00 07:00 Intake Total 110 ml Balance 110 ml IV Total 110 ml # Voids 2 Laboratory Tests 11/21/17 10:40: White Blood Count 12.2H, Red Blood Count 4.17L, Hemoglobin 12.1, Hematocrit 37.8 , Mean Corpuscular Volume 91, Mean Corpuscular Hemoglobin 29.1, Mean Corpuscular Hemoglobin Concent 32.1, Red Cell Distribution Width 11.5L, Platelet Count 221, Mean Platelet Volume 9.2, Neutrophils (%) (Auto) 73.5, Lymphocytes (%) (Auto) 15.0L, Monocytes (%) (Auto) 10.6H, Eosinophils (%) (Auto ) 0.3, Basophils (%) (Auto) 0.5, Sodium Level 140, Potassium Level 4.1, Chloride Level 104, Carbon Dioxide Level 27, Anion Gap 9, Blood Urea Nitrogen 36H, Creatinine 1.1, Estimat Glomerular Filtration Rate , Glucose Level 112H, Calcium Level 9.2 11/22/17 05:30: White Blood Count 13.0H, Red Blood Count 3.59L, Hemoglobin 11.0L, Hematocrit 32.3L, Mean Corpuscular Volume 90, Mean Corpuscular Hemoglobin 30.6, Mean Corpuscular Hemoglobin Concent 34.0, Red Cell Distribution Width 11.5L, Platelet Count 223, Mean Platelet Volume 9.1, Neutrophils (%) (Auto) 63.5, Lymphocytes (%) (Auto) 20.4, Monocytes (%) (Auto) 15.0H, Eosinophils (%) (Auto) 0.3, Basophils (%) (Auto) 0.7, Sodium Level 142, Potassium Level 4.0, Chloride Level 106, Carbon Dioxide Level 28, Anion Gap 8, Blood Urea Nitrogen 39H, Creatinine 1.1, Estimat Glomerular Filtration Rate , Glucose Level 104, Calcium Level 8.7, Valproic Acid (Depakene) Level 25L Height (Feet): 5 Height (Inches): 3.00 Weight (Pounds): 145 General Appearance: alert Neck: non-tender, normal alignment, supple Cardiovascular: normal rate, regular rhythm Respiratory/Chest: chest wall non-tender, lungs clear, normal breath sounds Abdomen: normal bowel sounds, non tender, soft Extremities: normal range of motion, non-tender Edema: 1+ Leg (L), 1+ Leg (R) Edema: non-pitting Neurologic: alert, oriented x 3, responsive Skin: warm/dry Lymphatic: normal anterior cervical (L), normal anterior cervical (R), normal posterior cervical (L), normal posterior cervical (R), normal submandibular (L) , normal submandibular (R), normal supraclavicular (L), normal supraclavicular ( R), normal axillary (L), normal axillary (R), normal inguinal (L), normal inguinal (R), normal other Addy Riggs MD Nov 22, 2017 09:18
[2017-11-22 12:00] VITALS: BP 122/76
[2017-11-22] MEDS: Ertapenem 1 GM in NS 55 ML IVPB SCH (12:03)
--- NOTE | 2017-11-22 13:12 | Consultation ---
History of Present Illness General Date patient seen: Nov 20, 2017 Chief Complaint: General Complaint Present Illness HPI 87-year-old [place] female who was brought in from [facility] for agitation with intermittent outbursts at the facility. the pt is confused and a poor historian. The pt has memory impairment and pw waxing and waning of consciousness Allergies: Coded Allergies: No Known Allergies (Unverified , 08/09/13) Medication History Scheduled Amlodipine Besylate (Norvasc), 5 MG ORAL DAILY, (Reported) Aspirin* (Aspir-Low*), 81 MG PO DAILY, (Reported) Calcium Carbonate (Oyster Shell Calcium), 500 MG PO DAILY, (Reported) Citalopram Hydrobromide* (Celexa*), 20 MG ORAL DAILY, (Reported) Docusate Sodium (Doc-Q-Lace), 100 MG PO BID, (Reported) Donepezil Hcl (Aricept), 5 MG ORAL DAILY, (Reported) Famotidine (Pepcid), 20 MG ORAL BEDTIME, (Reported) Ibuprofen* (Motrin*), 600 MG ORAL FOUR TIMES A DAY, (Reported) Losartan/Hydrochlorothiazide 100-12.5 Tablet (Hyzaar 100-12.5 Tablet), 1 TAB ORAL DAILY, (Reported) Losartan/Hydrochlorothiazide 100-12.5 Tablet (Hyzaar 100-12.5 Tablet), 1 TAB ORAL DAILY, (Reported) Meloxicam* (Mobic*), 7.5 MG ORAL DAILY, (Reported) Meropenem (Meropenem), 1 GM IV EVERY 8 HOURS, (Reported) Mirtazapine (Remeron), 15 MG ORAL BEDTIME, (Reported) Olanzapine (Olanzapine), 2.5 MG ORAL DAILY, (Reported) Phenytoin (Dilantin), 100 MG ORAL QHS, (Reported) Rivastigmine Tartrate* (Exelon*), 1.5 MG ORAL TWICE A DAY, (Reported) Simvastatin (Zocor), 20 MG ORAL BEDTIME, (Reported) Simvastatin (Zocor), 20 MG ORAL BEDTIME, (Reported) Tolterodine Tartrate (Detrol La), 2 MG ORAL DAILY, (Reported) Topiramate* (Topamax*), 100 MG ORAL DAILY, (Reported) Scheduled PRN Hydrocodone Bit/Acetaminophen 5-325* ([place] 5-325*), 1 TAB ORAL Q6H PRN for For Pain Lactulose (Lactulose*), 30 ML ORAL BID PRN for constipation Loperamide HCl (Loperamide), 2 MG ORAL BID PRN for Diarrhea, (Reported) Meclizine Hcl* (Antivert*), 25 MG ORAL BID PRN for for dizziness, (Reported) Ondansetron (Zofran), 4 MG ORAL Q8H PRN for Nausea & Vomiting, (Reported) Polyethylene Glycol 3350* (Miralax*), 17 GM ORAL DAILY PRN for Constipation, ( Reported) Triamcinolone (Triamcinolone Acetonide), 1 EA APPLIC BID PRN for skin irritation , (Reported) Miscellaneous Medications Calcium Carbonate/Vitamin D3 ([place] 500+D Tablet), 1 EACH PO, (Reported) Dextromethorphan Hbr/Quinidine (Nuedexta 20-10 Mg Capsule), 1 EACH PO, (Reported ) Famotidine (Pepcid), 20 MG PO, (Reported) Folic Acid (Folic Acid), (Reported) Meropenem (Meropenem), 500 MG IV, (Reported) Valproate Sodium (Valproic Acid), 250 MG PO, (Reported) [voltaren gel 1 %], (Reported) Patient History Limited by: medical condition History Provided By: Patient, Medical Record Healthcare decision maker MADELINE CORMIER Resuscitation status Full Code Advanced Directive on File No Past Medical/Surgical History Past Medical/Surgical History: (1) Peritonsillar abscess (2) Peritonsillar abscess (3) Peritonsillar abscess (4) Fever (5) Gastroenteritis (6) Pneumonia (7) Fall (8) Oropharyngeal mass (9) Oropharyngeal mass (10) Back contusion (11) Sepsis (12) NORMA (acute kidney injury) (13) Weakness (14) UTI (urinary tract infection) (15) Encounter for generalized patient complaints (16) Altered mental status Review of Systems Psychiatric: Reports: anxiety, emotional problems, hallucinations Physical Exam General Appearance: no apparent distress, alert, confused, agitated Last 24 Hour Vital Signs Date Time Temp Pulse Resp B/P (MAP) Pulse Ox O2 Delivery O2 Flow Rate FiO2 11/22/17 09:00 Room Air 11/22/17 08:50 61 126/81 11/22/17 08:49 62 126/81 11/22/17 04:00 98.9 58 18 102/58 (73) 96 98.9 11/22/17 00:00 99.2 51 18 100/56 (71) 93 99.2 11/21/17 21:00 Room Air 11/21/17 20:00 99.3 67 18 126/51 (76) 94 99.3 11/21/17 16:19 97.8 79 19 131/62 (85) 98 97.8 Intake and Output 11/21/17 11/22/17 19:00 07:00 Intake Total 110 ml Balance 110 ml IV Total 110 ml # Voids 2 Laboratory Tests Test 11/22/17 05:30 White Blood Count 13.0 K/UL (4.8-10.8) H Red Blood Count 3.59 M/UL (4.20-5.40) L Hemoglobin 11.0 G/DL (12.0-16.0) L Hematocrit 32.3 % (37.0-47.0) L Mean Corpuscular Volume 90 FL (80-99) Mean Corpuscular Hemoglobin 30.6 PG (27.0-31.0) Mean Corpuscular Hemoglobin Concent 34.0 G/DL (32.0-36.0) Red Cell Distribution Width 11.5 % (11.6-14.8) L Platelet Count 223 K/UL (150-450) Mean Platelet Volume 9.1 FL (6.5-10.1) Neutrophils (%) (Auto) 63.5 % (45.0-75.0) Lymphocytes (%) (Auto) 20.4 % (20.0-45.0) Monocytes (%) (Auto) 15.0 % (1.0-10.0) H Eosinophils (%) (Auto) 0.3 % (0.0-3.0) Basophils (%) (Auto) 0.7 % (0.0-2.0) Sodium Level 142 MMOL/L (136-145) Potassium Level 4.0 MMOL/L (3.5-5.1) Chloride Level 106 MMOL/L (98-107) Carbon Dioxide Level 28 MMOL/L (21-32) Anion Gap 8 mmol/L (5-15) Blood Urea Nitrogen 39 mg/dL (7-18) H Creatinine 1.1 MG/DL (0.55-1.30) Estimat Glomerular Filtration Rate mL/min (>60) Glucose Level 104 MG/DL (74-106) Calcium Level 8.7 MG/DL (8.5-10.1) Valproic Acid (Depakene) Level 25 MCG/ML (50-100) L Height (Feet): 5 Height (Inches): 3.00 Weight (Pounds): 145 Medications Current Medications Medications (Trade) Dose Ordered Sig/Kelly Route PRN Reason Start Time Stop Time Status Last Admin Dose Admin Acetaminophen (Tylenol) 650 mg Q6H PRN ORAL Mild Pain/Temp > 100.5 11/22/17 09:15 12/22/17 09:14 Acetaminophen/ Codeine Phosphate (Tylenol #3) 1 tab Q6H PRN ORAL Severe Pain (Pain Scale 7-10) 11/22/17 09:15 11/29/17 09:14 11/22/17 10:00 Amlodipine Besylate (Norvasc) 2.5 mg DAILY ORAL 11/21/17 09:00 12/20/17 08:59 11/21/17 08:56 Atenolol (Tenormin) 50 mg DAILY ORAL 11/20/17 09:00 12/20/17 08:59 11/22/17 08:49 Atorvastatin Calcium (Lipitor) 20 mg BEDTIME ORAL 11/20/17 21:00 12/20/17 20:59 11/21/17 20:03 Clopidogrel Bisulfate (Plavix) 75 mg DAILY ORAL 11/20/17 09:00 12/20/17 08:59 11/22/17 08:49 Donepezil HCl (Aricept) 5 mg QHS ORAL 11/20/17 21:00 12/20/17 20:59 11/21/17 20:04 Ertapenem 1 gm/ Sodium Chloride 55 ml @ 110 mls/hr Q24H IVPB 11/22/17 11:00 11/27/17 10:59 11/22/17 12:03 Famotidine (Pepcid) 20 mg BEDTIME ORAL 11/20/17 21:00 12/20/17 20:59 11/21/17 20:03 Heparin Sodium (Porcine) (Heparin 5000 units/ml) 5,000 units EVERY 12 HOURS SUBQ 11/20/17 09:00 12/20/17 08:59 11/22/17 08:52 Mirtazapine (Remeron) 15 mg BEDTIME ORAL 11/20/17 21:00 12/20/17 20:59 11/21/17 20:04 Olanzapine (ZyPREXA) 2.5 mg BID ORAL 11/20/17 09:00 12/20/17 08:59 11/22/17 08:49 Olanzapine (ZyPREXA) 2.5 mg EVERY 6 HOURS PRN ORAL Agitation 11/20/17 01:15 12/20/17 01:14 Olanzapine (ZyPREXA) 5 mg Q4H PRN ORAL agitation 11/19/17 22:30 12/19/17 22:29 11/21/17 12:51 Patient Own Medication (Patient's Own Med) 1 ea DAILY ORAL 11/20/17 09:00 12/20/17 08:59 11/22/17 08:44 Phenytoin (Dilantin) 300 mg QHS ORAL 11/22/17 21:00 12/22/17 20:59 Valproic Acid (Depakene) 500 mg TID ORAL 11/20/17 09:00 12/20/17 08:59 11/22/17 12:03 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
--- NOTE | 2017-11-22 13:15 | General Progress Note ---
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 with behavioral dist zyprexa 2.5mg qam depakote 500mg po tid provided ro/st zyprexa 5mg qhs Subjective Date patient seen: Nov 22, 2017 Neurologic/Psychiatric: Reports: anxiety, depressed, emotional problems Allergies: Coded Allergies: No Known Allergies (Unverified , 08/09/13) Objective Last 24 Hour Vital Signs Date Time Temp Pulse Resp B/P (MAP) Pulse Ox O2 Delivery O2 Flow Rate FiO2 11/22/17 09:00 Room Air 11/22/17 08:50 61 126/81 11/22/17 08:49 62 126/81 11/22/17 04:00 98.9 58 18 102/58 (73) 96 98.9 11/22/17 00:00 99.2 51 18 100/56 (71) 93 99.2 11/21/17 21:00 Room Air 11/21/17 20:00 99.3 67 18 126/51 (76) 94 99.3 11/21/17 16:19 97.8 79 19 131/62 (85) 98 97.8 Intake and Output 11/21/17 11/22/17 19:00 07:00 Intake Total 110 ml Balance 110 ml IV Total 110 ml # Voids 2 Laboratory Tests 11/22/17 05:30: White Blood Count 13.0H, Red Blood Count 3.59L, Hemoglobin 11.0L, Hematocrit 32.3L, Mean Corpuscular Volume 90, Mean Corpuscular Hemoglobin 30.6, Mean Corpuscular Hemoglobin Concent 34.0, Red Cell Distribution Width 11.5L, Platelet Count 223, Mean Platelet Volume 9.1, Neutrophils (%) (Auto) 63.5, Lymphocytes (%) (Auto) 20.4, Monocytes (%) (Auto) 15.0H, Eosinophils (%) (Auto) 0.3, Basophils (%) (Auto) 0.7, Sodium Level 142, Potassium Level 4.0, Chloride Level 106, Carbon Dioxide Level 28, Anion Gap 8, Blood Urea Nitrogen 39H, Creatinine 1.1, Estimat Glomerular Filtration Rate , Glucose Level 104, Calcium Level 8.7, Valproic Acid (Depakene) Level 25L Height (Feet): 5 Height (Inches): 3.00 Weight (Pounds): 145 General Appearance: no apparent distress, alert, confused, agitated Dayanna Luque MD Nov 22, 2017 13:15
--- NOTE | 2017-11-22 14:15 | Infectious Diseases Prog Note ---
Assessment/Plan Problems: (1) UTI (urinary tract infection) Assessment & Plan: due to MDR morganella morgannii will start ertapenem for 10 days , keep in contact isolation (2) Sepsis Assessment & Plan: with leukocytosis , will order blood culture, continue ertapenem (3) Weakness Assessment & Plan: due to the above , continue PT/OT . (4) Fever Assessment & Plan: due to the above improving, continue antibiotics and tylenol (5) MRSA (methicillin resistant Staphylococcus aureus) colonization Assessment & Plan: will start bactroban for five days , keep in contact isolation (6) Colonization with VRE (vancomycin-resistant enterococcus) Assessment & Plan: keep in contact isolation Subjective Allergies: Coded Allergies: No Known Allergies (Unverified , 08/09/13) Objective Vital Signs Last 24 Hour Vital Signs Date Time Temp Pulse Resp B/P (MAP) Pulse Ox O2 Delivery O2 Flow Rate FiO2 11/22/17 09:00 Room Air 11/22/17 08:50 61 126/81 11/22/17 08:49 62 126/81 11/22/17 04:00 98.9 58 18 102/58 (73) 96 98.9 11/22/17 00:00 99.2 51 18 100/56 (71) 93 99.2 11/21/17 21:00 Room Air 11/21/17 20:00 99.3 67 18 126/51 (76) 94 99.3 11/21/17 16:19 97.8 79 19 131/62 (85) 98 97.8 Height (Feet): 5 Height (Inches): 3.00 Weight (Pounds): 145 Microbiology Date/Time Source Procedure Growth Status 11/19/17 18:20 Nasal Nares MRSA Culture - Final Staphylococcus Aureus - Mrsa Complete 11/19/17 18:23 Urine,Clean Catch Urine Culture - Final Morganella Morg Spp Morganii Complete 11/19/17 18:20 Rectum VRE Culture - Final Enterococcus Faecalis - Vre Complete 11/19/17 18:20 Rectum - Final NO CARBAPENEM-RESISTANT ENTEROBACTERI... Complete Laboratory Tests Test 11/22/17 05:30 White Blood Count 13.0 K/UL (4.8-10.8) H Red Blood Count 3.59 M/UL (4.20-5.40) L Hemoglobin 11.0 G/DL (12.0-16.0) L Hematocrit 32.3 % (37.0-47.0) L Mean Corpuscular Volume 90 FL (80-99) Mean Corpuscular Hemoglobin 30.6 PG (27.0-31.0) Mean Corpuscular Hemoglobin Concent 34.0 G/DL (32.0-36.0) Red Cell Distribution Width 11.5 % (11.6-14.8) L Platelet Count 223 K/UL (150-450) Mean Platelet Volume 9.1 FL (6.5-10.1) Neutrophils (%) (Auto) 63.5 % (45.0-75.0) Lymphocytes (%) (Auto) 20.4 % (20.0-45.0) Monocytes (%) (Auto) 15.0 % (1.0-10.0) H Eosinophils (%) (Auto) 0.3 % (0.0-3.0) Basophils (%) (Auto) 0.7 % (0.0-2.0) Sodium Level 142 MMOL/L (136-145) Potassium Level 4.0 MMOL/L (3.5-5.1) Chloride Level 106 MMOL/L (98-107) Carbon Dioxide Level 28 MMOL/L (21-32) Anion Gap 8 mmol/L (5-15) Blood Urea Nitrogen 39 mg/dL (7-18) H Creatinine 1.1 MG/DL (0.55-1.30) Estimat Glomerular Filtration Rate mL/min (>60) Glucose Level 104 MG/DL (74-106) Calcium Level 8.7 MG/DL (8.5-10.1) Valproic Acid (Depakene) Level 25 MCG/ML (50-100) L Current Medications Medications (Trade) Dose Ordered Sig/Kelly Route PRN Reason Start Time Stop Time Status Last Admin Dose Admin Acetaminophen (Tylenol) 650 mg Q6H PRN ORAL Mild Pain/Temp > 100.5 11/22/17 09:15 12/22/17 09:14 Acetaminophen/ Codeine Phosphate (Tylenol #3) 1 tab Q6H PRN ORAL Severe Pain (Pain Scale 7-10) 11/22/17 09:15 11/29/17 09:14 11/22/17 10:00 Amlodipine Besylate (Norvasc) 2.5 mg DAILY ORAL 11/21/17 09:00 12/20/17 08:59 11/21/17 08:56 Atenolol (Tenormin) 50 mg DAILY ORAL 11/20/17 09:00 12/20/17 08:59 11/22/17 08:49 Atorvastatin Calcium (Lipitor) 20 mg BEDTIME ORAL 11/20/17 21:00 12/20/17 20:59 11/21/17 20:03 Clopidogrel Bisulfate (Plavix) 75 mg DAILY ORAL 11/20/17 09:00 12/20/17 08:59 11/22/17 08:49 Donepezil HCl (Aricept) 5 mg QHS ORAL 11/20/17 21:00 12/20/17 20:59 11/21/17 20:04 Ertapenem 1 gm/ Sodium Chloride 55 ml @ 110 mls/hr Q24H IVPB 11/22/17 11:00 11/27/17 10:59 11/22/17 12:03 Famotidine (Pepcid) 20 mg BEDTIME ORAL 11/20/17 21:00 12/20/17 20:59 11/21/17 20:03 Heparin Sodium (Porcine) (Heparin 5000 units/ml) 5,000 units EVERY 12 HOURS SUBQ 11/20/17 09:00 12/20/17 08:59 11/22/17 08:52 Mirtazapine (Remeron) 15 mg BEDTIME ORAL 11/20/17 21:00 12/20/17 20:59 11/21/17 20:04 Olanzapine (ZyPREXA) 2.5 mg DAILY ORAL 11/23/17 09:00 12/23/17 08:59 Olanzapine (ZyPREXA) 2.5 mg EVERY 6 HOURS PRN ORAL Agitation 11/20/17 01:15 12/20/17 01:14 Olanzapine (ZyPREXA) 5 mg BEDTIME ORAL 11/22/17 21:00 12/22/17 20:59 Olanzapine (ZyPREXA) 5 mg Q4H PRN ORAL agitation 11/19/17 22:30 12/19/17 22:29 11/21/17 12:51 Patient Own Medication (Patient's Own Med) 1 ea DAILY ORAL 11/20/17 09:00 12/20/17 08:59 11/22/17 08:44 Phenytoin (Dilantin) 300 mg QHS ORAL 11/22/17 21:00 12/22/17 20:59 Valproic Acid (Depakene) 500 mg TID ORAL 11/20/17 09:00 12/20/17 08:59 11/22/17 12:03 Maria G De León M.D. Nov 22, 2017 14:15
--- NOTE | 2017-11-22 18:15 | Diagnostic Imaging Report ---
Indication: Ankle pain Technique: 3 views of the left ankle Comparison: none Findings: No acute fractures. No dislocations. There are small plantar spur. The bones are osteoporotic Impression: Negative
[2017-11-22 20:00] VITALS: BP 144/53
[2017-11-22] MEDS: Phenytoin 100mg cap ORAL SCH ×2 (21:00→23:08)
[2017-11-22] MEDS: Donepezil 5mg Tab ORAL SCH ×2 (21:00→23:07)
[2017-11-23] VITALS: BP 135/55
--- NOTE | 2017-11-23 02:30 | Consultation ---
DATE OF CONSULTATION: 11/22/2017 INFECTIOUS DISEASE CONSULTATION CONSULTING PHYSICIAN: Maria G De León M.D. REQUESTING PHYSICIAN: Addy Riggs M.D. REASON FOR CONSULTATION: Urinary tract infection, possible pyelonephritis due to multidrug-resistant Morganella morganii. HISTORY OF PRESENT ILLNESS: The patient is an 87-year-old Citizen Of [place] female with past medical history of seizure disorder, hypertension, coronary artery disease, GERD, lymphedema, and central obesity, who was brought in to [facility] from her [facility] for increased agitation with intermittent outbursts at the facility. The patient had extensive workup in the emergency room including urinalysis which showed evidence of infection, so the patient was started on ceftriaxone and admitted to the medical-surgical floor for further evaluation and antibiotics management. Her urine culture grew multi-drug resistant Morganella morganii, so Infectious Disease consultation was requested since her white count now is going up after she has been on ceftriaxone for almost three days. The patient herself is poor historian and cannot provide good history. History was mainly obtained from the medical record and primary care provider. REVIEW OF SYSTEMS: Unable to obtain. The patient is poor historian and cannot provide good history. PAST MEDICAL HISTORY: Significant for seizure disorder, hypertension, coronary artery disease, GERD, lymphedema, and central obesity. PAST SURGICAL HISTORY: Includes brain surgery with resection with craniectomy. SOCIAL HISTORY: The patient lives at [facility]. No recent drugs, tobacco, or alcohol. Previously was living at assisted living, [facility], but now in rehab. ALLERGIES: No known drug allergy. MEDICATIONS: The patient was on ceftriaxone 1 g IV q.24 hours. For rest of her medications, please refer to APR. PHYSICAL EXAMINATION: VITAL SIGNS: Temperature 97.5, pulse 67, respiration 18, blood pressure 122/76, saturation 97% on room air. GENERAL: Elderly female, lying in bed, awake, alert, responsive, follows the speaker, not in acute distress. HEENT: Normocephalic and atraumatic. Pupils reactive to lights. Dry oral mucosa. No exudate or thrush. NECK: Supple. No lymphadenopathy. CARDIOVASCULAR: Regular rate and rhythm. No murmur or gallop. LUNGS: She had diminished breathing sounds at the bases. No wheezing or rhonchi. Normal breathing effort. ABDOMEN: Soft, obese, nontender, and nondistended. Normal bowel sounds. No hepatosplenomegaly or ascites. No rebound. EXTREMITIES: She had edema on both lower extremities +2 and left posterior ankle swelling with local tenderness and decreased range of motion. LABORATORY DATA: Showed white count of 13,000, hemoglobin of 11, platelet count of 223,000. BUN of 39, creatinine of 1.1. Urinalysis showed +3 leukocyte esterase, wbc too numerous to count, and many bacteria in the urine. Microbiology, urine culture on November 19, grew more than 100,000 colonies of Morganella morganii resistant to ampicillin, cefazolin, ciprofloxacin, and Bactrim. MRSA and VRE screening are both positive. IMAGING: Hip x-ray on November 21, showed moderate degenerative joint space loss and marginal osteophytes at the right hip joint. ASSESSMENT AND RECOMMENDATION: 1. UTI, possible pyelonephritis with multi-drug resistant Morganella morganii. We will stop ceftriaxone and start ertapenem for 10 days. Keep the patient in contact isolation for now. 2. Sepsis with leukocytosis due to the above. We will order blood culture. Continue ertapenem empiric coverage for now. 3. Weakness, suspect due to the above. Continue physical therapy, hydration, and antibiotics. 4. Fever due to the above, improving. Continue antibiotics and Tylenol as needed. 5. MRSA colonization. We will start Bactroban for 5 days. Keep the patient in contact isolation. 6. Colonization with VRE. Keep in contact isolation for now. Thank you for the consult. ID will continue to follow. Please feel free to call with any question. Maria G De León M.D. DR: Buddy JOB#: [id number] CC:
[2017-11-23 04:00] VITALS: BP 108/58
[2017-11-23 06:54] LABS: BASOPHILS % (AUTO) 0.6 % (0.0-2.0); HEMATOCRIT 31.9 % (37.0-47.0); HEMOGLOBIN 10.3 G/DL (12.0-16.0); MEAN CORPUSCULAR VOLUME 90 FL (80-99); MONOCYTES % (AUTO) 13.1 % (1.0-10.0); NEUTROPHILS % (AUTO) 72.2 % (45.0-75.0); PLATELET COUNT 259 K/UL (150-450); RED BLOOD COUNT 3.54 M/UL (4.20-5.40); RED CELL DISTRIBUTION WIDTH 11.4 % (11.6-14.8); WHITE BLOOD COUNT 14.5 K/UL (4.8-10.8)
[2017-11-23 07:10] LABS: ANION GAP 9 mmol/L (5-15); BLOOD UREA NITROGEN 40 mg/dL (7-18); CALCIUM 9.1 MG/DL (8.5-10.1); CARBON DIOXIDE 27 MMOL/L (21-32); CHLORIDE 103 MMOL/L (98-107); SODIUM 139 MMOL/L (136-145)
[2017-11-23 08:48] VITALS: BP 128/50
[2017-11-23] MEDS: OLANZapine 2.5mg tab ORAL SCH (08:51)
[2017-11-23] MEDS: VASCULERA 630 MG ORAL SCH (08:51)
--- NOTE | 2017-11-23 08:56 | General Progress Note ---
Assessment/Plan Status: stable Assessment/Plan 1. UTI - cont Ertapenam 1 gm IV daily. ID is following. 2. HTN - cont norvasc 2.5 mg po daily. 3. 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 cont Dilantin 300 mg qhs. will taper down dilantin after IV abx is finished due to low valproic acid level and interaction with Ertapenam. 5. Generalized Weakness - cont PT and OT eval and txt. 6. GERD - on pepcid 20 mg daily. 7. Altered mental status 2nd to UTI and Dementia - cont IV abx and zyprexa for now. 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 10. LBP - improved. cont tylenol # 3 one po q 6 hrs prn for mod to severe pain. and tylenol 650 mg q 6 hrs prn for mild pain. Subjective Date patient seen: Nov 23, 2017 Time patient seen: 08:45 Constitutional: Reports: weakness HEENT: Reports: no symptoms Cardiovascular: Reports: no symptoms Respiratory: Reports: no symptoms Gastrointestinal/Abdominal: Reports: no symptoms Genitourinary: Reports: no symptoms Neurologic/Psychiatric: Reports: no symptoms Endocrine: Reports: no symptoms Hematologic/Lymphatic: Reports: no symptoms Allergies: Coded Allergies: No Known Allergies (Unverified , 08/09/13) Subjective This morning she is doing better. she has low grade fever and rising WBC. she is on ertapenem IV now. No diarrhea. Objective Last 24 Hour Vital Signs Date Time Temp Pulse Resp B/P (MAP) Pulse Ox O2 Delivery O2 Flow Rate FiO2 11/23/17 04:00 99.3 60 19 108/58 (75) 97 99.3 11/23/17 00:00 98.6 75 18 135/55 (81) 94 98.6 11/22/17 21:00 Room Air 11/22/17 20:00 98.8 68 18 144/53 (83) 98 98.8 11/22/17 12:00 97.5 67 18 122/76 (91) 97 97.5 11/22/17 09:00 Room Air Intake and Output 11/22/17 11/23/17 19:00 07:00 # Voids 4 Laboratory Tests 11/23/17 05:40: White Blood Count 14.5H, Red Blood Count 3.54L, Hemoglobin 10.3L, Hematocrit 31.9L, Mean Corpuscular Volume 90, Mean Corpuscular Hemoglobin 29.2, Mean Corpuscular Hemoglobin Concent 32.4, Red Cell Distribution Width 11.4L, Platelet Count 259, Mean Platelet Volume 7.9, Neutrophils (%) (Auto) 72.2, Lymphocytes (%) (Auto) 14.0L, Monocytes (%) (Auto) 13.1H, Eosinophils (%) (Auto ) 0.0, Basophils (%) (Auto) 0.6, Sodium Level 139, Potassium Level 4.0, Chloride Level 103, Carbon Dioxide Level 27, Anion Gap 9, Blood Urea Nitrogen 40H, Creatinine 1.0, Estimat Glomerular Filtration Rate , Glucose Level 119H, Calcium Level 9.1 Height (Feet): 5 Height (Inches): 3.00 Weight (Pounds): 145 General Appearance: no apparent distress, alert Neck: non-tender, normal alignment, supple Cardiovascular: normal peripheral pulses, normal rate, regular rhythm Respiratory/Chest: chest wall non-tender, lungs clear, normal breath sounds Abdomen: normal bowel sounds, non tender, soft Extremities: normal range of motion, non-tender Edema: no edema noted Arm (L), no edema noted Arm (R); 1+ Leg (L), 1+ Leg (R); no edema noted Pedal (L), no edema noted Pedal (R), no edema noted Generalized Neurologic: alert, oriented x 3, responsive Skin: warm/dry Lymphatic: normal anterior cervical (L), normal anterior cervical (R), normal posterior cervical (L), normal posterior cervical (R), normal submandibular (L) , normal submandibular (R), normal supraclavicular (L), normal supraclavicular ( R), normal axillary (L), normal axillary (R), normal inguinal (L), normal inguinal (R), normal other Addy Riggs MD Nov 23, 2017 08:56
[2017-11-23] MEDS: Heparin 5000 units/ml inj SUBQ SCH ×2 (08:59→20:34)
--- NOTE | 2017-11-23 09:58 | Physician Query ---
--------- THIS DOCUMENT IS A PERMANENT PART OF THE MEDICAL RECORD --------- PLEASE COMPLETE DOCUMENT BEFORE SIGNING Dear Dr. Riggs Date: 03/2017 Industrial Servicer/CDS Name: Sarika Stroud Industrial Servicer / CDS Phone # [phone] Exercise your independent professional judgment when responding to query. Question asked do not imply a particular answer is desired/expected. Clinical Documentation States: "Altered Mental Status / Agitation" was documented in H&P and progress notes. Patient is admitted with sepsis and UTI. Clinical Findings Show: Glucose: 108 Please indicate the nature and chronicity of the condition below: [ ] Metabolic Encephalopathy [ ] Toxic Encephalopathy [ ] Toxic - Metabolic Encephalopathy [ ] Progressive Encephalopathy [x ] Encephalopathy, Other [ ] Other: [ ] Not Applicable Severity [x ] Acute [ ] Chronic [ ] Acute on Chronic [ ] Unable to determine Condition Present on Admission: [x] Yes [ ] No [ ] Clinically Undeterminable Please also document in your Progress Notes and/or Discharge Summary and indicate if the condition was present on admission. MJorge HARTD
[2017-11-23] MEDS: Ertapenem 1 GM in NS 55 ML IVPB SCH (11:53)
[2017-11-23 12:36] VITALS: BP 139/91
--- NOTE | 2017-11-23 14:00 | General Progress Note ---
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 with behavioral dist depakote 500mg po tid provided ro/st zyprexa 5mg qhs start ativan prn Subjective Date patient seen: Nov 23, 2017 Neurologic/Psychiatric: Reports: anxiety Allergies: Coded Allergies: No Known Allergies (Unverified , 08/09/13) Subjective the pt is calmer however yelling and gets agitated Objective Last 24 Hour Vital Signs Date Time Temp Pulse Resp B/P (MAP) Pulse Ox O2 Delivery O2 Flow Rate FiO2 11/23/17 12:36 97.4 64 20 139/91 (107) 96 97.4 11/23/17 09:00 Room Air 11/23/17 08:54 65 128/50 11/23/17 08:53 65 128/50 11/23/17 08:48 97.5 65 20 128/50 (76) 93 97.5 11/23/17 04:00 99.3 60 19 108/58 (75) 97 99.3 11/23/17 00:00 98.6 75 18 135/55 (81) 94 98.6 11/22/17 21:00 Room Air 11/22/17 20:00 98.8 68 18 144/53 (83) 98 98.8 Intake and Output 11/22/17 11/23/17 19:00 07:00 # Voids 4 Laboratory Tests 11/23/17 05:40: White Blood Count 14.5H, Red Blood Count 3.54L, Hemoglobin 10.3L, Hematocrit 31.9L, Mean Corpuscular Volume 90, Mean Corpuscular Hemoglobin 29.2, Mean Corpuscular Hemoglobin Concent 32.4, Red Cell Distribution Width 11.4L, Platelet Count 259, Mean Platelet Volume 7.9, Neutrophils (%) (Auto) 72.2, Lymphocytes (%) (Auto) 14.0L, Monocytes (%) (Auto) 13.1H, Eosinophils (%) (Auto ) 0.0, Basophils (%) (Auto) 0.6, Sodium Level 139, Potassium Level 4.0, Chloride Level 103, Carbon Dioxide Level 27, Anion Gap 9, Blood Urea Nitrogen 40H, Creatinine 1.0, Estimat Glomerular Filtration Rate , Glucose Level 119H, Calcium Level 9.1 Height (Feet): 5 Height (Inches): 3.00 Weight (Pounds): 145 General Appearance: no apparent distress, alert, confused Dayanna Luque MD Nov 23, 2017 14:00
[2017-11-23 15:48] VITALS: BP 130/51
--- NOTE | 2017-11-23 16:28 | Infectious Diseases Prog Note ---
Assessment/Plan Problems: (1) UTI (urinary tract infection) Assessment & Plan: due to MDR Morganella mikei will continue ertapenem for 10 days , keep in contact isolation for now (2) Sepsis Assessment & Plan: with leukocytosis , due to the above , monitor blood culture, continue ertapenem empirically (3) Weakness Assessment & Plan: due to the above , continue PT/OT . (4) Fever Assessment & Plan: due to the above improving, continue antibiotics and tylenol (5) MRSA (methicillin resistant Staphylococcus aureus) colonization Assessment & Plan: continue bactroban for five days , keep in contact isolation (6) Colonization with VRE (vancomycin-resistant enterococcus) Assessment & Plan: keep in contact isolation Subjective Constitutional: Reports: no symptoms HEENT: Reports: no symptoms Respiratory: Reports: no symptoms Breasts: Reports: no symptoms Cardiovascular: Reports: no symptoms Gastrointestinal/Abdominal: Reports: no symptoms Genitourinary: Reports: no symptoms Neurologic: Reports: weakness Psychiatric: Reports: no symptoms Skin: Reports: ulcer Endocrine: Reports: no symptoms Hematologic: Reports: no symptoms Musculoskeletal: Reports: pain Allergies: Coded Allergies: No Known Allergies (Unverified , 08/09/13) Objective Vital Signs Last 24 Hour Vital Signs Date Time Temp Pulse Resp B/P (MAP) Pulse Ox O2 Delivery O2 Flow Rate FiO2 11/23/17 15:48 99.1 62 18 130/51 (77) 98 99.1 11/23/17 12:36 97.4 64 20 139/91 (107) 96 97.4 11/23/17 09:00 Room Air 11/23/17 08:54 65 128/50 11/23/17 08:53 65 128/50 11/23/17 08:48 97.5 65 20 128/50 (76) 93 97.5 11/23/17 04:00 99.3 60 19 108/58 (75) 97 99.3 11/23/17 00:00 98.6 75 18 135/55 (81) 94 98.6 11/22/17 21:00 Room Air 11/22/17 20:00 98.8 68 18 144/53 (83) 98 98.8 Height (Feet): 5 Height (Inches): 3.00 Weight (Pounds): 145 General Appearance: WD/WN, no acute distress HEENT: normocephalic, atraumatic, anicteric, mucous membranes moist, PERRL, EOMI, pharynx normal, supple, no JVD Respiratory/Chest: chest wall non-tender, normal breath sounds, no respiratory distress, no accessory muscle use, decreased breath sounds, crackles/rales Cardiovascular: normal peripheral pulses, normal rate, regular rhythm, no gallop/murmur, no JVD Abdomen: normal bowel sounds, soft, non tender, no organomegaly, non distended , no mass, no scars Extremities: no cyanosis, no clubbing Skin: no rash, no lesions, no ulcers Neurologic/Psychiatric: alert, responsive Lymphatic: no neck adenopathy, no groin adenopathy Musculoskeletal: normal muscle bulk, no effusion Laboratory Tests Test 11/23/17 05:40 White Blood Count 14.5 K/UL (4.8-10.8) H Red Blood Count 3.54 M/UL (4.20-5.40) L Hemoglobin 10.3 G/DL (12.0-16.0) L Hematocrit 31.9 % (37.0-47.0) L Mean Corpuscular Volume 90 FL (80-99) Mean Corpuscular Hemoglobin 29.2 PG (27.0-31.0) Mean Corpuscular Hemoglobin Concent 32.4 G/DL (32.0-36.0) Red Cell Distribution Width 11.4 % (11.6-14.8) L Platelet Count 259 K/UL (150-450) Mean Platelet Volume 7.9 FL (6.5-10.1) Neutrophils (%) (Auto) 72.2 % (45.0-75.0) Lymphocytes (%) (Auto) 14.0 % (20.0-45.0) L Monocytes (%) (Auto) 13.1 % (1.0-10.0) H Eosinophils (%) (Auto) 0.0 % (0.0-3.0) Basophils (%) (Auto) 0.6 % (0.0-2.0) Sodium Level 139 MMOL/L (136-145) Potassium Level 4.0 MMOL/L (3.5-5.1) Chloride Level 103 MMOL/L (98-107) Carbon Dioxide Level 27 MMOL/L (21-32) Anion Gap 9 mmol/L (5-15) Blood Urea Nitrogen 40 mg/dL (7-18) H Creatinine 1.0 MG/DL (0.55-1.30) Estimat Glomerular Filtration Rate mL/min (>60) Glucose Level 119 MG/DL (74-106) H Calcium Level 9.1 MG/DL (8.5-10.1) Current Medications Medications (Trade) Dose Ordered Sig/Kelly Route PRN Reason Start Time Stop Time Status Last Admin Dose Admin Acetaminophen (Tylenol) 650 mg Q6H PRN ORAL Mild Pain/Temp > 100.5 11/22/17 09:15 12/22/17 09:14 Acetaminophen/ Codeine Phosphate (Tylenol #3) 1 tab Q6H PRN ORAL Severe Pain (Pain Scale 7-10) 11/22/17 09:15 11/29/17 09:14 11/22/17 10:00 Amlodipine Besylate (Norvasc) 2.5 mg DAILY ORAL 11/21/17 09:00 12/20/17 08:59 11/23/17 08:53 Atenolol (Tenormin) 50 mg DAILY ORAL 11/20/17 09:00 12/20/17 08:59 11/23/17 08:54 Atorvastatin Calcium (Lipitor) 20 mg BEDTIME ORAL 11/20/17 21:00 12/20/17 20:59 11/21/17 20:03 Clopidogrel Bisulfate (Plavix) 75 mg DAILY ORAL 11/20/17 09:00 12/20/17 08:59 11/23/17 08:52 Divalproex Sodium (Depakote) 500 mg TID ORAL 11/23/17 18:00 12/23/17 17:59 Donepezil HCl (Aricept) 5 mg QHS ORAL 11/20/17 21:00 12/20/17 20:59 11/21/17 20:04 Ertapenem 1 gm/ Sodium Chloride 55 ml @ 110 mls/hr Q24H IVPB 11/22/17 11:00 11/27/17 10:59 11/23/17 11:53 Famotidine (Pepcid) 20 mg BEDTIME ORAL 11/20/17 21:00 12/20/17 20:59 11/21/17 20:03 Heparin Sodium (Porcine) (Heparin 5000 units/ml) 5,000 units EVERY 12 HOURS SUBQ 11/20/17 09:00 12/20/17 08:59 11/23/17 08:59 Lorazepam (Ativan) 2 mg Q4H PRN ORAL agitation 11/23/17 14:00 11/30/17 13:59 Mirtazapine (Remeron) 15 mg BEDTIME ORAL 11/20/17 21:00 12/20/17 20:59 11/21/17 20:04 Mupirocin (Bactroban Oint) 1 applic THREE TIMES A DAY TOPIC 11/22/17 18:00 11/27/17 17:59 11/23/17 13:00 Olanzapine (ZyPREXA) 2.5 mg DAILY ORAL 11/23/17 09:00 12/23/17 08:59 11/23/17 08:51 Olanzapine (ZyPREXA) 5 mg BEDTIME ORAL 11/22/17 21:00 12/22/17 20:59 Olanzapine (ZyPREXA) 5 mg Q4H PRN ORAL agitation 11/19/17 22:30 12/19/17 22:29 11/21/17 12:51 Patient Own Medication (Patient's Own Med) 1 ea DAILY ORAL 11/20/17 09:00 12/20/17 08:59 11/23/17 08:51 Phenytoin (Dilantin) 300 mg QHS ORAL 11/22/17 21:00 12/22/17 20:59 Maria G De León M.D. Nov 23, 2017 16:28
[2017-11-23] MEDS: Depakote 500mg tab ORAL SCH (18:18)
[2017-11-23 20:00] VITALS: BP 111/38
[2017-11-23] MEDS: Donepezil 5mg Tab ORAL SCH (20:32)
[2017-11-23] MEDS: Phenytoin 100mg cap ORAL SCH (20:32)
[2017-11-24] VITALS (7 sets, daily range): BP systolic 97–140; BP diastolic 35–79
[2017-11-24 07:46] LABS: BASOPHILS % (AUTO) 1.1 % (0.0-2.0); EOSINOPHILS % (AUTO) 0.4 % (0.0-3.0); HEMATOCRIT 29.7 % (37.0-47.0); HEMOGLOBIN 9.7 G/DL (12.0-16.0); MEAN CORPUSCULAR VOLUME 90 FL (80-99); MONOCYTES % (AUTO) 13.9 % (1.0-10.0); NEUTROPHILS % (AUTO) 69.6 % (45.0-75.0); PLATELET COUNT 216 K/UL (150-450); RED BLOOD COUNT 3.28 M/UL (4.20-5.40); RED CELL DISTRIBUTION WIDTH 11.3 % (11.6-14.8); WHITE BLOOD COUNT 10.3 K/UL (4.8-10.8)
[2017-11-24 08:15] LABS: ANION GAP 9 mmol/L (5-15); BLOOD UREA NITROGEN 44 mg/dL (7-18); CALCIUM 8.5 MG/DL (8.5-10.1); CARBON DIOXIDE 27 MMOL/L (21-32); CHLORIDE 103 MMOL/L (98-107); CREATININE 1.1 MG/DL (0.55-1.30); POTASSIUM 3.9 MMOL/L (3.5-5.1); SODIUM 139 MMOL/L (136-145)
--- NOTE | 2017-11-24 09:14 | General Progress Note ---
Assessment/Plan Status: stable Assessment/Plan 1. UTI - cont Ertapenam 1 gm IV daily. ID is following. D/C to [facility] today. 2. HTN - D/C norvasc 2.5 mg daily. cont Atenolol 50 mg daily. 3. 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 cont Dilantin 300 mg qhs. will taper down dilantin after IV abx is finished due to low valproic acid level and interaction with Ertapenam. 5. Generalized Weakness - cont PT and OT eval and txt. 6. GERD - on pepcid 20 mg daily. 7. Altered mental status 2nd to UTI and Dementia - cont IV abx and zyprexa for now. 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 10. LBP - improved. cont tylenol # 3 one po q 6 hrs prn for mod to severe pain. and tylenol 650 mg q 6 hrs prn for mild pain. Subjective Date patient seen: Nov 24, 2017 Constitutional: Reports: weakness HEENT: Reports: no symptoms Cardiovascular: Reports: no symptoms Respiratory: Reports: no symptoms Gastrointestinal/Abdominal: Reports: no symptoms Genitourinary: Reports: no symptoms Neurologic/Psychiatric: Reports: no symptoms Endocrine: Reports: no symptoms Hematologic/Lymphatic: Reports: no symptoms Allergies: Coded Allergies: No Known Allergies (Unverified , 08/09/13) Subjective This morning she is doing better. Her fever and WBC improved. she is on ertapenem IV now. No diarrhea. Objective Last 24 Hour Vital Signs Date Time Temp Pulse Resp B/P (MAP) Pulse Ox O2 Delivery O2 Flow Rate FiO2 11/24/17 08:00 96.8 60 17 116/39 (64) 94 96.8 11/24/17 04:30 68 137/58 (84) 95 11/24/17 04:00 98.2 49 17 97/35 (55) 94 98.2 11/24/17 00:00 98.1 55 17 129/61 (83) 98 98.1 11/23/17 21:00 Room Air 11/23/17 20:00 99.0 62 17 111/38 (62) 90 99.0 11/23/17 15:48 99.1 62 18 130/51 (77) 98 99.1 11/23/17 12:36 97.4 64 20 139/91 (107) 96 97.4 Intake and Output 11/23/17 11/24/17 19:00 07:00 Intake Total 535 ml 240 ml Balance 535 ml 240 ml Intake Oral 480 ml 240 ml IV Total 55 ml # Voids 2 Laboratory Tests 11/24/17 06:25: White Blood Count 10.3, Red Blood Count 3.28L, Hemoglobin 9.7L, Hematocrit 29.7L , Mean Corpuscular Volume 90, Mean Corpuscular Hemoglobin 29.5, Mean Corpuscular Hemoglobin Concent 32.6, Red Cell Distribution Width 11.3L, Platelet Count 216, Mean Platelet Volume 8.1, Neutrophils (%) (Auto) 69.6, Lymphocytes (%) (Auto) 15.0L, Monocytes (%) (Auto) 13.9H, Eosinophils (%) (Auto ) 0.4, Basophils (%) (Auto) 1.1, Sodium Level 139, Potassium Level 3.9, Chloride Level 103, Carbon Dioxide Level 27, Anion Gap 9, Blood Urea Nitrogen 44H, Creatinine 1.1, Estimat Glomerular Filtration Rate , Glucose Level 90, Calcium Level 8.5, Phenytoin (Dilantin) Level 1.5L Height (Feet): 5 Height (Inches): 3.00 Weight (Pounds): 189 General Appearance: no apparent distress, alert Neck: non-tender, supple Cardiovascular: normal rate, regular rhythm Respiratory/Chest: chest wall non-tender, lungs clear Abdomen: normal bowel sounds, non tender, soft Extremities: normal range of motion, non-tender Edema: no edema noted Arm (L), no edema noted Arm (R); 1+ Leg (L), 1+ Leg (R); no edema noted Pedal (L), no edema noted Pedal (R), no edema noted Generalized Neurologic: alert, oriented x 3, responsive Skin: warm/dry Lymphatic: normal anterior cervical (L), normal anterior cervical (R), normal posterior cervical (L), normal posterior cervical (R), normal submandibular (L) , normal submandibular (R), normal supraclavicular (L), normal supraclavicular ( R), normal axillary (L), normal axillary (R), normal inguinal (L), normal inguinal (R), normal other Addy Riggs MD Nov 24, 2017 09:14
[2017-11-24] MEDS ORDERED: DILANTIN100 MG ORAL (09:24)
[2017-11-24] MEDS ORDERED: DIVALPROEX SOD500 MG ORAL (09:24)
[2017-11-24] MEDS ORDERED: ACETAMINOPHEN325 M1 ORAL (09:24)
[2017-11-24] MEDS ORDERED: OLANZAPINE2.5 MG ORAL (09:24)
[2017-11-24] MEDS ORDERED: PLAVIX75 MG ORAL (09:24)
[2017-11-24] MEDS ORDERED: OLANZAPINE5 MG ORAL ×2 (09:24)
[2017-11-24] MEDS ORDERED: TYLENOL WITH C1 EACH ORAL (09:24)
[2017-11-24] MEDS ORDERED: MIRTAZAPINE15 M3 ORAL (09:24)
[2017-11-24] MEDS ORDERED: BACTROBAN 2% OI15 GM TOPIC (09:24)
[2017-11-24] MEDS ORDERED: FAMOTIDINE20 MG ORAL (09:24)
[2017-11-24] MEDS ORDERED: LIPITOR10 MG ORAL (09:24)
[2017-11-24] MEDS ORDERED: ATIVAN1 MG ORAL (09:24)
[2017-11-24] MEDS ORDERED: ARICEPT5 MG ORAL (09:24)
[2017-11-24] MEDS ORDERED: ATENOLOL50 MG ORAL (09:24)
[2017-11-24] MEDS: VASCULERA 630 MG ORAL SCH (09:33)
[2017-11-24] MEDS: Depakote 500mg tab ORAL SCH ×3 (09:33→17:41)
[2017-11-24] MEDS: OLANZapine 2.5mg tab ORAL SCH (09:33)
[2017-11-24] MEDS: Heparin 5000 units/ml inj SUBQ SCH ×2 (09:34→23:17)
[2017-11-24] MEDS: LORazepam 1mg tab ORAL PRN ×2 (09:36→14:11)
[2017-11-24] MEDS: Ertapenem 1 GM in NS 55 ML IVPB SCH (11:38)
--- NOTE | 2017-11-24 14:26 | General Progress Note ---
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 with behavioral dist depakote 500mg po tid provided ro/st zyprexa 5mg qhs start ativan prn Subjective Date patient seen: Nov 24, 2017 Neurologic/Psychiatric: Reports: anxiety Allergies: Coded Allergies: No Known Allergies (Unverified , 08/09/13) Subjective the pt is yelling and gets agitated Objective Last 24 Hour Vital Signs Date Time Temp Pulse Resp B/P (MAP) Pulse Ox O2 Delivery O2 Flow Rate FiO2 11/24/17 12:00 98.4 60 17 130/63 (85) 94 98.4 11/24/17 09:33 60 116/39 11/24/17 09:00 Room Air 11/24/17 08:00 96.8 60 17 116/39 (64) 94 96.8 11/24/17 04:30 68 137/58 (84) 95 11/24/17 04:00 98.2 49 17 97/35 (55) 94 98.2 11/24/17 00:00 98.1 55 17 129/61 (83) 98 98.1 11/23/17 21:00 Room Air 11/23/17 20:00 99.0 62 17 111/38 (62) 90 99.0 11/23/17 15:48 99.1 62 18 130/51 (77) 98 99.1 Intake and Output 11/23/17 11/24/17 19:00 07:00 Intake Total 535 ml 240 ml Balance 535 ml 240 ml Intake Oral 480 ml 240 ml IV Total 55 ml # Voids 2 Laboratory Tests 11/24/17 06:25: White Blood Count 10.3, Red Blood Count 3.28L, Hemoglobin 9.7L, Hematocrit 29.7L , Mean Corpuscular Volume 90, Mean Corpuscular Hemoglobin 29.5, Mean Corpuscular Hemoglobin Concent 32.6, Red Cell Distribution Width 11.3L, Platelet Count 216, Mean Platelet Volume 8.1, Neutrophils (%) (Auto) 69.6, Lymphocytes (%) (Auto) 15.0L, Monocytes (%) (Auto) 13.9H, Eosinophils (%) (Auto ) 0.4, Basophils (%) (Auto) 1.1, Sodium Level 139, Potassium Level 3.9, Chloride Level 103, Carbon Dioxide Level 27, Anion Gap 9, Blood Urea Nitrogen 44H, Creatinine 1.1, Estimat Glomerular Filtration Rate , Glucose Level 90, Calcium Level 8.5, Phenytoin (Dilantin) Level 1.5L Height (Feet): 5 Height (Inches): 3.00 Weight (Pounds): 189 Dayanna Luque MD Nov 24, 2017 14:26
--- NOTE | 2017-11-24 14:41 | Consultation ---
History of Present Illness General Date patient seen: Nov 24, 2017 Chief Complaint: General Complaint Reason for Consultation: sacral decubitus ulcer Present Illness HPI 87 year old female with multiple medical comorbidities recently admitted from nursing facility for medical care and management. Upon admission noted to have sacral wound requiring care. Surgery called to evaluate. patient seen, patient examined, chart reviewed. Patient alert and responsive. Poor historian. Allergies: Coded Allergies: No Known Allergies (Unverified , 08/09/13) Medication History Scheduled Amlodipine Besylate (Norvasc), 5 MG ORAL DAILY, (Reported) Aspirin* (Aspir-Low*), 81 MG PO DAILY, (Reported) Calcium Carbonate (Oyster Shell Calcium), 500 MG PO DAILY, (Reported) Citalopram Hydrobromide* (Celexa*), 20 MG ORAL DAILY, (Reported) Docusate Sodium (Doc-Q-Lace), 100 MG PO BID, (Reported) Donepezil Hcl (Aricept), 5 MG ORAL DAILY, (Reported) Famotidine (Pepcid), 20 MG ORAL BEDTIME, (Reported) Ibuprofen* (Motrin*), 600 MG ORAL FOUR TIMES A DAY, (Reported) Losartan/Hydrochlorothiazide 100-12.5 Tablet (Hyzaar 100-12.5 Tablet), 1 TAB ORAL DAILY, (Reported) Losartan/Hydrochlorothiazide 100-12.5 Tablet (Hyzaar 100-12.5 Tablet), 1 TAB ORAL DAILY, (Reported) Meloxicam* (Mobic*), 7.5 MG ORAL DAILY, (Reported) Meropenem (Meropenem), 1 GM IV EVERY 8 HOURS, (Reported) Mirtazapine (Remeron), 15 MG ORAL BEDTIME, (Reported) Olanzapine (Olanzapine), 2.5 MG ORAL DAILY, (Reported) Phenytoin (Dilantin), 100 MG ORAL QHS, (Reported) Rivastigmine Tartrate* (Exelon*), 1.5 MG ORAL TWICE A DAY, (Reported) Simvastatin (Zocor), 20 MG ORAL BEDTIME, (Reported) Simvastatin (Zocor), 20 MG ORAL BEDTIME, (Reported) Tolterodine Tartrate (Detrol La), 2 MG ORAL DAILY, (Reported) Topiramate* (Topamax*), 100 MG ORAL DAILY, (Reported) Scheduled PRN Hydrocodone Bit/Acetaminophen 5-325* ([place] 5-325*), 1 TAB ORAL Q6H PRN for For Pain Lactulose (Lactulose*), 30 ML ORAL BID PRN for constipation Loperamide HCl (Loperamide), 2 MG ORAL BID PRN for Diarrhea, (Reported) Meclizine Hcl* (Antivert*), 25 MG ORAL BID PRN for for dizziness, (Reported) Ondansetron (Zofran), 4 MG ORAL Q8H PRN for Nausea & Vomiting, (Reported) Polyethylene Glycol 3350* (Miralax*), 17 GM ORAL DAILY PRN for Constipation, ( Reported) Triamcinolone (Triamcinolone Acetonide), 1 EA APPLIC BID PRN for skin irritation , (Reported) Miscellaneous Medications Calcium Carbonate/Vitamin D3 ([place] 500+D Tablet), 1 EACH PO, (Reported) Dextromethorphan Hbr/Quinidine (Nuedexta 20-10 Mg Capsule), 1 EACH PO, (Reported ) Famotidine (Pepcid), 20 MG PO, (Reported) Folic Acid (Folic Acid), (Reported) Meropenem (Meropenem), 500 MG IV, (Reported) Valproate Sodium (Valproic Acid), 250 MG PO, (Reported) [voltaren gel 1 %], (Reported) Patient History Limited by: other History Provided By: Family Member, Medical Record, PMD Healthcare decision maker MADELINE CORMIER Resuscitation status Full Code Advanced Directive on File No Past Medical/Surgical History Past Medical/Surgical History: (1) Encounter for generalized patient complaints (2) Peritonsillar abscess (3) Peritonsillar abscess (4) Peritonsillar abscess (5) Fever (6) Gastroenteritis (7) Weakness (8) Sepsis (9) UTI (urinary tract infection) (10) Altered mental status (11) Pneumonia (12) Fall (13) NORMA (acute kidney injury) (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 (16) Back contusion (17) Colonization with VRE (vancomycin-resistant enterococcus) (18) MRSA (methicillin resistant Staphylococcus aureus) colonization (19) Pressure ulcer Review of Systems All Other Systems: negative except mentioned in HPI Physical Exam General Appearance: no apparent distress Lines, tubes and drains: peripheral HEENT: normocephalic, mucous membranes moist Neck: normal inspection Respiratory/Chest: lungs clear, normal breath sounds, no respiratory distress, no accessory muscle use Cardiovascular/Chest: normal rate Abdomen: normal bowel sounds, soft, no organomegaly, no mass Extremities: non-tender, normal inspection Skin Exam: other Neurologic: alert, responsive Last 24 Hour Vital Signs Date Time Temp Pulse Resp B/P (MAP) Pulse Ox O2 Delivery O2 Flow Rate FiO2 11/24/17 12:00 98.4 60 17 130/63 (85) 94 98.4 11/24/17 09:33 60 116/39 11/24/17 09:00 Room Air 11/24/17 08:00 96.8 60 17 116/39 (64) 94 96.8 11/24/17 04:30 68 137/58 (84) 95 11/24/17 04:00 98.2 49 17 97/35 (55) 94 98.2 11/24/17 00:00 98.1 55 17 129/61 (83) 98 98.1 11/23/17 21:00 Room Air 11/23/17 20:00 99.0 62 17 111/38 (62) 90 99.0 11/23/17 15:48 99.1 62 18 130/51 (77) 98 99.1 Intake and Output 11/23/17 11/24/17 19:00 07:00 Intake Total 535 ml 240 ml Balance 535 ml 240 ml Intake Oral 480 ml 240 ml IV Total 55 ml # Voids 2 Laboratory Tests Test 11/24/17 06:25 White Blood Count 10.3 K/UL (4.8-10.8) Red Blood Count 3.28 M/UL (4.20-5.40) L Hemoglobin 9.7 G/DL (12.0-16.0) L Hematocrit 29.7 % (37.0-47.0) L Mean Corpuscular Volume 90 FL (80-99) Mean Corpuscular Hemoglobin 29.5 PG (27.0-31.0) Mean Corpuscular Hemoglobin Concent 32.6 G/DL (32.0-36.0) Red Cell Distribution Width 11.3 % (11.6-14.8) L Platelet Count 216 K/UL (150-450) Mean Platelet Volume 8.1 FL (6.5-10.1) Neutrophils (%) (Auto) 69.6 % (45.0-75.0) Lymphocytes (%) (Auto) 15.0 % (20.0-45.0) L Monocytes (%) (Auto) 13.9 % (1.0-10.0) H Eosinophils (%) (Auto) 0.4 % (0.0-3.0) Basophils (%) (Auto) 1.1 % (0.0-2.0) Sodium Level 139 MMOL/L (136-145) Potassium Level 3.9 MMOL/L (3.5-5.1) Chloride Level 103 MMOL/L (98-107) Carbon Dioxide Level 27 MMOL/L (21-32) Anion Gap 9 mmol/L (5-15) Blood Urea Nitrogen 44 mg/dL (7-18) H Creatinine 1.1 MG/DL (0.55-1.30) Estimat Glomerular Filtration Rate mL/min (>60) Glucose Level 90 MG/DL (74-106) Calcium Level 8.5 MG/DL (8.5-10.1) Phenytoin (Dilantin) Level 1.5 ug/mL (10-20) L Height (Feet): 5 Height (Inches): 3.00 Weight (Pounds): 189 Medications Current Medications Medications (Trade) Dose Ordered Sig/Kelly Route PRN Reason Start Time Stop Time Status Last Admin Dose Admin Acetaminophen (Tylenol) 650 mg Q6H PRN ORAL Mild Pain/Temp > 100.5 11/22/17 09:15 12/22/17 09:14 Acetaminophen/ Codeine Phosphate (Tylenol #3) 1 tab Q6H PRN ORAL Severe Pain (Pain Scale 7-10) 11/22/17 09:15 11/29/17 09:14 11/22/17 10:00 Atenolol (Tenormin) 50 mg DAILY ORAL 11/20/17 09:00 12/20/17 08:59 11/24/17 09:33 Atorvastatin Calcium (Lipitor) 20 mg BEDTIME ORAL 11/20/17 21:00 12/20/17 20:59 11/23/17 20:32 Clopidogrel Bisulfate (Plavix) 75 mg DAILY ORAL 11/20/17 09:00 12/20/17 08:59 11/24/17 09:33 Divalproex Sodium (Depakote) 500 mg TID ORAL 11/23/17 18:00 12/23/17 17:59 11/24/17 14:11 Donepezil HCl (Aricept) 5 mg QHS ORAL 11/20/17 21:00 12/20/17 20:59 11/23/17 20:32 Ertapenem 1 gm/ Sodium Chloride 55 ml @ 110 mls/hr Q24H IVPB 11/22/17 11:00 11/27/17 10:59 11/24/17 11:38 Famotidine (Pepcid) 20 mg BEDTIME ORAL 11/20/17 21:00 12/20/17 20:59 11/23/17 20:32 Heparin Sodium (Porcine) (Heparin 5000 units/ml) 5,000 units EVERY 12 HOURS SUBQ 11/20/17 09:00 12/20/17 08:59 11/24/17 09:34 Lorazepam (Ativan) 2 mg Q4H PRN ORAL agitation 11/23/17 14:00 11/30/17 13:59 11/24/17 14:11 Mirtazapine (Remeron) 15 mg BEDTIME ORAL 11/20/17 21:00 12/20/17 20:59 11/23/17 20:32 Mupirocin (Bactroban Oint) 1 applic THREE TIMES A DAY TOPIC 11/22/17 18:00 11/27/17 17:59 11/24/17 14:11 Olanzapine (ZyPREXA) 2.5 mg DAILY ORAL 11/23/17 09:00 12/23/17 08:59 11/24/17 09:33 Olanzapine (ZyPREXA) 5 mg BEDTIME ORAL 11/22/17 21:00 12/22/17 20:59 11/23/17 20:32 Olanzapine (ZyPREXA) 5 mg Q4H PRN ORAL agitation 11/19/17 22:30 12/19/17 22:29 11/21/17 12:51 Patient Own Medication (Patient's Own Med) 1 ea DAILY ORAL 11/20/17 09:00 12/20/17 08:59 11/24/17 09:33 Phenytoin (Dilantin) 300 mg QHS ORAL 11/22/17 21:00 12/22/17 20:59 11/23/17 20:32 Assessment/Plan Problem List: (1) Pressure ulcer Assessment & Plan: 87 year old female with unstageable decubitus sacral ulcer. chart reviewed and note documented from nursing facility but from report, family states that it was noted for this for some time now and is being cared for. partial thickness skin breakdown in midline buttock / sacral midline. area of DTI noted laterally. no dermal breakdown noted. no infection. no drainage. DTPI on heels noted. wounds chronic and present upon admission. seems to have been cared for prior and currently being cared for no acute surgical intervention necessary -keep sacral area clean, apply foam dressing and skin protectant -foam dressing to heels -heel protectors -pressure release mattress -turn q2h thank you ICD Codes: L89.90 - Pressure ulcer of unspecified site, unspecified stage SNOMED: [id number] Qualifiers: Status: stable JorjeCarlos Nov 24, 2017 14:41
--- NOTE | 2017-11-24 15:16 | Infectious Diseases Prog Note ---
Assessment/Plan Problems: (1) UTI (urinary tract infection) Assessment & Plan: due to MDR Morganella morgagnii , continue ertapenem for 10 days , keep in contact isolation for now (2) Sepsis Assessment & Plan: with leukocytosis , due to the above , monitor blood culture, continue ertapenem empirically (3) Weakness Assessment & Plan: due to the above , continue PT/OT . (4) Fever Assessment & Plan: due to the above improving, continue antibiotics and tylenol (5) MRSA (methicillin resistant Staphylococcus aureus) colonization Assessment & Plan: continue bactroban for five days , keep in contact isolation (6) Colonization with VRE (vancomycin-resistant enterococcus) Assessment & Plan: keep in contact isolation (7) Sacral decubitus ulcer Assessment & Plan: continue off loading , and local wound care as per hospital protocol Subjective Constitutional: Reports: fatigue HEENT: Reports: no symptoms Respiratory: Reports: no symptoms Breasts: Reports: no symptoms Cardiovascular: Reports: no symptoms Gastrointestinal/Abdominal: Reports: no symptoms Genitourinary: Reports: no symptoms Neurologic: Reports: weakness Psychiatric: Reports: no symptoms Skin: Reports: no symptoms Endocrine: Reports: no symptoms Hematologic: Reports: no symptoms Musculoskeletal: Reports: pain, swelling, other - left heel skin redness with edema and deep tissue injury Allergies: Coded Allergies: No Known Allergies (Unverified , 08/09/13) Objective Vital Signs Last 24 Hour Vital Signs Date Time Temp Pulse Resp B/P (MAP) Pulse Ox O2 Delivery O2 Flow Rate FiO2 11/24/17 12:00 98.4 60 17 130/63 (85) 94 98.4 11/24/17 09:33 60 116/39 11/24/17 09:00 Room Air 11/24/17 08:00 96.8 60 17 116/39 (64) 94 96.8 11/24/17 04:30 68 137/58 (84) 95 11/24/17 04:00 98.2 49 17 97/35 (55) 94 98.2 11/24/17 00:00 98.1 55 17 129/61 (83) 98 98.1 11/23/17 21:00 Room Air 11/23/17 20:00 99.0 62 17 111/38 (62) 90 99.0 11/23/17 15:48 99.1 62 18 130/51 (77) 98 99.1 Height (Feet): 5 Height (Inches): 3.00 Weight (Pounds): 189 General Appearance: WD/WN, no acute distress HEENT: normocephalic, atraumatic, anicteric, mucous membranes moist, PERRL Respiratory/Chest: chest wall non-tender, no respiratory distress, no accessory muscle use, decreased breath sounds, crackles/rales Cardiovascular: normal peripheral pulses, normal rate, regular rhythm, no gallop/murmur, no JVD Abdomen: normal bowel sounds, soft, non tender, no organomegaly, non distended , no mass, no scars Genitourinary: normal external genitalia Extremities: no cyanosis, no clubbing Skin: no rash, no lesions, ulcers - sacral skin wound Neurologic/Psychiatric: alert, responsive Lymphatic: no neck adenopathy, no groin adenopathy Musculoskeletal: normal muscle bulk, other - left heel skin edema with redness Microbiology Date/Time Source Procedure Growth Status 11/22/17 21:15 Blood Blood Culture - Preliminary NO GROWTH AFTER 24 HOURS Resulted 11/22/17 21:00 Blood Blood Culture - Preliminary NO GROWTH AFTER 24 HOURS Resulted Laboratory Tests Test 11/24/17 06:25 White Blood Count 10.3 K/UL (4.8-10.8) Red Blood Count 3.28 M/UL (4.20-5.40) L Hemoglobin 9.7 G/DL (12.0-16.0) L Hematocrit 29.7 % (37.0-47.0) L Mean Corpuscular Volume 90 FL (80-99) Mean Corpuscular Hemoglobin 29.5 PG (27.0-31.0) Mean Corpuscular Hemoglobin Concent 32.6 G/DL (32.0-36.0) Red Cell Distribution Width 11.3 % (11.6-14.8) L Platelet Count 216 K/UL (150-450) Mean Platelet Volume 8.1 FL (6.5-10.1) Neutrophils (%) (Auto) 69.6 % (45.0-75.0) Lymphocytes (%) (Auto) 15.0 % (20.0-45.0) L Monocytes (%) (Auto) 13.9 % (1.0-10.0) H Eosinophils (%) (Auto) 0.4 % (0.0-3.0) Basophils (%) (Auto) 1.1 % (0.0-2.0) Sodium Level 139 MMOL/L (136-145) Potassium Level 3.9 MMOL/L (3.5-5.1) Chloride Level 103 MMOL/L (98-107) Carbon Dioxide Level 27 MMOL/L (21-32) Anion Gap 9 mmol/L (5-15) Blood Urea Nitrogen 44 mg/dL (7-18) H Creatinine 1.1 MG/DL (0.55-1.30) Estimat Glomerular Filtration Rate mL/min (>60) Glucose Level 90 MG/DL (74-106) Calcium Level 8.5 MG/DL (8.5-10.1) Phenytoin (Dilantin) Level 1.5 ug/mL (10-20) L Current Medications Medications (Trade) Dose Ordered Sig/Kelly Route PRN Reason Start Time Stop Time Status Last Admin Dose Admin Acetaminophen (Tylenol) 650 mg Q6H PRN ORAL Mild Pain/Temp > 100.5 11/22/17 09:15 12/22/17 09:14 Acetaminophen/ Codeine Phosphate (Tylenol #3) 1 tab Q6H PRN ORAL Severe Pain (Pain Scale 7-10) 11/22/17 09:15 11/29/17 09:14 11/22/17 10:00 Atenolol (Tenormin) 50 mg DAILY ORAL 11/20/17 09:00 12/20/17 08:59 11/24/17 09:33 Atorvastatin Calcium (Lipitor) 20 mg BEDTIME ORAL 11/20/17 21:00 12/20/17 20:59 11/23/17 20:32 Clopidogrel Bisulfate (Plavix) 75 mg DAILY ORAL 11/20/17 09:00 12/20/17 08:59 11/24/17 09:33 Divalproex Sodium (Depakote) 500 mg TID ORAL 11/23/17 18:00 12/23/17 17:59 11/24/17 14:11 Donepezil HCl (Aricept) 5 mg QHS ORAL 11/20/17 21:00 12/20/17 20:59 11/23/17 20:32 Ertapenem 1 gm/ Sodium Chloride 55 ml @ 110 mls/hr Q24H IVPB 11/22/17 11:00 11/27/17 10:59 11/24/17 11:38 Famotidine (Pepcid) 20 mg BEDTIME ORAL 11/20/17 21:00 12/20/17 20:59 11/23/17 20:32 Heparin Sodium (Porcine) (Heparin 5000 units/ml) 5,000 units EVERY 12 HOURS SUBQ 11/20/17 09:00 12/20/17 08:59 11/24/17 09:34 Lorazepam (Ativan) 2 mg Q4H PRN ORAL agitation 11/23/17 14:00 11/30/17 13:59 11/24/17 14:11 Mirtazapine (Remeron) 15 mg BEDTIME ORAL 11/20/17 21:00 12/20/17 20:59 11/23/17 20:32 Mupirocin (Bactroban Oint) 1 applic THREE TIMES A DAY TOPIC 11/22/17 18:00 11/27/17 17:59 11/24/17 14:11 Olanzapine (ZyPREXA) 2.5 mg DAILY ORAL 11/23/17 09:00 12/23/17 08:59 11/24/17 09:33 Olanzapine (ZyPREXA) 5 mg BEDTIME ORAL 11/22/17 21:00 12/22/17 20:59 11/23/17 20:32 Olanzapine (ZyPREXA) 5 mg Q4H PRN ORAL agitation 11/19/17 22:30 12/19/17 22:29 11/21/17 12:51 Patient Own Medication (Patient's Own Med) 1 ea DAILY ORAL 11/20/17 09:00 12/20/17 08:59 11/24/17 09:33 Phenytoin (Dilantin) 300 mg QHS ORAL 11/22/17 21:00 12/22/17 20:59 11/23/17 20:32 Maria G De León M.D. Nov 24, 2017 15:16
[2017-11-24] MEDS ORDERED: INVANZ1 GM IVPB (15:40)
[2017-11-24] MEDS: Donepezil 5mg Tab ORAL SCH (23:15)
[2017-11-24] MEDS: Phenytoin 100mg cap ORAL SCH (23:17)
[2017-11-25] VITALS: BP 143/59
[2017-11-25 04:00] VITALS: BP 127/98
[2017-11-25 08:00] VITALS: BP 147/98
[2017-11-25] MEDS: VASCULERA 630 MG ORAL SCH (08:37)
[2017-11-25] MEDS: OLANZapine 2.5mg tab ORAL SCH (08:37)
[2017-11-25] MEDS: Heparin 5000 units/ml inj SUBQ SCH ×2 (08:48→21:47)
--- NOTE | 2017-11-25 08:58 | General Progress Note ---
Assessment/Plan Status: stable Assessment/Plan 1. UTI - cont Ertapenam 1 gm IV daily. ID is following. awaiting placement to SNF. 2. HTN - restart norvasc 5 mg daily hold for sbp less than 110. cont Atenolol 50 mg daily. 3. 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 cont Dilantin 300 mg qhs. will taper down dilantin after IV abx is finished due to low valproic acid level and interaction with Ertapenam. 5. Generalized Weakness - cont PT and OT eval and txt. 6. GERD - on pepcid 20 mg daily. 7. Altered mental status 2nd to UTI and Dementia - cont IV abx and zyprexa for now. 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 10. LBP - improved. cont tylenol # 3 one po q 6 hrs prn for mod to severe pain. and tylenol 650 mg q 6 hrs prn for mild pain. Subjective Date patient seen: Nov 25, 2017 Time patient seen: 08:30 Constitutional: Reports: weakness HEENT: Reports: no symptoms Cardiovascular: Reports: no symptoms Respiratory: Reports: no symptoms Gastrointestinal/Abdominal: Reports: no symptoms Genitourinary: Reports: no symptoms Neurologic/Psychiatric: Reports: no symptoms Endocrine: Reports: no symptoms Hematologic/Lymphatic: Reports: no symptoms Allergies: Coded Allergies: No Known Allergies (Unverified , 08/09/13) Subjective This morning she is doing better. No sob or chest pain. she is on ertapenem IV now. Objective Last 24 Hour Vital Signs Date Time Temp Pulse Resp B/P (MAP) Pulse Ox O2 Delivery O2 Flow Rate FiO2 11/25/17 08:37 64 147/98 11/25/17 08:00 98.2 64 18 147/98 (114) 95 98.2 11/25/17 04:00 98.7 76 18 127/98 (108) 95 98.7 11/25/17 00:00 97.7 67 20 143/59 (87) 93 97.7 11/24/17 21:00 Nasal Cannula 2.0 11/24/17 20:00 97.2 64 18 140/56 (84) 92 97.2 11/24/17 16:00 97.8 62 17 134/79 (97) 94 97.8 11/24/17 12:00 98.4 60 17 130/63 (85) 94 98.4 11/24/17 09:33 60 116/39 11/24/17 09:00 Room Air Intake and Output 11/24/17 11/25/17 19:00 07:00 # Voids 5 Height (Feet): 5 Height (Inches): 3.00 Weight (Pounds): 189 General Appearance: no apparent distress, alert Neck: non-tender, supple Cardiovascular: normal peripheral pulses, normal rate, regular rhythm Respiratory/Chest: chest wall non-tender, lungs clear, normal breath sounds Abdomen: normal bowel sounds, non tender, soft Extremities: normal range of motion, non-tender Edema: no edema noted Arm (L), no edema noted Arm (R), no edema noted Leg (L), no edema noted Leg (R), no edema noted Pedal (L), no edema noted Pedal (R), no edema noted Generalized Neurologic: alert, oriented x 3, responsive Skin: warm/dry Lymphatic: normal anterior cervical (L), normal anterior cervical (R), normal posterior cervical (L), normal posterior cervical (R), normal submandibular (L) , normal submandibular (R), normal supraclavicular (L), normal supraclavicular ( R), normal axillary (L), normal axillary (R), normal inguinal (L), normal inguinal (R), normal other Addy Riggs MD Nov 25, 2017 08:58
[2017-11-25] MEDS: Depakote 500mg tab ORAL SCH ×3 (09:09→18:00)
[2017-11-25] MEDS ORDERED: Fleet's Enema 133ml RECTAL SCH (10:13)
[2017-11-25] MEDS: Ertapenem 1 GM in NS 55 ML IVPB SCH (11:27)
[2017-11-25 12:00] VITALS: BP 135/60
--- NOTE | 2017-11-25 15:16 | General Surgery Progress Note ---
General Surgery-Progress Note Subjective Additional Comments resting comfortable. being turned side to side. Objective Last 24 Hour Vital Signs Date Time Temp Pulse Resp B/P (MAP) Pulse Ox O2 Delivery O2 Flow Rate FiO2 11/25/17 12:00 98.3 76 18 135/60 (85) 95 98.3 11/25/17 09:58 64 147/98 11/25/17 09:00 Nasal Cannula 2.0 11/25/17 08:37 64 147/98 11/25/17 08:00 98.2 64 18 147/98 (114) 95 98.2 11/25/17 04:00 98.7 76 18 127/98 (108) 95 98.7 11/25/17 00:00 97.7 67 20 143/59 (87) 93 97.7 11/24/17 21:00 Nasal Cannula 2.0 11/24/17 20:00 97.2 64 18 140/56 (84) 92 97.2 11/24/17 16:00 97.8 62 17 134/79 (97) 94 97.8 I&O Intake and Output 11/24/17 11/25/17 19:00 07:00 # Voids 5 Dressing: other Wound: other Drains: none Cardiovascular: RSR Respiratory: clear Abdomen: soft, non-tender, present bowel sounds Extremities: other Plan Problems: (1) Pressure ulcer Assessment & Plan: 87 year old female with unstageable decubitus sacral ulcer. chart reviewed and note documented from nursing facility but from report, family states that it was noted for this for some time now and is being cared for. partial thickness skin breakdown in midline buttock / sacral midline. area of DTI noted laterally. no dermal breakdown noted. no infection. no drainage. maroon indurated area L buttocks (L)3.2cm x(W)1.9cm non-blanchable erythema noted to Sacrum R and L buttocks with Partial thickness slit in sacral cleft with denudement (L)5.5cm x (W)1.2cm. non-blanching erythema sacrum,R and L buttocks. Serous Blister noted to L heel (L)6cm x (W)7.5cm. wounds chronic and present upon admission. seems to have been cared for prior and currently being cared for no acute surgical intervention necessary -keep sacral area clean, apply foam dressing and skin protectant -foam dressing to heels -heel protectors -pressure release mattress -turn q2h thank you Carlos Recinos Nov 25, 2017 15:16
[2017-11-25 16:00] VITALS: BP 127/60
--- NOTE | 2017-11-25 16:30 | Discharge Summary ---
DATE OF ADMISSION: 11/19/2017 DATE OF DISCHARGE: 11/27/2017 CHIEF COMPLAINT: Altered mental status. HOSPITAL COURSE: This is an 87-year-old [place] female, who was brought in by paramedics for a complaint of increased agitation and outburst with altered mental status. While in the hospital, the patient was found to have urinary tract infection and she was originally started on Rocephin 1 g IV for urinary tract infection. However, her urine cultures grew Morganella morganii and her IV antibiotic was switched from Rocephin to ertapenem because she was not responding to the antibiotic. While on ertapenem 1 g daily, the patient responded well and white count and fever has resolved. The patient also had questionable sepsis with leukocytosis and blood culture was done. Blood culture for 24-hours was negative for and did not grew anything. The patient also had a long history of seizure disorder and generalized weakness and PT/OT was ordered. The patient was restarted on Dilantin 300 mg daily because valproic acid was interacting with IV antibiotic and the level of valproic acid was subtherapeutic and we will increase increase the Dilantin for now until the intravenous antibiotic is finished. The patient also showed methicillin-resistant Staphylococcus aureus colonization in the nares and was started on Bactroban for 5 days. She also had colonization of vancomycin-resistant enterococcus in the rectum and ID also saw the patient and she was continued on IV antibiotic ertapenem for the urinary tract infection and Bactroban for methicillin-resistant Staphylococcus aureus. She was also started on Vancomycin IV for coverage of staph from sacral and heal wound. DISCHARGE DIAGNOSES: 1. Urinary tract infection. 2. Hypertension. 3. Hyperlipidemia. 4. Seizure disorder. 5. Generalized weakness. 6. Gastroesophageal reflux disease. 7. Altered mental status secondary to urinary tract infection with encephalopathy and dementia. 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 10. Low back pain. 11. Sacral and Heal ulcer DISCHARGE MEDICATIONS: Includes: 1. Tylenol No. 3 one q.6 hours p.r.n. for [id number] pain. 2. Tylenol 650 q.6 hours p.r.n. for mild pain. 3. Atenolol 50 mg daily. 4. Atorvastatin or Lipitor 20 mg p.o. at bedtime. 5. Plavix 75 mg daily. 6. Divalproex sodium 500 mg t.i.d. 7. Aricept 5 mg at bedtime. 8. Invanz 1 g IV q.24 hours for 4 days. 9. Famotidine 20 mg at bedtime. 10. Ativan 2 mg q.4 hours p.r.n. 11. Mirtazapine 15 mg at night. 12. Vancomycin IV for 13 days by pharmacy dosing 13. Olanzapine 5 mg q.4 hours p.r.n. and olanzapine 5 mg at bedtime and olanzapine 2.5 mg p.o. daily. 14. Dilantin 400 mg at bedtime. 15. Aspirin 81 mg daily. 16. Calcium carbonate 500 daily. 17. Colace 100 b.i.d. 18. Folic acid 1 mg daily. 19. Lactulose 30 mL p.o. b.i.d. p.r.n. for constipation. 20. Loperamide 2 mg b.i.d. p.r.n. for diarrhea. DISPOSITION: The patient will be discharged back to the [facility]. We will see the patient in a few days at the rehab. Addy Riggs M.D. DR: DYLON JOB#: [id number] CC: PETER
--- NOTE | 2017-11-25 17:16 | Infectious Diseases Prog Note ---
Assessment/Plan Problems: (1) UTI (urinary tract infection) Assessment & Plan: due to MDR Morganella morgagnii , continue ertapenem for 10 days , keep in contact isolation for now (2) Sepsis Assessment & Plan: with leukocytosis , due to the above , monitor blood culture, continue ertapenem empirically (3) Weakness Assessment & Plan: due to the above , continue PT/OT . (4) Fever Assessment & Plan: due to the above improving, continue antibiotics and tylenol (5) MRSA (methicillin resistant Staphylococcus aureus) colonization Assessment & Plan: continue bactroban for five days , keep in contact isolation (6) Colonization with VRE (vancomycin-resistant enterococcus) Assessment & Plan: keep in contact isolation (7) Sacral decubitus ulcer Assessment & Plan: continue off loading , and local wound care as per hospital protocol Subjective ROS Limited/Unobtainable: Yes Allergies: Coded Allergies: No Known Allergies (Unverified , 08/09/13) Subjective she was lying in bed, awake and comfortable, afebrile, no cough or SOB, no diarrhea Objective Vital Signs Last 24 Hour Vital Signs Date Time Temp Pulse Resp B/P (MAP) Pulse Ox O2 Delivery O2 Flow Rate FiO2 11/25/17 16:00 98.7 76 18 127/60 (82) 95 98.7 11/25/17 12:00 98.3 76 18 135/60 (85) 95 98.3 11/25/17 09:58 64 147/98 11/25/17 09:00 Nasal Cannula 2.0 11/25/17 08:37 64 147/98 11/25/17 08:00 98.2 64 18 147/98 (114) 95 98.2 11/25/17 04:00 98.7 76 18 127/98 (108) 95 98.7 11/25/17 00:00 97.7 67 20 143/59 (87) 93 97.7 11/24/17 21:00 Nasal Cannula 2.0 11/24/17 20:00 97.2 64 18 140/56 (84) 92 97.2 Height (Feet): 5 Height (Inches): 3.00 Weight (Pounds): 189 General Appearance: WD/WN, no acute distress HEENT: normocephalic, atraumatic, anicteric, mucous membranes moist, PERRL Respiratory/Chest: chest wall non-tender, lungs clear, no respiratory distress , no accessory muscle use, decreased breath sounds Cardiovascular: normal peripheral pulses, normal rate, regular rhythm, no gallop/murmur, no JVD Abdomen: normal bowel sounds, soft, non tender, no organomegaly, non distended , no mass, no scars Genitourinary: normal external genitalia Extremities: no cyanosis, no clubbing, other - heel deep tissue injury with redness Skin: no rash, no lesions, ulcers - of the sacrum , not infected Neurologic/Psychiatric: alert, responsive Lymphatic: no neck adenopathy, no groin adenopathy Musculoskeletal: normal muscle bulk, no effusion Microbiology Date/Time Source Procedure Growth Status 11/22/17 21:15 Blood Blood Culture - Preliminary NO GROWTH AFTER 48 HOURS Resulted 11/22/17 21:00 Blood Blood Culture - Preliminary NO GROWTH AFTER 48 HOURS Resulted Current Medications Medications (Trade) Dose Ordered Sig/Kelly Route PRN Reason Start Time Stop Time Status Last Admin Dose Admin Acetaminophen (Tylenol) 650 mg Q6H PRN ORAL Mild Pain/Temp > 100.5 11/22/17 09:15 12/22/17 09:14 Acetaminophen/ Codeine Phosphate (Tylenol #3) 1 tab Q6H PRN ORAL Severe Pain (Pain Scale 7-10) 11/22/17 09:15 11/29/17 09:14 11/22/17 10:00 Amlodipine Besylate (Norvasc) 5 mg DAILY ORAL 11/25/17 09:00 12/25/17 08:59 11/25/17 09:58 Atenolol (Tenormin) 50 mg DAILY ORAL 11/20/17 09:00 12/20/17 08:59 11/25/17 08:37 Atorvastatin Calcium (Lipitor) 20 mg BEDTIME ORAL 11/20/17 21:00 12/20/17 20:59 11/24/17 23:16 Clopidogrel Bisulfate (Plavix) 75 mg DAILY ORAL 11/20/17 09:00 12/20/17 08:59 11/25/17 08:37 Divalproex Sodium (Depakote) 500 mg TID ORAL 11/23/17 18:00 12/23/17 17:59 11/25/17 14:13 Donepezil HCl (Aricept) 5 mg QHS ORAL 11/20/17 21:00 12/20/17 20:59 11/24/17 23:15 Ertapenem 1 gm/ Sodium Chloride 55 ml @ 110 mls/hr Q24H IVPB 11/22/17 11:00 11/27/17 10:59 11/25/17 11:27 Famotidine (Pepcid) 20 mg BEDTIME ORAL 11/20/17 21:00 12/20/17 20:59 11/24/17 23:15 Heparin Sodium (Porcine) (Heparin 5000 units/ml) 5,000 units EVERY 12 HOURS SUBQ 11/20/17 09:00 12/20/17 08:59 11/25/17 08:48 Lorazepam (Ativan) 2 mg Q4H PRN ORAL agitation 11/23/17 14:00 11/30/17 13:59 11/24/17 14:11 Mirtazapine (Remeron) 15 mg BEDTIME ORAL 11/20/17 21:00 12/20/17 20:59 11/24/17 23:15 Mupirocin (Bactroban Oint) 1 applic THREE TIMES A DAY TOPIC 11/22/17 18:00 11/27/17 17:59 11/25/17 14:14 Olanzapine (ZyPREXA) 2.5 mg DAILY ORAL 11/23/17 09:00 12/23/17 08:59 11/25/17 08:37 Olanzapine (ZyPREXA) 5 mg BEDTIME ORAL 11/22/17 21:00 12/22/17 20:59 11/24/17 23:16 Olanzapine (ZyPREXA) 5 mg Q4H PRN ORAL agitation 11/19/17 22:30 12/19/17 22:29 11/21/17 12:51 Patient Own Medication (Patient's Own Med) 1 ea DAILY ORAL 11/20/17 09:00 12/20/17 08:59 11/25/17 08:37 Phenytoin (Dilantin) 300 mg QHS ORAL 11/22/17 21:00 12/22/17 20:59 11/24/17 23:17 Maria G De León M.D. Nov 25, 2017 17:16
[2017-11-25 20:00] VITALS: BP 159/69
[2017-11-25] MEDS: Phenytoin 100mg cap ORAL SCH (21:34)
[2017-11-25] MEDS: Donepezil 5mg Tab ORAL SCH (21:35)
--- NOTE | 2017-11-25 22:10 | General Progress Note ---
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 does not elaborate and does not know the date year or city Objective Last 24 Hour Vital Signs Date Time Temp Pulse Resp B/P (MAP) Pulse Ox O2 Delivery O2 Flow Rate FiO2 11/25/17 16:00 98.7 76 18 127/60 (82) 95 98.7 11/25/17 12:00 98.3 76 18 135/60 (85) 95 98.3 11/25/17 09:58 64 147/98 11/25/17 09:00 Nasal Cannula 2.0 11/25/17 08:37 64 147/98 11/25/17 08:00 98.2 64 18 147/98 (114) 95 98.2 11/25/17 04:00 98.7 76 18 127/98 (108) 95 98.7 11/25/17 00:00 97.7 67 20 143/59 (87) 93 97.7 Intake and Output 11/24/17 11/25/17 19:00 07:00 # Voids 5 Height (Feet): 5 Height (Inches): 3.00 Weight (Pounds): 189 General Appearance: alert, agitated Dayanna Luque MD Nov 25, 2017 22:10
[2017-11-26] VITALS (8 sets, daily range): BP systolic 104–153; BP diastolic 47–69
--- NOTE | 2017-11-26 08:53 | General Progress Note ---
Assessment/Plan Status: stable Assessment/Plan 1. UTI - cont Ertapenam 1 gm IV daily. ID is following. awaiting placement to SNF. 2. HTN - cont norvasc 5 mg daily hold for sbp less than 110. cont Atenolol 50 mg daily. 3. 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 cont Dilantin 400 mg qhs. awaiting dilantin and valproic acid levels. will taper down dilantin after IV abx is finished due to low valproic acid level and interaction with Ertapenam. 5. Generalized Weakness - cont PT and OT eval and txt. 6. GERD - on pepcid 20 mg daily. 7. Altered mental status 2nd to UTI and Dementia - cont IV abx and zyprexa for now. 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 10. LBP - improved. cont tylenol # 3 one po q 6 hrs prn for mod to severe pain. and tylenol 650 mg q 6 hrs prn for mild pain. 11. Sacral ulcer and heal ulcer - cont wound care. Subjective Date patient seen: Nov 26, 2017 Time patient seen: 08:35 Constitutional: Reports: weakness HEENT: Reports: no symptoms Cardiovascular: Reports: no symptoms Respiratory: Reports: no symptoms Gastrointestinal/Abdominal: Reports: no symptoms Genitourinary: Reports: no symptoms Neurologic/Psychiatric: Reports: no symptoms Endocrine: Reports: no symptoms Hematologic/Lymphatic: Reports: no symptoms Allergies: Coded Allergies: No Known Allergies (Unverified , 08/09/13) Subjective This morning she is doing better. No sob or chest pain. she is on ertapenem IV now. afebrile. Objective Last 24 Hour Vital Signs Date Time Temp Pulse Resp B/P (MAP) Pulse Ox O2 Delivery O2 Flow Rate FiO2 11/26/17 04:00 98.9 70 20 140/50 (80) 91 98.9 11/26/17 00:00 99.1 81 22 147/68 (94) 93 99.1 11/25/17 21:00 Nasal Cannula 2.0 11/25/17 20:00 98.8 73 20 159/69 (99) 93 98.8 11/25/17 16:00 98.7 76 18 127/60 (82) 95 98.7 11/25/17 12:00 98.3 76 18 135/60 (85) 95 98.3 11/25/17 09:58 64 147/98 11/25/17 09:00 Nasal Cannula 2.0 Intake and Output 11/25/17 11/26/17 19:00 07:00 Intake Total 120 ml 240 ml Balance 120 ml 240 ml Intake Oral 120 ml 240 ml # Voids 1 # Bowel Movements 2 Height (Feet): 5 Height (Inches): 3.00 Weight (Pounds): 189 General Appearance: no apparent distress, alert Neck: non-tender, normal alignment, supple Cardiovascular: normal peripheral pulses, normal rate, regular rhythm Respiratory/Chest: chest wall non-tender, lungs clear, normal breath sounds Abdomen: normal bowel sounds, non tender, soft Extremities: normal range of motion, non-tender Edema: no edema noted Arm (L), no edema noted Arm (R), no edema noted Leg (L), no edema noted Leg (R), no edema noted Pedal (L), no edema noted Pedal (R), no edema noted Generalized Neurologic: alert, responsive Skin: warm/dry Lymphatic: normal anterior cervical (L), normal anterior cervical (R), normal posterior cervical (L), normal posterior cervical (R), normal submandibular (L) , normal submandibular (R), normal supraclavicular (L), normal supraclavicular ( R), normal axillary (L), normal axillary (R), normal inguinal (L), normal inguinal (R), normal other Addy Riggs MD Nov 26, 2017 08:53
[2017-11-26] MEDS: Depakote 500mg tab ORAL SCH ×2 (09:00→13:00)
[2017-11-26] MEDS: VASCULERA 630 MG ORAL SCH (09:23)
[2017-11-26] MEDS: OLANZapine 2.5mg tab ORAL SCH (09:24)
[2017-11-26] MEDS: Heparin 5000 units/ml inj SUBQ SCH ×2 (09:25→20:55)
[2017-11-26] MEDS: Ertapenem 1 GM in NS 55 ML IVPB SCH (10:49)
[2017-11-26 11:05] LABS: ANION GAP 7 mmol/L (5-15); BLOOD UREA NITROGEN 36 mg/dL (7-18); CARBON DIOXIDE 27 MMOL/L (21-32); CHLORIDE 107 MMOL/L (98-107); CREATININE 0.9 MG/DL (0.55-1.30); POTASSIUM 3.8 MMOL/L (3.5-5.1); SODIUM 141 MMOL/L (136-145)
[2017-11-26 12:32] LABS: BASOPHILS % (AUTO) 0.6 % (0.0-2.0); EOSINOPHILS % (AUTO) 0.9 % (0.0-3.0); HEMATOCRIT 30.8 % (37.0-47.0); HEMOGLOBIN 9.8 G/DL (12.0-16.0); MEAN CORPUSCULAR VOLUME 90 FL (80-99); MONOCYTES % (AUTO) 13.3 % (1.0-10.0); NEUTROPHILS % (AUTO) 69.2 % (45.0-75.0); PLATELET COUNT 318 K/UL (150-450); RED BLOOD COUNT 3.43 M/UL (4.20-5.40); RED CELL DISTRIBUTION WIDTH 11.2 % (11.6-14.8); WHITE BLOOD COUNT 9.5 K/UL (4.8-10.8)
--- NOTE | 2017-11-26 13:59 | Diagnostic Imaging Report ---
Indication: Cough Technique: One view of the chest Comparison: 09/05/2017 Findings: Inspiration is suboptimal. There is bilateral interstitial and some airspace edema. There may be a small amount of pleural fluid on the right. There is probably some atelectasis at both lung bases. The heart size is probably upper limits of normal. When compared to the prior exam of August, the extent of interstitial and airspace edema appears similar. The amount of pleural fluid appears decreased Impression: Bilateral interstitial and to lesser extent airspace edema. Suspect small right pleural effusion
[2017-11-26] MEDS ORDERED: Depakote 125mg Sprinkles ORAL SCH (14:44)
--- NOTE | 2017-11-26 16:00 | Infectious Diseases Prog Note ---
Assessment/Plan Problems: (1) UTI (urinary tract infection) Assessment & Plan: due to MDR Morganella morgagnii , continue ertapenem for 10 days , keep in contact isolation for now (2) Sepsis Assessment & Plan: with leukocytosis , due to the above , monitor blood culture, continue ertapenem empirically (3) Weakness Assessment & Plan: due to the above , continue PT/OT . (4) Fever Assessment & Plan: due to the above improving, continue antibiotics and tylenol (5) MRSA (methicillin resistant Staphylococcus aureus) colonization Assessment & Plan: continue bactroban for five days , keep in contact isolation (6) Colonization with VRE (vancomycin-resistant enterococcus) Assessment & Plan: she is colonized (7) Sacral decubitus ulcer Assessment & Plan: continue off loading , and local wound care as per hospital protocol Subjective ROS Limited/Unobtainable: Yes Allergies: Coded Allergies: No Known Allergies (Unverified , 08/09/13) Subjective she was lying in bed, awake and comfortable, but screaming , not agitated , afebrile, no cough or SOB, no diarrhea Objective Vital Signs Last 24 Hour Vital Signs Date Time Temp Pulse Resp B/P (MAP) Pulse Ox O2 Delivery O2 Flow Rate FiO2 11/26/17 12:00 98.4 64 19 126/51 (76) 91 98.4 11/26/17 11:36 98.2 57 19 147/67 (93) 91 98.2 11/26/17 09:24 69 122/54 11/26/17 09:00 69 122/54 11/26/17 09:00 Nasal Cannula 2.0 11/26/17 08:00 97.9 69 19 126/51 (76) 91 97.9 11/26/17 04:00 98.9 70 20 140/50 (80) 91 98.9 11/26/17 00:00 99.1 81 22 147/68 (94) 93 99.1 11/25/17 21:00 Nasal Cannula 2.0 11/25/17 20:00 98.8 73 20 159/69 (99) 93 98.8 11/25/17 16:00 98.7 76 18 127/60 (82) 95 98.7 Height (Feet): 5 Height (Inches): 3.00 Weight (Pounds): 189 General Appearance: WD/WN, no acute distress HEENT: normocephalic, atraumatic, anicteric, mucous membranes moist, PERRL Respiratory/Chest: chest wall non-tender, no respiratory distress, no accessory muscle use, decreased breath sounds Cardiovascular: normal peripheral pulses, normal rate, regular rhythm, no gallop/murmur, no JVD Abdomen: normal bowel sounds, soft, non tender, no organomegaly, non distended , no mass, no scars Extremities: no cyanosis, no clubbing Skin: no rash, no lesions, ulcers Neurologic/Psychiatric: alert, responsive Lymphatic: no neck adenopathy, no groin adenopathy Musculoskeletal: normal muscle bulk, no effusion Laboratory Tests Test 11/26/17 10:15 11/26/17 12:05 Sodium Level 141 MMOL/L (136-145) Potassium Level 3.8 MMOL/L (3.5-5.1) Chloride Level 107 MMOL/L (98-107) Carbon Dioxide Level 27 MMOL/L (21-32) Anion Gap 7 mmol/L (5-15) Blood Urea Nitrogen 36 mg/dL (7-18) H Creatinine 0.9 MG/DL (0.55-1.30) Estimat Glomerular Filtration Rate mL/min (>60) Glucose Level 152 MG/DL (74-106) H Calcium Level 9.0 MG/DL (8.5-10.1) Phenytoin (Dilantin) Level 3.6 ug/mL (10-20) L Valproic Acid (Depakene) Level < 3 MCG/ML (50-100) L White Blood Count 9.5 K/UL (4.8-10.8) Red Blood Count 3.43 M/UL (4.20-5.40) L Hemoglobin 9.8 G/DL (12.0-16.0) L Hematocrit 30.8 % (37.0-47.0) L Mean Corpuscular Volume 90 FL (80-99) Mean Corpuscular Hemoglobin 28.7 PG (27.0-31.0) Mean Corpuscular Hemoglobin Concent 32.0 G/DL (32.0-36.0) Red Cell Distribution Width 11.2 % (11.6-14.8) L Platelet Count 318 K/UL (150-450) Mean Platelet Volume 7.2 FL (6.5-10.1) Neutrophils (%) (Auto) 69.2 % (45.0-75.0) Lymphocytes (%) (Auto) 16.0 % (20.0-45.0) L Monocytes (%) (Auto) 13.3 % (1.0-10.0) H Eosinophils (%) (Auto) 0.9 % (0.0-3.0) Basophils (%) (Auto) 0.6 % (0.0-2.0) Current Medications Medications (Trade) Dose Ordered Sig/Kelly Route PRN Reason Start Time Stop Time Status Last Admin Dose Admin Acetaminophen (Tylenol) 650 mg Q6H PRN ORAL Mild Pain/Temp > 100.5 11/22/17 09:15 12/22/17 09:14 Acetaminophen/ Codeine Phosphate (Tylenol #3) 1 tab Q6H PRN ORAL Severe Pain (Pain Scale 7-10) 11/22/17 09:15 11/29/17 09:14 11/22/17 10:00 Amlodipine Besylate (Norvasc) 5 mg DAILY ORAL 11/25/17 09:00 12/25/17 08:59 11/25/17 09:58 Atenolol (Tenormin) 50 mg DAILY ORAL 11/20/17 09:00 12/20/17 08:59 11/26/17 09:24 Atorvastatin Calcium (Lipitor) 20 mg BEDTIME ORAL 11/20/17 21:00 12/20/17 20:59 11/24/17 23:16 Clopidogrel Bisulfate (Plavix) 75 mg DAILY ORAL 11/20/17 09:00 12/20/17 08:59 11/26/17 09:23 Divalproex Sodium (Depakote Sprinkles) 500 mg TID ORAL 11/26/17 18:00 12/26/17 17:59 Donepezil HCl (Aricept) 5 mg QHS ORAL 11/20/17 21:00 12/20/17 20:59 11/25/17 21:35 Ertapenem 1 gm/ Sodium Chloride 55 ml @ 110 mls/hr Q24H IVPB 11/22/17 11:00 12/01/17 11:29 11/26/17 10:49 Famotidine (Pepcid) 20 mg BEDTIME ORAL 11/20/17 21:00 12/20/17 20:59 11/25/17 21:35 Heparin Sodium (Porcine) (Heparin 5000 units/ml) 5,000 units EVERY 12 HOURS SUBQ 11/20/17 09:00 12/20/17 08:59 11/26/17 09:25 Lorazepam (Ativan) 2 mg Q4H PRN ORAL agitation 11/23/17 14:00 11/30/17 13:59 11/24/17 14:11 Mirtazapine (Remeron) 15 mg BEDTIME ORAL 11/20/17 21:00 12/20/17 20:59 11/25/17 21:35 Mupirocin (Bactroban Oint) 1 applic THREE TIMES A DAY TOPIC 11/22/17 18:00 11/27/17 17:59 11/26/17 14:59 Olanzapine (ZyPREXA) 2.5 mg DAILY ORAL 11/23/17 09:00 12/23/17 08:59 11/26/17 09:24 Olanzapine (ZyPREXA) 5 mg BEDTIME ORAL 11/22/17 21:00 12/22/17 20:59 11/25/17 21:35 Olanzapine (ZyPREXA) 5 mg Q4H PRN ORAL agitation 11/19/17 22:30 12/19/17 22:29 11/21/17 12:51 Patient Own Medication (Patient's Own Med) 1 ea DAILY ORAL 11/20/17 09:00 12/20/17 08:59 11/26/17 09:23 Phenytoin (Dilantin) 400 mg QHS ORAL 11/25/17 21:00 12/25/17 20:59 11/25/17 21:34 Maria G De León M.D. Nov 26, 2017 16:00
[2017-11-26] MEDS: Depakote 125mg Sprinkles ORAL SCH (18:37)
[2017-11-26] MEDS: Phenytoin 100mg cap ORAL SCH (20:53)
[2017-11-26] MEDS: Donepezil 5mg Tab ORAL SCH (20:54)
[2017-11-26] MEDS ORDERED: Vancomycin 1500mg IVPB SCH (22:30)
--- NOTE | 2017-11-26 23:50 | General Progress Note ---
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 does not elaborate and does not know the date year or city Objective Last 24 Hour Vital Signs Date Time Temp Pulse Resp B/P (MAP) Pulse Ox O2 Delivery O2 Flow Rate FiO2 11/26/17 21:00 Nasal Cannula 2.0 11/26/17 20:00 99.7 64 22 104/47 (66) 96 99.7 11/26/17 19:04 100.3 11/26/17 18:34 100.0 11/26/17 16:00 100.0 53 20 153/69 (97) 95 100.0 11/26/17 12:00 98.4 64 19 126/51 (76) 91 98.4 11/26/17 11:36 98.2 57 19 147/67 (93) 91 98.2 11/26/17 09:24 69 122/54 11/26/17 09:00 69 122/54 11/26/17 09:00 Nasal Cannula 2.0 11/26/17 08:00 97.9 69 19 126/51 (76) 91 97.9 11/26/17 04:00 98.9 70 20 140/50 (80) 91 98.9 11/26/17 00:00 99.1 81 22 147/68 (94) 93 99.1 Intake and Output 11/25/17 11/26/17 19:00 07:00 Intake Total 120 ml 240 ml Balance 120 ml 240 ml Intake Oral 120 ml 240 ml # Voids 1 # Bowel Movements 2 Laboratory Tests 11/26/17 10:15: Sodium Level 141, Potassium Level 3.8, Chloride Level 107, Carbon Dioxide Level 27, Anion Gap 7, Blood Urea Nitrogen 36H, Creatinine 0.9, Estimat Glomerular Filtration Rate , Glucose Level 152H, Calcium Level 9.0, Phenytoin (Dilantin) Level 3.6L, Valproic Acid (Depakene) Level < 3L 11/26/17 12:05: White Blood Count 9.5, Red Blood Count 3.43L, Hemoglobin 9.8L, Hematocrit 30.8L , Mean Corpuscular Volume 90, Mean Corpuscular Hemoglobin 28.7, Mean Corpuscular Hemoglobin Concent 32.0, Red Cell Distribution Width 11.2L, Platelet Count 318, Mean Platelet Volume 7.2, Neutrophils (%) (Auto) 69.2, Lymphocytes (%) (Auto) 16.0L, Monocytes (%) (Auto) 13.3H, Eosinophils (%) (Auto ) 0.9, Basophils (%) (Auto) 0.6 Height (Feet): 5 Height (Inches): 3.00 Weight (Pounds): 189 General Appearance: no apparent distress, alert, confused Dayanna Luque MD Nov 26, 2017 23:50
[2017-11-27] VITALS: BP 128/50
[2017-11-27 04:00] VITALS: BP 141/51
[2017-11-27 08:00] VITALS: BP 137/49
[2017-11-27] MEDS: OLANZapine 2.5mg tab ORAL SCH (08:21)
[2017-11-27] MEDS: Depakote 125mg Sprinkles ORAL SCH ×2 (08:22→13:35)
[2017-11-27] MEDS: Heparin 5000 units/ml inj SUBQ SCH (08:24)
[2017-11-27] MEDS: VASCULERA 630 MG ORAL SCH (08:27)
[2017-11-27] MEDS ORDERED: Atenolol 25mg tab ORAL SCH (09:00)
[2017-11-27 12:00] VITALS: BP 136/46
[2017-11-27] MEDS: Ertapenem 1 GM in NS 55 ML IVPB SCH (12:05)
--- NOTE | 2017-11-27 14:29 | General Progress Note ---
Assessment/Plan Status: stable Assessment/Plan 1. UTI - cont Ertapenam 1 gm IV daily. ID is following. [facility] 2. HTN - off norvasc 5 mg daily. cont Atenolol 50 mg daily. 3. 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 cont Dilantin 400 mg qhs. awaiting dilantin and valproic acid levels. will taper down dilantin after IV abx is finished due to low valproic acid level and interaction with Ertapenam. 5. Generalized Weakness - cont PT and OT eval and txt. 6. GERD - on pepcid 20 mg daily. 7. Altered mental status 2nd to UTI and Dementia - cont IV abx and zyprexa for now. 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 txted with bactroban x 5 days already. 10. LBP - improved. cont tylenol # 3 one po q 6 hrs prn for mod to severe pain. and tylenol 650 mg q 6 hrs prn for mild pain. 11. Sacral ulcer and heal ulcer - cont wound care and vancomycin IV to cover for staph infection from her wounds per ID recommendation. Subjective Date patient seen: Nov 27, 2017 Time patient seen: 14:00 Constitutional: Reports: weakness HEENT: Reports: no symptoms Cardiovascular: Reports: no symptoms Respiratory: Reports: no symptoms Gastrointestinal/Abdominal: Reports: no symptoms Genitourinary: Reports: no symptoms Neurologic/Psychiatric: Reports: no symptoms Endocrine: Reports: no symptoms Hematologic/Lymphatic: Reports: no symptoms Allergies: Coded Allergies: No Known Allergies (Unverified , 08/09/13) Subjective This morning she is doing better. No sob or chest pain. Afebrile. no Nause or Vomiting. Objective Last 24 Hour Vital Signs Date Time Temp Pulse Resp B/P (MAP) Pulse Ox O2 Delivery O2 Flow Rate FiO2 11/27/17 12:00 98.7 60 22 136/46 (76) 98 98.7 11/27/17 09:00 Nasal Cannula 2.0 11/27/17 08:31 56 136/48 11/27/17 08:00 98.3 59 26 137/49 (78) 98 98.3 11/27/17 04:00 98.7 70 20 141/51 (81) 95 98.7 11/27/17 00:00 97.9 54 20 128/50 (76) 96 97.9 11/26/17 21:00 Nasal Cannula 2.0 11/26/17 20:00 99.7 64 22 104/47 (66) 96 99.7 11/26/17 19:04 100.3 11/26/17 18:34 100.0 11/26/17 16:00 100.0 53 20 153/69 (97) 95 100.0 Intake and Output 11/26/17 11/27/17 19:00 07:00 Intake Total 460 ml Balance 460 ml Intake Oral 460 ml # Voids 3 Height (Feet): 5 Height (Inches): 3.00 Weight (Pounds): 189 General Appearance: no apparent distress, alert Neck: non-tender, supple Cardiovascular: normal rate, regular rhythm Respiratory/Chest: lungs clear, normal breath sounds Abdomen: normal bowel sounds, non tender, soft Extremities: normal range of motion, non-tender Neurologic: alert, responsive Skin: warm/dry Lymphatic: normal anterior cervical (L), normal anterior cervical (R), normal posterior cervical (L), normal posterior cervical (R), normal submandibular (L) , normal submandibular (R), normal supraclavicular (L), normal supraclavicular ( R), normal axillary (L), normal axillary (R), normal inguinal (L), normal inguinal (R), normal other Addy Riggs MD Nov 27, 2017 14:29
[2017-11-27 16:00] VITALS: BP 135/50
--- NOTE | 2017-11-27 16:56 | Infectious Diseases Prog Note ---
Assessment/Plan Problems: (1) UTI (urinary tract infection) Assessment & Plan: due to MDR Morganella morgagnii , continue ertapenem for 10 days , keep in contact isolation for now (2) Sepsis Assessment & Plan: with leukocytosis , due to the above , monitor blood culture, continue ertapenem empirically (3) Weakness Assessment & Plan: due to the above , continue PT/OT . (4) Fever Assessment & Plan: suspect due to deep tissue injury from her pressure wounds with possible infection , continue vancomycin for two weeks course of treatment . keep off loading , and local pressure wound care as per protocol (5) MRSA (methicillin resistant Staphylococcus aureus) colonization Assessment & Plan: continue bactroban for five days , keep in contact isolation (6) Colonization with VRE (vancomycin-resistant enterococcus) Assessment & Plan: she is colonized (7) Sacral decubitus ulcer Assessment & Plan: continue off loading , and local wound care as per hospital protocol Subjective ROS Limited/Unobtainable: Yes Allergies: Coded Allergies: No Known Allergies (Unverified , 08/09/13) Subjective she was lying in bed, awake and comfortable, not agitated , afebrile, no cough or SOB, no diarrhea Objective Vital Signs Last 24 Hour Vital Signs Date Time Temp Pulse Resp B/P (MAP) Pulse Ox O2 Delivery O2 Flow Rate FiO2 11/27/17 12:00 98.7 60 22 136/46 (76) 98 98.7 11/27/17 09:00 Nasal Cannula 2.0 11/27/17 08:31 56 136/48 11/27/17 08:00 98.3 59 26 137/49 (78) 98 98.3 11/27/17 04:00 98.7 70 20 141/51 (81) 95 98.7 11/27/17 00:00 97.9 54 20 128/50 (76) 96 97.9 11/26/17 21:00 Nasal Cannula 2.0 11/26/17 20:00 99.7 64 22 104/47 (66) 96 99.7 11/26/17 19:04 100.3 11/26/17 18:34 100.0 Height (Feet): 5 Height (Inches): 3.00 Weight (Pounds): 189 General Appearance: WD/WN, no acute distress HEENT: normocephalic, atraumatic, anicteric, mucous membranes moist, PERRL Respiratory/Chest: normal breath sounds, no respiratory distress, no accessory muscle use, decreased breath sounds Cardiovascular: normal peripheral pulses, normal rate, regular rhythm, no gallop/murmur, no JVD Abdomen: normal bowel sounds, soft, non tender, no organomegaly, non distended , no mass, no scars Extremities: no cyanosis, no clubbing Skin: no rash, no lesions, no ulcers Neurologic/Psychiatric: alert, oriented x 3 Current Medications Medications (Trade) Dose Ordered Sig/Kelly Route PRN Reason Start Time Stop Time Status Last Admin Dose Admin Acetaminophen (Tylenol) 650 mg Q6H PRN ORAL Mild Pain/Temp > 100.5 11/22/17 09:15 12/22/17 09:14 11/26/17 18:34 Acetaminophen/ Codeine Phosphate (Tylenol #3) 1 tab Q6H PRN ORAL Severe Pain (Pain Scale 7-10) 11/22/17 09:15 11/29/17 09:14 11/22/17 10:00 Atenolol (Tenormin) 25 mg DAILY ORAL 11/27/17 09:00 12/27/17 08:59 Atorvastatin Calcium (Lipitor) 20 mg BEDTIME ORAL 11/20/17 21:00 12/20/17 20:59 11/26/17 20:54 Clopidogrel Bisulfate (Plavix) 75 mg DAILY ORAL 11/20/17 09:00 12/20/17 08:59 11/27/17 08:21 Divalproex Sodium (Depakote Sprinkles) 500 mg TID ORAL 11/27/17 17:00 12/27/17 16:59 Donepezil HCl (Aricept) 5 mg QHS ORAL 11/20/17 21:00 12/20/17 20:59 11/26/17 20:54 Ertapenem 1 gm/ Sodium Chloride 55 ml @ 110 mls/hr Q24H IVPB 11/22/17 11:00 12/01/17 11:29 11/27/17 12:05 Famotidine (Pepcid) 20 mg BEDTIME ORAL 11/20/17 21:00 12/20/17 20:59 11/26/17 20:54 Heparin Sodium (Porcine) (Heparin 5000 units/ml) 5,000 units EVERY 12 HOURS SUBQ 11/20/17 09:00 12/20/17 08:59 11/27/17 08:24 Lorazepam (Ativan) 2 mg Q4H PRN ORAL agitation 11/23/17 14:00 11/30/17 13:59 11/24/17 14:11 Mirtazapine (Remeron) 15 mg BEDTIME ORAL 11/20/17 21:00 12/20/17 20:59 11/26/17 20:54 Mupirocin (Bactroban Oint) 1 applic THREE TIMES A DAY TOPIC 11/22/17 18:00 11/27/17 17:59 11/27/17 13:15 Olanzapine (ZyPREXA) 2.5 mg DAILY ORAL 11/23/17 09:00 12/23/17 08:59 11/27/17 08:21 Olanzapine (ZyPREXA) 5 mg BEDTIME ORAL 11/22/17 21:00 12/22/17 20:59 11/26/17 20:54 Olanzapine (ZyPREXA) 5 mg Q4H PRN ORAL agitation 11/19/17 22:30 12/19/17 22:29 11/21/17 12:51 Patient Own Medication (Patient's Own Med) 1 ea DAILY ORAL 11/20/17 09:00 12/20/17 08:59 11/26/17 09:23 Phenytoin (Dilantin) 400 mg QHS ORAL 11/25/17 21:00 12/25/17 20:59 11/26/17 20:53 Vancomycin HCl (Vanco rx to dose) 1 ea DAILY PRN MISC Per rx protocol 11/26/17 22:00 12/26/17 21:59 Vancomycin HCl/ Dextrose 250 ml @ 125 mls/hr Q24H IVPB 11/26/17 22:30 12/01/17 22:29 11/26/17 22:57 Maria G De León M.D. Nov 27, 2017 16:56
[2017-11-27] MEDS ORDERED: Depakote 125mg Sprinkles ORAL SCH (17:00)
--- NOTE | 2017-11-28 00:03 | General Progress Note ---
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 with behavioral dist depakote 500mg po tid provided ro/st zyprexa 5mg qhs start ativan prn dw daughter Subjective Date patient seen: Nov 27, 2017 Neurologic/Psychiatric: Reports: anxiety, depressed Allergies: Coded Allergies: No Known Allergies (Unverified , 08/09/13) Subjective the pt is calmer. does not elaborate and does not know the date year or city Objective Last 24 Hour Vital Signs Date Time Temp Pulse Resp B/P (MAP) Pulse Ox O2 Delivery O2 Flow Rate FiO2 11/27/17 16:00 98.0 60 24 135/50 (78) 98 98.0 11/27/17 12:00 98.7 60 22 136/46 (76) 98 98.7 11/27/17 09:00 Nasal Cannula 2.0 11/27/17 08:31 56 136/48 11/27/17 08:00 98.3 59 26 137/49 (78) 98 98.3 11/27/17 04:00 98.7 70 20 141/51 (81) 95 98.7 Height (Feet): 5 Height (Inches): 3.00 Weight (Pounds): 189 Dayanna Luque MD Nov 28, 2017 00:03
== END 2017-11-27 18:41 | DRG 871 ==
LOC: EDBD 17:46 → EMR 18:35 → 4E 19:11 → EDBEDREQ 20:01
DX: A41.9 Sepsis, unspecified organism (principal); G93.41 Metabolic encephalopathy; N39.0 Urinary tract infection, site not specified; F03.91 Unspecified dementia, unspecified severity, with behavioral disturbance; L89.150 Pressure ulcer of sacral region, unstageable; I10 Essential (primary) hypertension; E78.5 Hyperlipidemia, unspecified; G40.909 Epilepsy, unspecified, not intractable, without status epilepticus; B96.89 Other specified bacterial agents as the cause of diseases classified elsewhere; Z22.322 Carrier or suspected carrier of Methicillin resistant Staphylococcus aureus; Z16.24 Resistance to multiple antibiotics; I25.10 Atherosclerotic heart disease of native coronary artery without angina pectoris; K21.9 Gastro-esophageal reflux disease without esophagitis; Z98.890 Other specified postprocedural states; M54.5 Low back pain; Z22.1 Carrier of other intestinal infectious diseases; Z16.22 Resistance to vancomycin related antibiotics; R53.1 Weakness; L89.629 Pressure ulcer of left heel, unspecified stage
CPT/HCPCS: 36415; 71045; 80048; 80053; 80164; 80185; 80329; 81003; 84443; 85025; 87040; 87081; 87086; 87181; 96365; 99285